=== PATIENT | female | born 1935 | race Caucasian/White ===

== ENCOUNTER 2017-08-09 13:11 | Inpatient (IN) | payer MEDICARE, BC ==
[2017-08-09] MEDS ORDERED: Furosemide 20 MG/2 ML VIAL IV ONE ×3 (13:45→21:00)
[2017-08-09] MEDS ORDERED: Acetaminophen 325 MG Tab PO PRN (13:47)
[2017-08-09] MEDS: Sodium Chloride 0.9% 10 ML Syringe FLUSH PRN (14:31)
[2017-08-09] MEDS ORDERED: Take Home: Albuterol 6.7 GM Inhaler, 1 Inhaler Pack INH PRN (14:50)
[2017-08-09] MEDS ORDERED: MYCOLOG TOP PRN (16:07)
[2017-08-09] MEDS: Omeprazole 20 MG Cap.CR PO SCH (16:29)
[2017-08-09] MEDS: Ferrous Sulfate 325 MG Tab PO SCH (16:29)
[2017-08-09] MEDS ORDERED: Albuterol 8 GM Inhaler INH PRN (16:51)
[2017-08-09] MEDS ORDERED: Dextran 70/Hypromellose/PF Ophth Soln 0.9 ML UD EYEBOTH PRN (17:00)
[2017-08-09] MEDS: Albuterol 0.083% 2.5 MG/3 ML Neb Soln NEB PRN (18:50)
[2017-08-09] MEDS: Acetaminophen 500 MG Tab PO SCH (21:14)
[2017-08-09] MEDS: Beta-Carotene (Vitamin A) w/Vitamin C & E plus Minerals Tab PO SCH (21:15)
[2017-08-09] MEDS: atorvaSTATin 10 MG Tab PO SCH (21:15)
[2017-08-09] MEDS: Pramipexole 0.125 MG Tab PO SCH (21:15)
[2017-08-09] MEDS: busPIRone 15 MG Tab PO SCH (21:15)
[2017-08-09] MEDS: Multivitamins with Iron/Calcium/Folic Acid/Minerals Tab PO SCH (21:16)
[2017-08-09] MEDS: Cholecalciferol (Vitamin D3) 1,000 Unit Tab PO SCH (21:16)
[2017-08-09] MEDS: Calcium Carbonate/Vitamin D3 1250 MG-200 Unit Tab PO SCH (21:16)
[2017-08-09] MEDS: Carvedilol 3.125 MG Tab PO SCH (21:16)
--- NOTE | 2017-08-10 00:07 | HP ---
CHIEF COMPLAINT: Shortness of breath with exertion, fatigue, and weakness. HISTORY OF PRESENT ILLNESS: The patient is an 81-year-old female, who presented to the clinic today with her daughter. The patient was having problems with swelling of her legs and shortness of breath for two weeks. She has not taken her fluid pills since 07/28/2017, but has recently started them. The patient's daughter had a fairly sudden decline of health and on , and the was just yesterday. The family had called in with concerns about shortness of breath, which was possibly anxiety related, so she was given an alprazolam to help her sleep. She did admit to not taking her fluid pills since 07/28/2017, but in actuality, she has only been taking her morning dose of pills, and had not been taking her evening dose of pills for quite some time. She does have a pressure or heaviness in her chest with exertion, but with rest, it is okay. The patient is known to have diastolic CHF. She last had her echocardiogram on 06/26/2017, at which time, ejection fraction was 55% and mild hypertrophy of left ventricle. She had moderate aortic stenosis with mean gradient of 35, mild mitral stenosis, and moderate mitral regurgitation. She had [id number] pulmonary hypertension. When compared to 2016, it could not as there were not as many calibrations taken. At the time an echo was done, she was not having any sort of chest pain, not having any shortness of breath with exertion, or chest pain. To note, patient has not had any problems with coronary artery disease. She has had hypertension, hyperlipidemia, and hyperglycemia. The patient had had lab work last done at the clinic in 05/2017, which showed proBNP of 218 with normal being 100 or less, glucose of 115, creatinine of 0.76, BUN of 14, sodium of 134, potassium of 4.7, and calcium of 9.3. LFTs were normal. Albumin was 3.9. Lipids showed total cholesterol of 177 and LDL of 100. Hemoglobin A1c had been 5.4 and TSH of 0.83. White blood cell count was 6.8, hemoglobin was 13.8, MCV was 94.4, and platelets were 194. The patient has been feeling quite sad over her daughter's decline of health. To note, that patient does have nocturnal oxygen that she uses. It was noted today when she presented to the clinic, that her O2 saturations had dropped down to 85% to 86%, so oxygen was placed in the clinic on her. MEDICATIONS: The patient is currently on 1. Tylenol 500 mg two pills twice a day. 2. Alprazolam 0.25 mg one pill twice a day as needed (just started). 3. Amlodipine 5 mg one pill at bedtime. 4. Aspirin 81 mg one pill daily. 5. Lipitor 20 mg half a pill a day. 6. Bilberry 80 mg one pill daily. 7. Biotin 5 mg one pill daily. 8. BuSpar 15 mg 1-/2 pills twice a day. 9. Calcium 600 mg one pill twice a day. 10.Carvedilol 3.125 mg two pills in the morning and one pill in the evening. 11.Celexa 40 mg one pill a day. 12.Cranberry pills 300 mg one pill a day, cranberry Vaccinium oxycoccos one pill daily, and cranberry with vitamin C 250/30 one pill a day. 13.Furosemide 40 mg one pill in the morning and half pill in the evening (has only been taking one pill in the morning). 14.Levothyroxine 50 mcg one pill a day. 15.Losartan 100 mg one pill a day. 16.Lutein 20 mg one pill a day. 17.Magnesium citrate one pill daily. 18.Multivitamin one pill daily. 19.Ocuvite two pills once a day. 20.Mycolog-II cream b.i.d. p.r.n. 21.[place]clouth-3 1000 mg one pill daily. 22.Omeprazole 20 mg one pill in the morning. 23.Oxygen 1 L at bedtime. 24.Systane eye drops, one drop every four hours as needed. 25.Mirapex 0.125 mg two pills take 2 hours before bedtime and one pill in the morning. 26.ProAir two puffs every 4 hours as needed. 27.Vitamin D 1000 units one pill at bedtime. ALLERGIES: Codeine causes hives. Lisinopril causes a cough. Amoxicillin, nausea and vomiting. Augmentin, nausea and vomiting. Hydrocodone, nausea and vomiting and diarrhea. Tramadol, nausea and diarrhea. PAST MEDICAL HISTORY: The patient has had 1. Hypertension. 2. Hypercholesterolemia. 3. Chronic diastolic CHF noted on 11/13/2012. 4. She has had cardiomegaly noted in 2011. Most recent echocardiogram on 06/26/2017 showed ejection fraction of 55%. 5. She has had mitral valve stenosis with aortic valve stenosis noted since 2007. Echo done in 06/2017, same ejection fraction of 55%. 6. The patient had a normal Cardiolite stress test in 02/2005. 7. Abnormal EKG in 2011, she started Coreg. 8. The patient has had colonoscopy on 12/25/2002, and she was not going to have a further one that she is over 78 now. 9. She has had candidiasis of her vulva and vagina. 10.She has had a benign essential tremor, seen by Neurology. 11.She has had anxiety and started buspirone in 2012, increased dose in 2012. 12.She has had fasting hyperglycemia noted in 2016 at 112. 13.She had normal bone density tests in 2003 and 2015. 14.Pulmonary hypertension was noted on 06/26/2017 with an ejection fraction of 55% and pulmonary artery pressure of 56. 15.She has had arthralgias. 16.She has had hypertension. 17.Chronic low back pain. 18.She has had back surgery in 04/2006 with revision at L5-S1. She has had epidural injections. 19.She has had chronic obstructive lung disease with PFTs done on 10/25/2006, which showed FEV1 of 91%, FEF 25-75 improved with bronchodilator. 20.She has had gastroesophageal reflux disease noted by upper GI in 2005. 21.She has had hypothyroidism. 22.Macular degeneration. 23.Obesity. 24.Obstructive sleep apnea with nocturnal hypoxemia. 25.She has had restless legs syndrome, on Mirapex. 26.Chronic bronchitis. 27.She had TIA in 2003 with tingling of her face and recurrent episode in 2003. PAST SURGICAL HISTORY: 1. She has had joint replacement in 2004. 2. Left CAMRYN in 2009. 3. She had a right TKA on 06/03/2013. 4. She has had bilateral cataract surgery. 5. She has had Avastin injections into her eyes. She has had retinal procedures done with Avastin. 6. She has had an appendectomy. 7. Bladder surgery. 8. Popliteal cyst space surgery. 9. She has had a hysterectomy, vaginal. 10.She has had spine surgery at L5-S1. 11.She has had tonsillectomy and adenoidectomy. FAMILY MEDICAL HISTORY: Mother has had heart attack, strokes, and cataracts. Father had diabetes, stroke, heart attacks, and macular degeneration. Sister had liver disease and cataracts. Her brother has had colorectal cancer. Her brother has had peritonitis. Daughter had stomach cancer at the age of 59, and has had severe childhood gray to her trunk. One son in a fire. There have been some alcohol issues and depression with some family members. SOCIAL HISTORY: The patient was in 2013. She will socially consume alcohol. She does not smoke. Her has had laryngeal cancer and severe COPD. The patient had been exposed to secondhand smoke. She does not exercise on a regular basis. She did have a grandson living with her who had alcohol issues. She is active in her congregational as well as family functions. REVIEW OF SYSTEMS: Constitutional: Her weight, which she thought had gone down, but has stayed the same. No dizziness. She feels fatigued. Cardiopulmonary: She does have chest pain with exertion as well as shortness of breath with exertion. Gastrointestinal: She denies any nausea. No diarrhea. No blood in her stools. Genitourinary: No problems with urination. Joints: She does have some back pain as well as neck pain. Dermatologic: No skin rashes were noted. PHYSICAL EXAMINATION: Vital Signs: Objectively, her weight is 228, which is up four pounds from 2 months ago. Blood pressure is 118/70, temperature is 97.3, pulse is 61, and sats are 93% on 2 L, but was 85 on room air. Skin: Pale, warm, and dry. HEENT: Pupils are equal and reactive to light. Pharynx is normal. Neck: No JVD was appreciated. No anterior cervical lymphadenopathy or thyromegaly. Heart: Regular rate and rhythm with 2/6 systolic ejection murmur. Lungs: Have diminished breath sounds on bases, but she has a weak inspiratory effort. Abdomen: Obese and soft. No hepatosplenomegaly. Genitals: Declined. Breasts: Declined. Extremities: Lower extremities do have 2+ edema. Neurologic: She is slightly hard of hearing. She is pleasant to visit with. LABORATORY DATA: Came back that her hemoglobin was 6.7 with MCV of 88, MCH of 25, platelets of 285, 75 segs, 1 band, 14 lymphocytes, moderate anisocytosis, moderate poikilocytosis, few schistocytes, and hypochromasia. Her sodium was 141, potassium was 3.8, creatinine was 0.9, BUN was 23, glucose was 107, calcium corrected was 8.79, albumin was 2.9, alkaline phosphatase 86, ALT 20, and AST 13. Troponin I is normal at 0.025. ProBNP was elevated at 2431. TSH is normal at 2.4. DIAGNOSTIC STUDIES: EKG shows a normal sinus rhythm with a widened QRS in lateral leads, which is new from 2014's EKG; consider inferior lateral ischemia. Chest x-ray shows cardiomegaly with CHF present. IMPRESSION: 1. Acute on chronic diastolic congestive heart failure. 2. Profound anemia. 3. Abnormal EKG with QRS widening, suspect ischemic cardiomyopathy. 4. Aortic stenosis. 5. Mitral regurgitation. 6. Anxiety disorder. 7. Depression. 8. Chronic nocturnal hypoxemia. PLAN: The patient will be admitted to Acute Care. We will transfuse with two units of packed RBCs. She was explained risks, benefits, and alternatives of transfusions including risk of reaction to blood products or acquisition of infection. Also, we will diurese her with IV diuretics very carefully. Her blood pressure is somewhat borderline hypotensive. We will hold her amlodipine. We will get her back on oral Lasix once she is diuresed. She will need to have further workup of source of gastrointestinal blood loss as she has had previous colonoscopy remotely. She has had known upper GI problems. We will increase her Prilosec to 20 mg b.i.d. The patient is code level 1 status. If her condition would deteriorate, she may need transfer to [place]. GM08/09/2017 17:38:56 MODL: 08/09/2017 23:38:27 /[id number]
[2017-08-10] MEDS: Omeprazole 20 MG Cap.CR PO SCH ×2 (06:07→16:24)
[2017-08-10] MEDS: Levothyroxine 50 MCG Tab PO SCH (06:07)
[2017-08-10] MEDS: Albuterol 0.083% 2.5 MG/3 ML Neb Soln NEB PRN ×2 (06:10→10:55)
[2017-08-10] MEDS ORDERED: Omeprazole 20 MG Cap.CR PO SCH (08:00)
[2017-08-10] MEDS: Citalopram 20 MG Tab PO SCH (08:10)
[2017-08-10] MEDS: busPIRone 15 MG Tab PO SCH ×2 (08:10→22:21)
[2017-08-10] MEDS: Losartan 50 MG Tab PO SCH (08:11)
[2017-08-10] MEDS: Aspirin 81 MG Tab.EC PO SCH (08:11)
[2017-08-10] MEDS: Beta-Carotene (Vitamin A) w/Vitamin C & E plus Minerals Tab PO SCH ×2 (08:11→22:17)
[2017-08-10] MEDS: Multivitamins with Iron/Calcium/Folic Acid/Minerals Tab PO SCH ×2 (08:11→22:17)
[2017-08-10] MEDS: Calcium Carbonate/Vitamin D3 1250 MG-200 Unit Tab PO SCH ×2 (08:11→22:17)
[2017-08-10] MEDS: Ferrous Sulfate 325 MG Tab PO SCH (08:11)
[2017-08-10] MEDS: Cranberry 500 MG Cap PO SCH (08:11)
[2017-08-10] MEDS: Carvedilol 6.25 MG Tab PO SCH (08:11)
[2017-08-10] MEDS: Pramipexole 0.125 MG Tab PO SCH ×2 (08:12→22:17)
[2017-08-10] MEDS: Fish Oil/Omega-3 Fatty Acids 1 Gm Cap PO SCH (08:12)
[2017-08-10] MEDS: LUTEIN PO SCH (08:13)
[2017-08-10] MEDS: Sodium Chloride 0.9% 10 ML Syringe FLUSH PRN (08:14)
[2017-08-10] MEDS: Acetaminophen 500 MG Tab PO SCH ×2 (08:15→22:19)
[2017-08-10] MEDS ORDERED: Furosemide 40 MG/4 ML VIAL IV SCH (08:15)
[2017-08-10] MEDS: BILBERRY FRUIT EXTRACT PO SCH (08:16)
--- NOTE | 2017-08-10 08:54 | PN ---
Progress Note for KELLY STERN Date: 08/10/2017 Room #: VM.215 SUBJECTIVE: The patient is still feeling fatigued and weak. She did receive her 2 units of blood during the evening. She denies feeling more short of breath. She denies chest pain. She does get winded easily with activity. OBJECTIVE: Vital Signs: Her weight is 98 kg today, which is down 3 kg from admission. Blood pressure is 127/53, pulse 68, temperature 36.4, sats are 92% on 3 L, and respiratory rate is 24. General: The patient still appears to be slightly winded. She is still pale. Heart: Regular rate and rhythm with a 3/6 systolic ejection murmur. Lungs: Diminished breath sounds on bases. Abdomen: Soft. Extremities: 1+ edema. Neurologic: She does move all extremities symmetric. She does appear slightly anxious still. LABORATORY DATA: Her lab today shows that her hemoglobin has improved to 7.8 from 5.6 on admission. Her white blood cell count 6.5 and platelets 223. Sodium is 143, potassium dropped to 3.3, creatinine 0.9, GFR 60, calcium 7.6, albumin had been low on admission, and magnesium normal at 2.2. Urinalysis was normal on admission. IMAGING: EKG today shows sinus rhythm, left bundle branch block. QRS duration is 147, which has increased from 136 from yesterday. Chest x-ray is pending. IMPRESSION: 1. Exacerbation of congestive heart failure, improved. 2. Profound anemia, improved after transfusion. 3. Chronic congestive heart failure. 4. Aortic stenosis. 5. Anxiety disorder. 6. Hypokalemia. 7. Malnutrition. PLAN: The patient was started yesterday on oral iron pills. We will start her on oral potassium today. We will continue IV Lasix today. We will check her lab tomorrow. If stable tomorrow and if strong enough, the patient could be considered to be discharged home and to be resumed on her maintenance Lasix of 20 in the morning and 10 in the evening. To note, her troponin is 0.037, which is still normal, but did trend upward just slightly, which is still normal. The patient will eventually need to have a cardiac workup because of her new left bundle branch block that was present. Dr. Maribel Lu will follow the patient for the weekend. Chest xray viewed, and does appear worse with right lung congestion. Will check for influenza, as well as place on antibiotic to cover for possible pneumonitis. GM08/10/2017 08:25:54 MODL: 08/10/2017 08:46:25 /[id number] MTDD
[2017-08-10] MEDS: BIOTIN 5 MG PO SCH (09:10)
[2017-08-10] MEDS: AZO CRANBERRY PO SCH (09:10)
[2017-08-10] MEDS: MAGNESIUM CITRATE 100 MG PO SCH (09:10)
[2017-08-10] MEDS: Potassium Chloride 10 MEQ Tab.ER PO SCH (09:16)
[2017-08-10] MEDS: ALPRAZolam 0.25 MG Tab PO PRN (09:21)
[2017-08-10] MEDS ORDERED: Azithromycin 250 MG Tab PO ONE (10:00)
[2017-08-10] MEDS: Furosemide 40 MG/4 ML VIAL IV SCH (16:24)
[2017-08-10] MEDS: Cholecalciferol (Vitamin D3) 1,000 Unit Tab PO SCH (22:17)
[2017-08-10] MEDS: atorvaSTATin 10 MG Tab PO SCH (22:18)
[2017-08-10] MEDS: Carvedilol 3.125 MG Tab PO SCH (22:18)
[2017-08-11] MEDS: Albuterol 0.083% 2.5 MG/3 ML Neb Soln NEB PRN ×3 (02:42→20:45)
[2017-08-11] MEDS: ALPRAZolam 0.25 MG Tab PO PRN ×2 (02:45→20:42)
[2017-08-11] MEDS ORDERED: Azithromycin 250 MG Tab PO SCH (08:00)
[2017-08-11] MEDS: Levothyroxine 50 MCG Tab PO SCH (08:17)
[2017-08-11] MEDS: Omeprazole 20 MG Cap.CR PO SCH ×2 (08:17→16:55)
[2017-08-11] MEDS: Acetaminophen 500 MG Tab PO SCH ×2 (08:28→20:41)
[2017-08-11] MEDS: BILBERRY FRUIT EXTRACT PO SCH (08:29)
[2017-08-11] MEDS: busPIRone 15 MG Tab PO SCH ×2 (08:29→20:43)
[2017-08-11] MEDS: BIOTIN 5 MG PO SCH (08:29)
[2017-08-11] MEDS: Calcium Carbonate/Vitamin D3 1250 MG-200 Unit Tab PO SCH ×2 (08:30→20:42)
[2017-08-11] MEDS: Citalopram 20 MG Tab PO SCH (08:31)
[2017-08-11] MEDS: Carvedilol 6.25 MG Tab PO SCH (08:31)
[2017-08-11 08:32] LABS: CHLORIDE,CL 105 mmol/L (98-107); SODIUM,NA 144 mmol/L (136-145)
[2017-08-11] MEDS: Losartan 50 MG Tab PO SCH (08:32)
[2017-08-11] MEDS: Ferrous Sulfate 325 MG Tab PO SCH (08:32)
[2017-08-11] MEDS: AZO CRANBERRY PO SCH (08:33)
[2017-08-11] MEDS: Cranberry 500 MG Cap PO SCH (08:33)
[2017-08-11] MEDS: Beta-Carotene (Vitamin A) w/Vitamin C & E plus Minerals Tab PO SCH ×2 (08:33→20:42)
[2017-08-11] MEDS: Fish Oil/Omega-3 Fatty Acids 1 Gm Cap PO SCH (08:34)
[2017-08-11] MEDS: Multivitamins with Iron/Calcium/Folic Acid/Minerals Tab PO SCH ×2 (08:34→20:42)
[2017-08-11] MEDS: Aspirin 81 MG Tab.EC PO SCH (08:34)
[2017-08-11] MEDS: LUTEIN PO SCH (08:36)
[2017-08-11] MEDS: MAGNESIUM CITRATE 100 MG PO SCH (08:36)
[2017-08-11] MEDS: Sodium Chloride 0.9% 10 ML Syringe FLUSH PRN (08:40)
[2017-08-11] MEDS: Potassium Chloride 10 MEQ Tab.ER PO SCH (08:40)
[2017-08-11] MEDS: Furosemide 40 MG Tab PO SCH ×2 (08:41→16:55)
[2017-08-11] MEDS: Pramipexole 0.125 MG Tab PO SCH ×2 (08:41→20:41)
[2017-08-11] MEDS: Furosemide 40 MG/4 ML VIAL IV SCH (09:00)
--- NOTE | 2017-08-11 09:51 | PCM.PN ---
- General Info Date of Service: 08/11/17 Subjective Update: Patient is feeling quite well this morning. She states her shortness of breath is much improved and is near her baseline. She is still coughing but this is improved some as well. No chest pain. No leg swelling. No fever or chills. She is wondering if she can go home today. - Review of Systems General: Reports: No Symptoms HEENT: Reports: No Symptoms Pulmonary: Reports: Shortness of Breath, Cough Cardiovascular: Reports: No Symptoms Gastrointestinal: Reports: No Symptoms Genitourinary: Reports: No Symptoms Musculoskeletal: Reports: No Symptoms Skin: Reports: No Symptoms - Patient Data Vitals - Most Recent: Last Vital Signs Temp 36.7 C 08/11/17 06:00 Pulse 76 08/11/17 08:19 Resp 18 08/11/17 06:00 BP 136/44 L 08/11/17 08:32 Pulse Ox 91 L 08/11/17 07:38 Weight - Most Recent: 96.67 kg I&O - Last 24 Hours: Intake & Output 08/10/17 08/11/17 08/11/17 22:59 06:59 14:59 Intake Total 200 720 200 Output Total 600 950 Balance -400 -230 200 Lab Results Last 24 Hours: Laboratory Results - last 24 hr 08/11/17 08/11/17 Range/Units 07:29 07:29 WBC 7.1 (4.0-10.0) x10^3/uL RBC 2.62 L (4.00-5.50) x10^6/uL Hgb 7.1 L* (12.0-16.0) g/dL Hct 24.0 L (33.0-47.0) % MCV 91.6 (78.0-93.0) fL MCH 27.1 (26.0-32.0) pg MCHC 29.6 L (32.0-36.0) g/dL RDW Coeff of Don 15.5 H (10.0-15.0) % Plt Count 248 (130-400) x10^3/uL Neut % (Auto) 74.7 (50.0-80.0) % Lymph % (Auto) 13.1 L (25.0-50.0) % [place] % (Auto) 9.4 (2.0-11.0) % Eos % (Auto) 2.5 (0.0-4.0) % Baso % (Auto) 0.3 (0.2-1.2) % Sodium 144 (136-145) mmol/L Potassium 3.4 L (3.5-5.1) mmol/L Chloride 105 (98-107) mmol/L Carbon Dioxide 32 (21-32) mmol/L BUN 15 (7-18) mg/dL Creatinine 0.8 (0.55-1.02) mg/dL Est Cr Clr Drug Dosing 38.27 mL/min Estimated GFR (MDRD) > 60 Glucose 95 (74-106) mg/dL Calcium 7.5 L (8.5-10.1) mg/dL C-Reactive Protein 1.1 H (<=0.9) mg/dL NT-Pro-B Natriuret Pep 3034 H (<=450) pg/mL Wili Results Last 24 Hours: Microbiology 08/10/17 10:00 Influenza Type A Antigen Screen - Final Nasopharyngeal Swab - Nare, Left NEGATIVE INFLUENZA A VIRUS AG Influenza Type B Antigen Screen - Final NEGATIVE INFLUENZA B VIRUS AG Med Orders - Current: Current Medications Acetaminophen (Tylenol) 650 mg PO Q4H PRN PRN Reason: Pain (Mild 1-3)/fever Acetaminophen (Tylenol Extra Strength) 1,000 mg PO BID [facility] Last Admin: 08/11/17 08:28 Dose: 1,000 mg Albuterol (Proventil Neb Soln) 2.5 mg NEB Q4HRRT PRN PRN Reason: Cough Last Admin: 08/11/17 07:37 Dose: 2.5 mg Albuterol (Ventolin Hfa) 0 gm INH Q4H PRN PRN Reason: Shortness of Breath Alprazolam (Xanax) 0.25 mg PO Q12H PRN PRN Reason: Anxiety Last Admin: 08/11/17 02:45 Dose: 0.25 mg Artificial Tears (Tears Naturale Free) 0 each EYEBOTH Q4H PRN PRN Reason: DRY EYE Last Admin: 08/09/17 21:16 Dose: 1 each Aspirin (Halfprin) 81 mg PO DAILY [facility] Last Admin: 08/11/17 08:34 Dose: 81 mg Atorvastatin Calcium (Lipitor) 10 mg PO BEDTIME [facility] Last Admin: 08/10/17 22:18 Dose: 10 mg Azithromycin (Zithromax) 250 mg PO DAILY [facility] Stop: 08/16/17 08:01 Last Admin: 08/11/17 08:35 Dose: 250 mg Buspirone HCl (Buspar) 22.5 mg PO BID [facility] Last Admin: 08/11/17 08:29 Dose: 22.5 mg Calcium Carbonate (Calcium Carbonate/Vitamin D 1250 Mg-200 Unit) 1 tab PO BID [facility] Last Admin: 08/11/17 08:30 Dose: 1 tab Carvedilol (Coreg) 3.125 mg PO BEDTIME [facility] Last Admin: 08/10/17 22:18 Dose: 3.125 mg Carvedilol (Coreg) 6.25 mg PO DAILY [facility] Last Admin: 08/11/17 08:31 Dose: 6.25 mg Cholecalciferol (Vitamin D3) 1,000 units PO BEDTIME [facility] Last Admin: 08/10/17 22:17 Dose: 1,000 units Citalopram Hydrobromide (Celexa) 40 mg PO DAILY [facility] Last Admin: 08/11/17 08:31 Dose: 40 mg Cranberry (Cranberry) 500 mg PO DAILY [facility] Last Admin: 08/11/17 08:33 Dose: 500 mg Ferrous Sulfate (Ferrous Sulfate) 325 mg PO DAILY [facility] Last Admin: 08/11/17 08:32 Dose: 325 mg Fish Oil (Fish Oil) 1 gm PO DAILY [facility] Last Admin: 08/11/17 08:34 Dose: 1 gm Furosemide (Lasix) 40 mg PO BIDDIURETIC [facility] Last Admin: 08/11/17 08:41 Dose: 40 mg Levothyroxine Sodium (Synthroid) 50 mcg PO DAILY@0700 [facility] Last Admin: 08/11/17 08:17 Dose: 50 mcg Losartan Potassium (Cozaar) 100 mg PO DAILY [facility] Last Admin: 08/11/17 08:32 Dose: 100 mg Multivitamins/Minerals (Thera M Plus) 1 tab PO BID [facility] Last Admin: 08/11/17 08:34 Dose: 1 tab Multivitamins/Minerals (Prosight) 1 tab PO BID [facility] Last Admin: 08/11/17 08:33 Dose: 1 tab Bilberry Fruit (Extract [Bilberry]) 1 tab PO DAILY [facility] Last Admin: 08/11/17 08:29 Dose: Not Given Lutein [Lutein] (Own (Supply)) 1 tab PO DAILY [facility] Last Admin: 08/11/17 08:36 Dose: Not Given Mycolog. ( Triamcinolone/Nystatin) Cream (Own Supply) 1 applic TOP BID PRN PRN Reason: Itching Biotin 5 Mg (Own (Supply)) 0 mg PO DAILY [facility] Last Admin: 08/11/17 08:29 Dose: Not Given Azo Cranberry Softgel 1 Cap (Own Supply) 1 cap PO DAILY [facility] Last Admin: 08/11/17 08:33 Dose: Not Given Magnesium Citrate (100mg (Own Supply)) 0 mg PO DAILY [facility] Last Admin: 08/11/17 08:36 Dose: Not Given Omeprazole (Omeprazole) 20 mg PO BIDAC [facility] Last Admin: 08/11/17 08:17 Dose: 20 mg Potassium Chloride (Klor-Con 10) 10 meq PO DAILY [facility] Last Admin: 08/11/17 08:40 Dose: 10 meq Pramipexole Dihydrochloride (Mirapex) 0.125 mg PO DAILY [facility] Last Admin: 08/11/17 08:41 Dose: 0.125 mg Pramipexole Dihydrochloride (Mirapex) 0.25 mg PO BEDTIME [facility] Last Admin: 08/10/17 22:17 Dose: 0.25 mg Sodium Chloride (Saline Flush) 10 ml FLUSH ASDIRECTED PRN PRN Reason: Keep Vein Open Last Admin: 08/11/17 08:40 Dose: 10 ml Discontinued Medications Azithromycin (Zithromax) 500 mg PO ONETIME ONE Stop: 08/10/17 10:01 Last Admin: 08/10/17 10:50 Dose: 500 mg Furosemide (Lasix) 20 mg IV ONETIME ONE Stop: 08/09/17 13:46 Last Admin: 08/09/17 14:30 Dose: 20 mg Furosemide (Lasix) 20 mg IV ONETIME ONE Stop: 08/09/17 16:01 Furosemide (Lasix) 20 mg IV ONETIME ONE Stop: 08/09/17 21:01 Last Admin: 08/09/17 21:04 Dose: 20 mg Furosemide (Lasix) 40 mg IV DAILY [facility] Last Admin: 08/10/17 09:16 Dose: 40 mg Furosemide (Lasix) 40 mg IV BIDDIURETIC [facility] Last Admin: 08/11/17 09:00 Dose: Not Given Omeprazole (Omeprazole) mg PO DAILY [facility] - Exam General: Alert, Cooperative, No Acute Distress HEENT: Mucous Membr. Moist/[place] Neck: Supple, Trachea Midline, No Thyromegaly. No: Lymphadenopathy Lungs: Crackles (at the bases bilaterally) Cardiovascular: Regular Rate, Regular Rhythm, Murmurs GI/Abdominal Exam: Normal Bowel Sounds, Soft, Non-Tender, No Organomegaly, No Distention, No Mass Extremities: Non-Tender, Pedal Edema (trace bilaterally) Peripheral Pulses: 2+: Radial (L), Radial (R), Posterior Tibial (L), Posterior Tibial (R) Skin: Warm, Dry, Intact - Problem List & Annotations (1) Diastolic CHF, acute on chronic SNOMED Code(s): 500828265 Code(s): I50.33 - ACUTE ON CHRONIC DIASTOLIC (CONGESTIVE) HEART FAILURE Status: Acute Current Visit: No Annotation/Comment:: - Symptoms have improved significantly. - Weight is down nicely. - BNP is higher today than when last checked; however, her CHF symptoms worsened after she was given the blood transfusion and her BNP was not checked at that time. Therefore, this is of questionable clinical significance. If she stays overnight tonight, will recheck tomorrow. - Oxygen requirements are decreasing but she is still needing some; she does have this available at home. (2) Anemia SNOMED Code(s): 181935383 Code(s): D64.9 - ANEMIA, UNSPECIFIED Status: Acute Current Visit: No Qualifiers: Anemia type: iron deficiency Iron deficiency anemia type: unspecified iron deficiency Qualified Code(s): D50.9 - Iron deficiency anemia, unspecified Annotation/Comment:: - Hgb back down to 7.1 today. - Patient did have a BM today so hemoccult will be completed. - She was started on iron supplementation yesterday. - Would hold off on further transfusions at this point given Hgb is above 7 and she had increased CHF symptoms after the last transfusion. - Recheck CBC at noon. - Depending on hemoccult and CBC results, will make decisions on whether she needs further inpatient evaluation of her anemia. If she does, will need to consider transfer to [place] for further assessment. (3) Aortic stenosis, moderate SNOMED Code(s): 67785156 Code(s): I35.0 - NONRHEUMATIC AORTIC (VALVE) STENOSIS Status: Chronic Current Visit: No Annotation/Comment:: - ECHO Jun 2017, stable, EF 60% - See otherwise under CHF above. (4) Hypokalemia SNOMED Code(s): 10993376 Code(s): E87.6 - HYPOKALEMIA Status: Acute Current Visit: Yes Annotation/Comment:: - K is gradually trending up. - Continue PO supplementation. (5) Anxiety SNOMED Code(s): 28058678 Code(s): F41.9 - ANXIETY DISORDER, UNSPECIFIED Status: Chronic Current Visit: No Annotation/Comment:: - Seems calm this am. - Home medications continued. - Problem List Review Problem List Initiated/Reviewed/Updated: Yes - My Orders Last 24 Hours: My Active Orders 08/11/17 08:17 Furosemide [Lasix] 40 mg PO BIDDIURETIC 08/11/17 12:00 CBC WITH AUTO DIFF [HEME] Routine - Assessment Assessment:: 81 yo female admitted with anemia and CHF exacerbation. Near her baseline this am. - Plan Plan:: See details under problems above. Patient will be switched to PO lasix. Other medications will be continued except for the antibiotics. The significant improvement from yesterday to today and the negative WBC would argue against her having any pneumonia; also CXR read by radiology as primarily CHF pattern. Influenza swab negative. Hemoccult pending; CBC to be rechecked at noon. Next steps depend on these results. May discharge today or else may need transfer to [place] for further evaluation of her anemia. Her son is concerned about weakness ; she did not have a PT/OT evaluation and this would not happen until Sunday. Family will plan to be here at 3:30 today and we will discuss the plan. She is not on anything for VTE prophylaxis given the anemia. Patient is full code.
--- NOTE | 2017-08-11 16:25 | PCM.SN ---
- Free Text/Narrative Note: Patient's hemoglobin back up to 7.7. Did locate PT assessment and PT is recommended. Will remain on acute status until tomorrow given medication adjustments today. As long as she continues to improve by tomorrow am, will plan to transition her to swing bed tomorrow. Patient and family in agreement with plan.
[2017-08-11] MEDS ORDERED: OXYMETAZOLINE 0.05% NAS SCH (20:00)
[2017-08-11] MEDS ORDERED: Oxymetazoline 0.05% Nasal Spray 15 ML Bottle NAS SCH (20:00)
[2017-08-11] MEDS: atorvaSTATin 10 MG Tab PO SCH (20:42)
[2017-08-11] MEDS: Cholecalciferol (Vitamin D3) 1,000 Unit Tab PO SCH (20:42)
[2017-08-11] MEDS: Carvedilol 3.125 MG Tab PO SCH (20:42)
[2017-08-12] MEDS: Omeprazole 20 MG Cap.CR PO SCH (06:34)
[2017-08-12] MEDS: Levothyroxine 50 MCG Tab PO SCH (06:34)
[2017-08-12] MEDS: Albuterol 0.083% 2.5 MG/3 ML Neb Soln NEB PRN (07:00)
[2017-08-12] MEDS: Pramipexole 0.125 MG Tab PO SCH (07:40)
[2017-08-12] MEDS: Beta-Carotene (Vitamin A) w/Vitamin C & E plus Minerals Tab PO SCH (07:40)
[2017-08-12] MEDS: Cranberry 500 MG Cap PO SCH (07:40)
[2017-08-12] MEDS: Aspirin 81 MG Tab.EC PO SCH (07:40)
[2017-08-12] MEDS: Losartan 50 MG Tab PO SCH (07:41)
[2017-08-12] MEDS: Multivitamins with Iron/Calcium/Folic Acid/Minerals Tab PO SCH (07:41)
[2017-08-12] MEDS: Citalopram 20 MG Tab PO SCH (07:42)
[2017-08-12] MEDS: Furosemide 40 MG Tab PO SCH (07:42)
[2017-08-12] MEDS: busPIRone 15 MG Tab PO SCH (07:43)
[2017-08-12] MEDS: Ferrous Sulfate 325 MG Tab PO SCH (07:43)
[2017-08-12] MEDS: Potassium Chloride 10 MEQ Tab.ER PO SCH (07:43)
[2017-08-12] MEDS: Calcium Carbonate/Vitamin D3 1250 MG-200 Unit Tab PO SCH (07:43)
[2017-08-12] MEDS: Carvedilol 6.25 MG Tab PO SCH (07:44)
[2017-08-12] MEDS: Acetaminophen 500 MG Tab PO SCH (07:45)
[2017-08-12] MEDS: Fish Oil/Omega-3 Fatty Acids 1 Gm Cap PO SCH (07:45)
[2017-08-12] MEDS: AZO CRANBERRY PO SCH (07:46)
[2017-08-12] MEDS: LUTEIN PO SCH (07:46)
[2017-08-12] MEDS: BILBERRY FRUIT EXTRACT PO SCH (07:46)
[2017-08-12] MEDS: BIOTIN 5 MG PO SCH (07:46)
[2017-08-12] MEDS: MAGNESIUM CITRATE 100 MG PO SCH (07:46)
[2017-08-12 08:08] LABS: CHLORIDE,CL 105 mmol/L (98-107); SODIUM,NA 144 mmol/L (136-145)
--- NOTE | 2017-08-12 09:07 | PCM.PN ---
- General Info Date of Service: 08/12/17 Subjective Update: Patient feels her breathing continues to improve. She has some shortness of breath but this is lasting less time when it occurs. Denies any chest pain, fever, or chills. Still with some cough but this is also improving. She is still weak but she will start working with PT again tomorrow. - Review of Systems General: Reports: No Symptoms HEENT: Reports: No Symptoms Pulmonary: Reports: Shortness of Breath, Cough Cardiovascular: Reports: No Symptoms Gastrointestinal: Reports: No Symptoms Genitourinary: Reports: No Symptoms Musculoskeletal: Reports: No Symptoms Skin: Reports: No Symptoms - Patient Data Vitals - Most Recent: Last Vital Signs Temp 36.3 C 08/12/17 06:00 Pulse 78 08/12/17 07:44 Resp 18 08/12/17 06:00 BP 139/72 08/12/17 07:44 Pulse Ox 91 L 08/12/17 07:01 Weight - Most Recent: 96.978 kg I&O - Last 24 Hours: Intake & Output 08/11/17 08/12/17 08/12/17 22:59 06:59 14:59 Intake Total 620 Output Total 400 800 Balance -400 -180 Lab Results Last 24 Hours: Laboratory Results - last 24 hr 08/11/17 08/12/17 08/12/17 Range/Units 11:53 07:27 07:27 WBC 7.8 6.9 (4.0-10.0) x10^3/uL RBC 2.86 L 2.75 L (4.00-5.50) x10^6/uL Hgb 7.7 L* 7.5 L* (12.0-16.0) g/dL Hct 25.9 L 25.2 L (33.0-47.0) % MCV 90.6 91.6 (78.0-93.0) fL MCH 26.9 27.3 (26.0-32.0) pg MCHC 29.7 L 29.8 L (32.0-36.0) g/dL RDW Coeff of Don 15.6 H 15.9 H (10.0-15.0) % Plt Count 260 254 (130-400) x10^3/uL Neut % (Auto) 77.6 74.9 (50.0-80.0) % Lymph % (Auto) 10.8 L 13.3 L (25.0-50.0) % [place] % (Auto) 9.6 8.4 (2.0-11.0) % Eos % (Auto) 1.7 3.3 (0.0-4.0) % Baso % (Auto) 0.3 0.1 L (0.2-1.2) % Sodium 144 (136-145) mmol/L Potassium 3.6 (3.5-5.1) mmol/L Chloride 105 (98-107) mmol/L Carbon Dioxide 31 (21-32) mmol/L BUN 17 (7-18) mg/dL Creatinine 0.8 (0.55-1.02) mg/dL Est Cr Clr Drug Dosing 38.27 mL/min Estimated GFR (MDRD) > 60 Glucose 99 (74-106) mg/dL Calcium 7.9 L (8.5-10.1) mg/dL NT-Pro-B Natriuret Pep 2791 H (<=450) pg/mL [facility] Results Last 24 Hours: Microbiology 08/10/17 10:00 Influenza Type A Antigen Screen - Final Nasopharyngeal Swab - Nare, Left NEGATIVE INFLUENZA A VIRUS AG Influenza Type B Antigen Screen - Final NEGATIVE INFLUENZA B VIRUS AG Med Orders - Current: Current Medications Acetaminophen (Tylenol) 650 mg PO Q4H PRN PRN Reason: Pain (Mild 1-3)/fever Acetaminophen (Tylenol Extra Strength) 1,000 mg PO BID [facility] Last Admin: 08/12/17 07:45 Dose: 1,000 mg Albuterol (Proventil Neb Soln) 2.5 mg NEB Q4HRRT PRN PRN Reason: Cough Last Admin: 08/12/17 07:00 Dose: 2.5 mg Albuterol (Ventolin Hfa) 0 gm INH Q4H PRN PRN Reason: Shortness of Breath Alprazolam (Xanax) 0.25 mg PO Q12H PRN PRN Reason: Anxiety Last Admin: 08/11/17 20:42 Dose: 0.25 mg Artificial Tears (Tears Naturale Free) 0 each EYEBOTH Q4H PRN PRN Reason: DRY EYE Last Admin: 08/09/17 21:16 Dose: 1 each Aspirin (Halfprin) 81 mg PO DAILY [facility] Last Admin: 08/12/17 07:40 Dose: 81 mg Atorvastatin Calcium (Lipitor) 10 mg PO BEDTIME [facility] Last Admin: 08/11/17 20:42 Dose: 10 mg Buspirone HCl (Buspar) 22.5 mg PO BID [facility] Last Admin: 08/12/17 07:43 Dose: 22.5 mg Calcium Carbonate (Calcium Carbonate/Vitamin D 1250 Mg-200 Unit) 1 tab PO BID [facility] Last Admin: 08/12/17 07:43 Dose: 1 tab Carvedilol (Coreg) 3.125 mg PO BEDTIME [facility] Last Admin: 08/11/17 20:42 Dose: 3.125 mg Carvedilol (Coreg) 6.25 mg PO DAILY [facility] Last Admin: 08/12/17 07:44 Dose: 6.25 mg Cholecalciferol (Vitamin D3) 1,000 units PO BEDTIME [facility] Last Admin: 08/11/17 20:42 Dose: 1,000 units Citalopram Hydrobromide (Celexa) 40 mg PO DAILY [facility] Last Admin: 08/12/17 07:42 Dose: 40 mg Cranberry (Cranberry) 500 mg PO DAILY [facility] Last Admin: 08/12/17 07:40 Dose: 500 mg Ferrous Sulfate (Ferrous Sulfate) 325 mg PO DAILY [facility] Last Admin: 08/12/17 07:43 Dose: 325 mg Fish Oil (Fish Oil) 1 gm PO DAILY [facility] Last Admin: 08/12/17 07:45 Dose: 1 gm Furosemide (Lasix) 40 mg PO BIDDIURETIC [facility] Last Admin: 08/12/17 07:42 Dose: 40 mg Levothyroxine Sodium (Synthroid) 50 mcg PO DAILY@0700 [facility] Last Admin: 08/12/17 06:34 Dose: 50 mcg Losartan Potassium (Cozaar) 100 mg PO DAILY [facility] Last Admin: 08/12/17 07:41 Dose: 100 mg Multivitamins/Minerals (Thera M Plus) 1 tab PO BID [facility] Last Admin: 08/12/17 07:41 Dose: 1 tab Multivitamins/Minerals (Prosight) 1 tab PO BID [facility] Last Admin: 08/12/17 07:40 Dose: 1 tab Bilberry Fruit (Extract [Bilberry]) 1 tab PO DAILY [facility] Last Admin: 08/12/17 07:46 Dose: Not Given Lutein [Lutein] (Own (Supply)) 1 tab PO DAILY [facility] Last Admin: 08/12/17 07:46 Dose: Not Given Mycolog. ( Triamcinolone/Nystatin) Cream (Own Supply) 1 applic TOP BID PRN PRN Reason: Itching Biotin 5 Mg (Own (Supply)) 0 mg PO DAILY [facility] Last Admin: 08/12/17 07:46 Dose: Not Given Azo Cranberry Softgel 1 Cap (Own Supply) 1 cap PO DAILY [facility] Last Admin: 08/12/17 07:46 Dose: Not Given Magnesium Citrate (100mg (Own Supply)) 0 mg PO DAILY [facility] Last Admin: 08/12/17 07:46 Dose: Not Given Omeprazole (Omeprazole) 20 mg PO BIDAC [facility] Last Admin: 08/12/17 06:34 Dose: 20 mg Oxymetazoline HCl (Afrin Original 0.05% Nasal [place]) 0 ml ERWIN BEDTIME [facility] Last Admin: 08/11/17 20:46 Dose: 1 dose Potassium Chloride (Klor-Con 10) 10 meq PO DAILY [facility] Last Admin: 08/12/17 07:43 Dose: 10 meq Pramipexole Dihydrochloride (Mirapex) 0.125 mg PO DAILY [facility] Last Admin: 08/12/17 07:40 Dose: 0.125 mg Pramipexole Dihydrochloride (Mirapex) 0.25 mg PO BEDTIME [facility] Last Admin: 08/11/17 20:41 Dose: 0.25 mg Sodium Chloride (Saline Flush) 10 ml FLUSH ASDIRECTED PRN PRN Reason: Keep Vein Open Last Admin: 08/11/17 08:40 Dose: 10 ml Discontinued Medications Azithromycin (Zithromax) 500 mg PO ONETIME ONE Stop: 08/10/17 10:01 Last Admin: 08/10/17 10:50 Dose: 500 mg Azithromycin (Zithromax) 250 mg PO DAILY [facility] Stop: 08/16/17 08:01 Last Admin: 08/11/17 08:35 Dose: 250 mg Furosemide (Lasix) 20 mg IV ONETIME ONE Stop: 08/09/17 13:46 Last Admin: 08/09/17 14:30 Dose: 20 mg Furosemide (Lasix) 20 mg IV ONETIME ONE Stop: 08/09/17 16:01 Furosemide (Lasix) 20 mg IV ONETIME ONE Stop: 08/09/17 21:01 Last Admin: 08/09/17 21:04 Dose: 20 mg Furosemide (Lasix) 40 mg IV DAILY [facility] Last Admin: 08/10/17 09:16 Dose: 40 mg Furosemide (Lasix) 40 mg IV BIDDIURETIC [facility] Last Admin: 08/11/17 09:00 Dose: Not Given Omeprazole (Omeprazole) mg PO DAILY [facility] - Exam General: Alert, Cooperative, No Acute Distress HEENT: Mucous Membr. Moist/[place] Neck: Supple, Trachea Midline, No Thyromegaly. No: Lymphadenopathy Lungs: Normal Respiratory Effort, Crackles (at the bases bilaterally) Cardiovascular: Regular Rate, Regular Rhythm, Murmurs GI/Abdominal Exam: Normal Bowel Sounds, Soft, Non-Tender, No Organomegaly, No Distention, No Mass Extremities: Normal Inspection, Non-Tender, Pedal Edema (trace bilaterally) Peripheral Pulses: 2+: Radial (L), Radial (R), Posterior Tibial (L), Posterior Tibial (R) Skin: Warm, Dry, Intact - Problem List & Annotations (1) Diastolic CHF, acute on chronic SNOMED Code(s): 057248646 Code(s): I50.33 - ACUTE ON CHRONIC DIASTOLIC (CONGESTIVE) HEART FAILURE Status: Acute Current Visit: No Annotation/Comment:: - Symptoms continue to improve. Weight is stable today. BNP is also down today. - Cause possibly a cardiac event given elevated troponins but further work-up is planned outpatient. The anemia could also have caused the exacerbation but also wonder whether the drop in hemoglobin was dilution from her fluid overload. - Oxygen requirements continue to decrease. Will wean as able. (2) Anemia SNOMED Code(s): 317607316 Code(s): D64.9 - ANEMIA, UNSPECIFIED Status: Acute Current Visit: No Qualifiers: Anemia type: iron deficiency Iron deficiency anemia type: unspecified iron deficiency Qualified Code(s): D50.9 - Iron deficiency anemia, unspecified Annotation/Comment:: - Hgb stable at 7.5 today. - Hemoccult negative. - Continue iron supplementation. - Would hold off on further transfusions at this point given Hgb is above 7 and she had increased CHF symptoms after the last transfusion. - Can likely delay recheck for a couple of days. (3) Aortic stenosis, moderate SNOMED Code(s): 71349967 Code(s): I35.0 - NONRHEUMATIC AORTIC (VALVE) STENOSIS Status: Chronic Current Visit: No Annotation/Comment:: - ECHO Jun 2017, stable, EF 60% - See otherwise under CHF above. (4) Hypokalemia SNOMED Code(s): 44597319 Code(s): E87.6 - HYPOKALEMIA Status: Acute Current Visit: Yes Annotation/Comment:: - K is gradually trending up. - Continue PO supplementation. (5) Anxiety SNOMED Code(s): 68044036 Code(s): F41.9 - ANXIETY DISORDER, UNSPECIFIED Status: Chronic Current Visit: No Annotation/Comment:: - Seems calm this am. - Home medications continued. - Problem List Review Problem List Initiated/Reviewed/Updated: Yes - My Orders Last 24 Hours: My Active Orders 08/11/17 08:17 Furosemide [Lasix] 40 mg PO BIDDIURETIC 08/11/17 20:00 Oxymetazoline [Afrin Original 0.05% Nasal [place]] 0 ml ERWIN BEDTIME - Assessment Assessment:: 81 yo female admitted with anemia and CHF exacerbation. Continues to improve. - Plan Plan:: See details under problems above. Continue PO lasix. Other medications will be continued. Hemoccult negative; Hgb stable. Next steps depend on these results. She actually did have a PT/OT evaluation and they did recommend physical therapy. Patient is stable for dismissal from a medical standpoint today; therefore, she will be transitioned to swing bed status. She has not been on anything for VTE prophylaxis given stability of her Hgb was only proven yesterday and she is now back to her usual functional status from what it sounds. Patient is full code.
--- NOTE | 2017-08-12 09:17 | PCM.DCSUM1 ---
Discharge Summary - Hospital Course Brief History: Mrs. Gr is an 81 yo female who was admitted for a CHF exacerbation and severe anemia after presenting to clinic with shortness of breath. - Discharge Data Discharge Date: 08/12/17 Discharge Disposition: DC/Tfer W/I Hosp To Swing 61 Condition: Good - Discharge Diagnosis/Problem(s) (1) Diastolic CHF, acute on chronic SNOMED Code(s): 536714809 ICD Code: I50.33 - ACUTE ON CHRONIC DIASTOLIC (CONGESTIVE) HEART FAILURE Status: Acute Current Visit: No Problem Details: - Symptoms continue to improve. Weight is stable today. BNP is also down today. - Cause possibly a cardiac event given elevated troponins but further work-up is planned outpatient. The anemia could also have caused the exacerbation but also wonder whether the drop in hemoglobin was dilution from her fluid overload. - Oxygen requirements continue to decrease. Will wean as able. (2) Anemia SNOMED Code(s): 808891045 ICD Code: D64.9 - ANEMIA, UNSPECIFIED Status: Acute Current Visit: No Problem Details: - Hgb stable at 7.5 today. - Hemoccult negative. - Continue iron supplementation. - Would hold off on further transfusions at this point given Hgb is above 7 and she had increased CHF symptoms after the last transfusion. - Can likely delay recheck for a couple of days. Qualifiers: Anemia type: iron deficiency Iron deficiency anemia type: unspecified iron deficiency Qualified Code(s): D50.9 - Iron deficiency anemia, unspecified (3) Aortic stenosis, moderate SNOMED Code(s): 03094933 ICD Code: I35.0 - NONRHEUMATIC AORTIC (VALVE) STENOSIS Status: Chronic Current Visit: No Problem Details: - ECHO Jun 2017, stable, EF 60% - See otherwise under CHF above. (4) Hypokalemia SNOMED Code(s): 82282248 ICD Code: E87.6 - HYPOKALEMIA Status: Acute Current Visit: Yes Problem Details: - K is gradually trending up. - Continue PO supplementation. (5) Anxiety SNOMED Code(s): 64613871 ICD Code: F41.9 - ANXIETY DISORDER, UNSPECIFIED Status: Chronic Current Visit: No Problem Details: - Seems calm this am. - Home medications continued. - Patient Summary/Data Operative Procedure(s) Performed: none Complications: none Consults: Consultations 08/09/17 13:47 Consult to Inorganic Chemical Technician [CONS] Routine Consult to Spiritual Care [CONS] Routine PT Evaluation and Treatment [CONS] Routine Labs Pending at D/C: none Recommended Follow-up Testing/Procedures: CBC and BMP follow-up this week while on swing bed Planned Operative Procedure(s) after DC: none Hospital Course: See details under problems above. Her shortness of breath improved with transfusion of 2 units PRBC's and diuresis. She did have elevated troponins and a new LBBB but the troponins remained stable. In the absence of symptoms of coronary ischemia, work-up for this was deferred to the outpatient setting. She did develop hypokalemia, which resolved with oral supplementation. Hemoccult negative; hemoglobins remained stable following transfusion. She was found to be iron deficient and was started on iron supplementation. In light of her cough , there was concern for pneumonia vs. influenza. Her influenza swab was negative. She was started on antibiotics but significantly improved the following day, at which point pneumonia was felt to be highly unlikely. Therefore, the antibiotics were discontinued and she has done fine over the weekend. Her hospitalization was otherwise uncomplicated. She will be transitioning to swing bed today. - Patient Instructions Diet: Usual Diet as Tolerated - Discharge Plan Home Medications: Home Meds Acetaminophen [Acetaminophen Es] 1,000 mg PO BID 03/25/14 [History] Aspirin [Halfprin] 81 mg PO BEDTIME 03/25/14 [History] Bilberry Fruit Extract [Bilberry] 80 mg PO DAILY 03/25/14 [History] Calcium Carbonate [Calcium] 600 mg PO BID 03/25/14 [History] Carvedilol [Coreg] 3.125 mg PO BEDTIME 03/25/14 [History] Carvedilol [Coreg] 6.25 mg PO DAILY 03/25/14 [History] Cholecalciferol (Vitamin D3) [Vitamin D3] 1,000 units PO BEDTIME 03/25/14 [ History] Cranberry Extract [Cranberry] 300 mg PO DAILY 03/25/14 [History] Losartan [Cozaar] 100 mg PO DAILY 03/25/14 [History] Lutein 20 mg PO DAILY 03/25/14 [History] Mobile-3 Fatty Acids [Mobile-3] 1,000 mg PO DAILY 03/25/14 [History] Omeprazole [Prilosec] 20 mg PO DAILY 03/25/14 [History] Pramipexole [Mirapex] 0.125 mg PO DAILY@1000 03/25/14 [History] Pramipexole [Mirapex] 0.25 mg PO BEDTIME 03/25/14 [History] Vit C/Vit E Ac/Lut/Mineral 1 [Prosight with Lutein] 1 tab PO BID 03/25/14 [ History] atorvaSTATin [Lipitor] 10 mg PO BEDTIME 03/25/14 [History] busPIRone HCl [Buspirone HCl] 22.5 mg PO BID 03/25/14 [History] ALPRAZolam [Alprazolam] 0.25 mg PO Q12H PRN 08/09/17 [History] Biotin 5 mg PO DAILY 08/09/17 [History] Citalopram [Celexa] 40 mg PO DAILY 08/09/17 [History] Cranberry Extract/Vit C [Azo Cranberry Softgel] 1 cap PO DAILY 08/09/17 [History ] Levothyroxine [Synthroid] 50 mcg PO DAILY 08/09/17 [History] Magnesium Citrate 100 mg PO DAILY 08/09/17 [History] Propylene Glycol/Peg 400 [Systane 0.3-0.4% Eye Drops] 1 drop EYEBOTH Q4H PRN 11/21 [History] Albuterol [IJD: Albuterol] 2.5 mg NEB Q4HRRT PRN nebule 08/12/17 [Rx] Ferrous Sulfate 325 mg PO DAILY tablet 08/12/17 [Rx] Furosemide [Lasix] 40 mg PO BIDDIURETIC tablet 08/12/17 [Rx] Oxymetazoline [Afrin Original 0.05% Nasal [place]] 0 ml ERWIN BEDTIME bottle [Rx] Potassium Chloride [Klor-Con 10] 10 meq PO DAILY tab.er 08/12/17 [Rx] - Discharge Summary/Plan Comment DC Time >30 min.: No - General Info Date of Service: 08/12/17 Subjective Update: See separate progress note from today. - Patient Data Vitals - Most Recent: Last Vital Signs Temp 36.3 C 08/12/17 06:00 Pulse 78 08/12/17 07:44 Resp 18 08/12/17 06:00 BP 139/72 08/12/17 07:44 Pulse Ox 91 L 08/12/17 07:01 Weight - Most Recent: 96.978 kg I&O - Last 24 hours: Intake & Output 08/11/17 08/12/17 08/12/17 22:59 06:59 14:59 Intake Total 620 Output Total 400 800 Balance -400 -180 Lab Results - Last 24 hrs: Laboratory Results - last 24 hr 08/11/17 08/12/17 08/12/17 Range/Units 11:53 07:27 07:27 WBC 7.8 6.9 (4.0-10.0) x10^3/uL RBC 2.86 L 2.75 L (4.00-5.50) x10^6/uL Hgb 7.7 L* 7.5 L* (12.0-16.0) g/dL Hct 25.9 L 25.2 L (33.0-47.0) % MCV 90.6 91.6 (78.0-93.0) fL MCH 26.9 27.3 (26.0-32.0) pg MCHC 29.7 L 29.8 L (32.0-36.0) g/dL RDW Coeff of Don 15.6 H 15.9 H (10.0-15.0) % Plt Count 260 254 (130-400) x10^3/uL Neut % (Auto) 77.6 74.9 (50.0-80.0) % Lymph % (Auto) 10.8 L 13.3 L (25.0-50.0) % [place] % (Auto) 9.6 8.4 (2.0-11.0) % Eos % (Auto) 1.7 3.3 (0.0-4.0) % Baso % (Auto) 0.3 0.1 L (0.2-1.2) % Sodium 144 (136-145) mmol/L Potassium 3.6 (3.5-5.1) mmol/L Chloride 105 (98-107) mmol/L Carbon Dioxide 31 (21-32) mmol/L BUN 17 (7-18) mg/dL Creatinine 0.8 (0.55-1.02) mg/dL Est Cr Clr Drug Dosing 38.27 mL/min Estimated GFR (MDRD) > 60 Glucose 99 (74-106) mg/dL Calcium 7.9 L (8.5-10.1) mg/dL NT-Pro-B Natriuret Pep 2791 H (<=450) pg/mL JAMIE Results - Last 24 hrs: Microbiology 08/10/17 10:00 Influenza Type A Antigen Screen - Final Nasopharyngeal Swab - Nare, Left NEGATIVE INFLUENZA A VIRUS AG Influenza Type B Antigen Screen - Final NEGATIVE INFLUENZA B VIRUS AG Med Orders - Current: Current Medications Acetaminophen (Tylenol) 650 mg PO Q4H PRN PRN Reason: Pain (Mild 1-3)/fever Acetaminophen (Tylenol Extra Strength) 1,000 mg PO BID [facility] Last Admin: 08/12/17 07:45 Dose: 1,000 mg Albuterol (Proventil Neb Soln) 2.5 mg NEB Q4HRRT PRN PRN Reason: Cough Last Admin: 08/12/17 07:00 Dose: 2.5 mg Albuterol (Ventolin Hfa) 0 gm INH Q4H PRN PRN Reason: Shortness of Breath Alprazolam (Xanax) 0.25 mg PO Q12H PRN PRN Reason: Anxiety Last Admin: 08/11/17 20:42 Dose: 0.25 mg Artificial Tears (Tears Naturale Free) 0 each EYEBOTH Q4H PRN PRN Reason: DRY EYE Last Admin: 08/09/17 21:16 Dose: 1 each Aspirin (Halfprin) 81 mg PO DAILY [facility] Last Admin: 08/12/17 07:40 Dose: 81 mg Atorvastatin Calcium (Lipitor) 10 mg PO BEDTIME [facility] Last Admin: 08/11/17 20:42 Dose: 10 mg Buspirone HCl (Buspar) 22.5 mg PO BID [facility] Last Admin: 08/12/17 07:43 Dose: 22.5 mg Calcium Carbonate (Calcium Carbonate/Vitamin D 1250 Mg-200 Unit) 1 tab PO BID [facility] Last Admin: 08/12/17 07:43 Dose: 1 tab Carvedilol (Coreg) 3.125 mg PO BEDTIME [facility] Last Admin: 08/11/17 20:42 Dose: 3.125 mg Carvedilol (Coreg) 6.25 mg PO DAILY [facility] Last Admin: 08/12/17 07:44 Dose: 6.25 mg Cholecalciferol (Vitamin D3) 1,000 units PO BEDTIME [facility] Last Admin: 08/11/17 20:42 Dose: 1,000 units Citalopram Hydrobromide (Celexa) 40 mg PO DAILY [facility] Last Admin: 08/12/17 07:42 Dose: 40 mg Cranberry (Cranberry) 500 mg PO DAILY [facility] Last Admin: 08/12/17 07:40 Dose: 500 mg Ferrous Sulfate (Ferrous Sulfate) 325 mg PO DAILY [facility] Last Admin: 08/12/17 07:43 Dose: 325 mg Fish Oil (Fish Oil) 1 gm PO DAILY [facility] Last Admin: 08/12/17 07:45 Dose: 1 gm Furosemide (Lasix) 40 mg PO BIDDIURETIC [facility] Last Admin: 08/12/17 07:42 Dose: 40 mg Levothyroxine Sodium (Synthroid) 50 mcg PO DAILY@0700 [facility] Last Admin: 08/12/17 06:34 Dose: 50 mcg Losartan Potassium (Cozaar) 100 mg PO DAILY [facility] Last Admin: 08/12/17 07:41 Dose: 100 mg Multivitamins/Minerals (Thera M Plus) 1 tab PO BID [facility] Last Admin: 08/12/17 07:41 Dose: 1 tab Multivitamins/Minerals (Prosight) 1 tab PO BID [facility] Last Admin: 08/12/17 07:40 Dose: 1 tab Bilberry Fruit (Extract [Bilberry]) 1 tab PO DAILY [facility] Last Admin: 08/12/17 07:46 Dose: Not Given Lutein [Lutein] (Own (Supply)) 1 tab PO DAILY [facility] Last Admin: 08/12/17 07:46 Dose: Not Given Mycolog. ( Triamcinolone/Nystatin) Cream (Own Supply) 1 applic TOP BID PRN PRN Reason: Itching Biotin 5 Mg (Own (Supply)) 0 mg PO DAILY [facility] Last Admin: 08/12/17 07:46 Dose: Not Given Azo Cranberry Softgel 1 Cap (Own Supply) 1 cap PO DAILY [facility] Last Admin: 08/12/17 07:46 Dose: Not Given Magnesium Citrate (100mg (Own Supply)) 0 mg PO DAILY [facility] Last Admin: 08/12/17 07:46 Dose: Not Given Omeprazole (Omeprazole) 20 mg PO BIDAC [facility] Last Admin: 08/12/17 06:34 Dose: 20 mg Oxymetazoline HCl (Afrin Original 0.05% Nasal [place]) 0 ml ERWIN BEDTIME [facility] Last Admin: 08/11/17 20:46 Dose: 1 dose Potassium Chloride (Klor-Con 10) 10 meq PO DAILY [facility] Last Admin: 08/12/17 07:43 Dose: 10 meq Pramipexole Dihydrochloride (Mirapex) 0.125 mg PO DAILY [facility] Last Admin: 08/12/17 07:40 Dose: 0.125 mg Pramipexole Dihydrochloride (Mirapex) 0.25 mg PO BEDTIME [facility] Last Admin: 08/11/17 20:41 Dose: 0.25 mg Sodium Chloride (Saline Flush) 10 ml FLUSH ASDIRECTED PRN PRN Reason: Keep Vein Open Last Admin: 08/11/17 08:40 Dose: 10 ml Discontinued Medications Azithromycin (Zithromax) 500 mg PO ONETIME ONE Stop: 08/10/17 10:01 Last Admin: 08/10/17 10:50 Dose: 500 mg Azithromycin (Zithromax) 250 mg PO DAILY [facility] Stop: 08/16/17 08:01 Last Admin: 08/11/17 08:35 Dose: 250 mg Furosemide (Lasix) 20 mg IV ONETIME ONE Stop: 08/09/17 13:46 Last Admin: 08/09/17 14:30 Dose: 20 mg Furosemide (Lasix) 20 mg IV ONETIME ONE Stop: 08/09/17 16:01 Furosemide (Lasix) 20 mg IV ONETIME ONE Stop: 08/09/17 21:01 Last Admin: 08/09/17 21:04 Dose: 20 mg Furosemide (Lasix) 40 mg IV DAILY [facility] Last Admin: 08/10/17 09:16 Dose: 40 mg Furosemide (Lasix) 40 mg IV BIDDIURETIC [facility] Last Admin: 08/11/17 09:00 Dose: Not Given Omeprazole (Omeprazole) mg PO DAILY [facility] *Q Meaningful Use (DIS) - VTE *Q VTE Criteria *Q: VTE Pharmacological Contraindications *Q: Patient has Severe Anemia - Stroke *Q Stroke Criteria *Q: - AMI *Q AMI Criteria *Q:
== END 2017-08-12 09:41 | disposition swing bed (61) | DRG 292 ==
LOC: VM.MS 13:15
PROVIDERS: ADMIT Family Medicine; ATTEND Family Medicine
PROC: 30233N1 Transfusion of Nonautologous Red Blood Cells into Peripheral Vein, Percutaneous Approach (ICD-10-PCS; principal; 2017-08-09)
DX: I11.0 Hypertensive heart disease with heart failure (principal); E46 Unspecified protein-calorie malnutrition; I50.33 Acute on chronic diastolic (congestive) heart failure; I25.5 Ischemic cardiomyopathy; F41.9 Anxiety disorder, unspecified; F32.9 Major depressive disorder, single episode, unspecified; R94.31 Abnormal electrocardiogram [ECG] [EKG]; G47.36 Sleep related hypoventilation in conditions classified elsewhere; D50.9 Iron deficiency anemia, unspecified; E87.6 Hypokalemia; I27.20 Pulmonary hypertension, unspecified; E78.00 Pure hypercholesterolemia, unspecified; I08.0 Rheumatic disorders of both mitral and aortic valves; E03.9 Hypothyroidism, unspecified; J44.9 Chronic obstructive pulmonary disease, unspecified; K21.9 Gastro-esophageal reflux disease without esophagitis; G47.33 Obstructive sleep apnea (adult) (pediatric); G25.81 Restless legs syndrome; Z79.899 Other long term (current) drug therapy; Z79.82 Long term (current) use of aspirin; Z99.81 Dependence on supplemental oxygen; Z86.73 Personal history of transient ischemic attack (TIA), and cerebral infarction without residual deficits; Z96.651 Presence of right artificial knee joint; Z96.642 Presence of left artificial hip joint
CPT/HCPCS: 36415; 36430; 71046; 80048; 81001; 82728; 83540; 83550; 83735; 83880; 84484; 85025; 86140; 86850; 86900; 86901; 86920; 86922; 87804; 93005; 94640; 94760; 97161-GP; A9270-GY; G0328; J1940; J7050; J7620-GY; P9016

== ENCOUNTER 2017-08-12 09:18 | Inpatient (IN) | payer MEDICARE, BC ==
[2017-08-12] MEDS ORDERED: EYE EYEBOTH PRN (09:37)
[2017-08-12] MEDS ORDERED: PEG EYEBOTH PRN (09:37)
[2017-08-12] MEDS ORDERED: ALPRAZolam 0.25 MG Tab PO PRN (09:37)
[2017-08-12] MEDS ORDERED: PROPYLENE GLYCOL EYEBOTH PRN (09:37)
--- NOTE | 2017-08-12 09:43 | PCM.HP ---
H&P History of Present Illness - General Date of Service: 08/12/17 Admit Problem/Dx: Admission Diagnosis/Problem Admission Diagnosis/Problem Anemia Source of Information: Patient History Limitations: Reports: No Limitations - History of Present Illness Initial Comments - Free Text/Narative: Mrs. Gr is an 81 yo female who is admitted to swing bed following an acute admission for CHF exacerbation and severe anemia. Her shortness of breath improved with diuresis and transfusion of 2 units PRBC's. Her hemoglobin stabilized. Physical therapy did evaluate her at the end of last week and did recommend ongoing therapies. Therefore, today she was felt stable for dismissal from acute status and will be admitted under swing bed status instead. She is still having some shortness of breath but this is very near her baseline. She also has some cough that is also improving. No chest pain, fever, or chills. - Related Data Allergies/Adverse Reactions: Allergies Allergy/AdvReac Type Severity Reaction Status Date / Time codeine Allergy Hives Verified 08/12/17 09:27 lisinopril Allergy Bronchospas Verified 08/12/17 09:27 ms amoxicillin trihydrate AdvReac Nausea and Verified 08/12/17 09:27 [From Augmentin] Vomiting hydrocodone AdvReac Nausea and Verified 08/12/17 09:27 Vomiting potassium clavulanate AdvReac Nausea and Verified 08/12/17 09:27 [From Augmentin] Vomiting tramadol AdvReac Nausea and Verified 08/12/17 09:27 Vomiting Home Medications: Home Meds Acetaminophen [Acetaminophen Es] 1,000 mg PO BID 03/25/14 [History] Aspirin [Halfprin] 81 mg PO BEDTIME 03/25/14 [History] Bilberry Fruit Extract [Bilberry] 80 mg PO DAILY 03/25/14 [History] Calcium Carbonate [Calcium] 600 mg PO BID 03/25/14 [History] Carvedilol [Coreg] 3.125 mg PO BEDTIME 03/25/14 [History] Carvedilol [Coreg] 6.25 mg PO DAILY 03/25/14 [History] Cholecalciferol (Vitamin D3) [Vitamin D3] 1,000 units PO BEDTIME 03/25/14 [ History] Cranberry Extract [Cranberry] 300 mg PO DAILY 03/25/14 [History] Losartan [Cozaar] 100 mg PO DAILY 03/25/14 [History] Lutein 20 mg PO DAILY 03/25/14 [History] [place]-3 Fatty Acids [[place]-3] 1,000 mg PO DAILY 03/25/14 [History] Omeprazole [Prilosec] 20 mg PO DAILY 03/25/14 [History] Pramipexole [Mirapex] 0.125 mg PO DAILY@1000 03/25/14 [History] Pramipexole [Mirapex] 0.25 mg PO BEDTIME 03/25/14 [History] Vit C/Vit E Ac/Lut/Mineral 1 [Prosight with Lutein] 1 tab PO BID 03/25/14 [ History] atorvaSTATin [Lipitor] 10 mg PO BEDTIME 03/25/14 [History] busPIRone HCl [Buspirone HCl] 22.5 mg PO BID 03/25/14 [History] ALPRAZolam [Alprazolam] 0.25 mg PO Q12H PRN 08/09/17 [History] Biotin 5 mg PO DAILY 08/09/17 [History] Citalopram [Celexa] 40 mg PO DAILY 08/09/17 [History] Cranberry Extract/Vit C [Azo Cranberry Softgel] 1 cap PO DAILY 08/09/17 [History ] Levothyroxine [Synthroid] 50 mcg PO DAILY 08/09/17 [History] Magnesium Citrate 100 mg PO DAILY 08/09/17 [History] Propylene Glycol/Peg 400 [Systane 0.3-0.4% Eye Drops] 1 drop EYEBOTH Q4H PRN 11/21 [History] Albuterol [IJD: Albuterol] 2.5 mg NEB Q4HRRT PRN nebule 08/12/17 [Rx] Ferrous Sulfate 325 mg PO DAILY tablet 08/12/17 [Rx] Furosemide [Lasix] 40 mg PO BIDDIURETIC tablet 08/12/17 [Rx] Oxymetazoline [Afrin Original 0.05% Nasal [place]] 0 ml ERWIN BEDTIME bottle [Rx] Potassium Chloride [Klor-Con 10] 10 meq PO DAILY tab.er 08/12/17 [Rx] Past Medical History HEENT History: Reports: Macular Degeneration Cardiovascular History: Reports: Heart Failure, Heart Murmur, High Cholesterol, Hypertension, Pulmonary Hypertension Respiratory History: Reports: COPD, Sleep Apnea, SOB Gastrointestinal History: Reports: GERD Genitourinary History: Reports: None Musculoskeletal History: Reports: Arthritis, Back Pain, Chronic Other Neuro History: essential tremor. RLS Psychiatric History: Reports: Anxiety Endocrine/Metabolic History: Reports: Obesity/BMI 30+ Hematologic History: Reports: Anemia Immunologic History: Reports: None Oncologic (Cancer) History: Reports: None Dermatologic History: Reports: None - Past Surgical History HEENT Surgical History: Reports: Adenoidectomy, Cataract Surgery, Tonsillectomy GI Surgical History: Reports: Appendectomy Female Surgical History: Reports: Hysterectomy, Other (See Below) Other Female Surgeries/Procedures: bladder surgery Musculoskeletal Surgical History: Reports: Hip Replacement, Joint Replacement, Knee Replacement Social & Family History - Family History Cardiac: Reports: Heart Failure, [place] Respiratory: Reports: Other (See Below) Other Respiratory Family Hisory: breathing problem has had pneumonia Oncologic: Reports: Other (See Below) Other Oncologic Family History: stomach - Tobacco Use Smoking Status *Q: Never Smoker Second Hand Smoke Exposure: No - Caffeine Use Caffeine Use: Reports: None - Alcohol Use Alcohol Use History: No Days Per Week of Alcohol Use: 7 Number of Drinks Per Day: 1 Total Drinks Per Week: 7 Alcohol Use in Last Twelve Months: Yes Alcohol Use Frequency: Socially - Recreational Drug Use Recreational Drug Use: No - Living Situation & Occupation Living situation: Reports: , Alone H&P Review of Systems - Review of Systems: Review Of Systems: See Below General: Reports: No Symptoms HEENT: Reports: No Symptoms Pulmonary: Reports: Shortness of Breath, Cough Cardiovascular: Reports: No Symptoms Gastrointestinal: Reports: No Symptoms Genitourinary: Reports: No Symptoms Musculoskeletal: Reports: No Symptoms Skin: Reports: No Symptoms Neurological: Reports: No Symptoms Exam - Exam Exam: See Below - Exam General: Alert, Oriented, Cooperative HEENT: Conjunctiva Clear, Mucosa Moist & Braden Neck: Supple, Trachea Midline. No: Lymphadenopathy, Thyromegaly Lungs: Normal Respiratory Effort, Crackles (at the bases bilaterally) Cardiovascular: Regular Rate, Regular Rhythm, Normal S1, Normal S2, Systolic Murmur GI/Abdominal Exam: Soft, Non-Tender, No Organomegaly, No Distention, No Mass Extremities: Non-Tender, No Pedal Edema, Normal Capillary Refill Peripheral Pulses: 2+: Radial (L), Radial (R), Posterior Tibial (L), Posterior Tibial (R) Skin: Warm, Dry, Intact Neurological: No: Focal Deficit *Q Meaningful Use (ADM) - VTE *Q VTE Criteria *Q: VTE Anticoagulation Contraindications: Med/TX Not Indicated/Need - Stroke *Q Stroke Criteria *Q: - AMI *Q AMI Criteria *Q: - Problem List (1) Generalized weakness SNOMED Code(s): 11095017 ICD Code: R53.1 - WEAKNESS Status: Acute Problem Details: - Patient admitted for rehabilitation following acute admission. - PT/OT consults. (2) Anemia SNOMED Code(s): 491213405 ICD Code: D64.9 - ANEMIA, UNSPECIFIED Status: Acute Problem Details: - Hgb stable over the past 48 hours. - Hemoccult negative. - Iron studies show iron deficiency vs. chronic disease anemia. Continue iron supplementation. - Can likely delay recheck for a couple of days. - She will need further work-up of this as an outpatient. Qualifiers: Anemia type: iron deficiency Iron deficiency anemia type: unspecified iron deficiency Qualified Code(s): D50.9 - Iron deficiency anemia, unspecified (3) Diastolic CHF, acute on chronic SNOMED Code(s): 348076096 ICD Code: I50.33 - ACUTE ON CHRONIC DIASTOLIC (CONGESTIVE) HEART FAILURE Status: Acute Problem Details: - Symptoms continue to improve and she is near her baseline. Weight is stable today. BNP is also down today. - She did have a few runs of ventricular tachycardia last night but was asymptomatic. - As further cardiology evaluation and follow-up are already planned as an outpatient, can defer further evaluation to that time as well. This is not likely to be an acute problem and can be deferred to outpatient work up unless she becomes symptomatic. - Oxygen requirements continue to decrease. Will wean as able. (4) Hypokalemia SNOMED Code(s): 68591241 ICD Code: E87.6 - HYPOKALEMIA Status: Acute Problem Details: - Diuresis during acute admission complicated by hypokalemia. - K is gradually trending up with PO supplementation. - Continue PO supplementation. (5) Anxiety SNOMED Code(s): 22350117 ICD Code: F41.9 - ANXIETY DISORDER, UNSPECIFIED Status: Chronic Problem Details: - Doing well from this regard. - Home medications continued. (6) Aortic stenosis, moderate SNOMED Code(s): 56325712 ICD Code: I35.0 - NONRHEUMATIC AORTIC (VALVE) STENOSIS Status: Chronic Problem Details: - ECHO Jun 2017, stable, EF 60% - See otherwise under CHF above. (7) GERD (gastroesophageal reflux disease) SNOMED Code(s): 015140508 ICD Code: K21.9 - GASTRO-ESOPHAGEAL REFLUX DISEASE WITHOUT ESOPHAGITIS Status: Chronic Problem Details: - Home medications continued. Qualifiers: Esophagitis presence: esophagitis presence not specified Qualified Code(s) : K21.9 - Gastro-esophageal reflux disease without esophagitis (8) Hypertension, benign SNOMED Code(s): 76609531 ICD Code: I10 - ESSENTIAL (PRIMARY) HYPERTENSION Status: Chronic Problem Details: - BP's have been acceptable this admission. - Home medications continued with the exception of her amlodipine, which is held. Will continue to hold this in light of acceptable BP readings. (9) Hypothyroidism SNOMED Code(s): 29915434 ICD Code: E03.9 - HYPOTHYROIDISM, UNSPECIFIED Status: Chronic Problem Details: - Home medications continued. Qualifiers: Hypothyroidism type: acquired Qualified Code(s): E03.9 - Hypothyroidism, unspecified (10) Mitral valve stenosis SNOMED Code(s): 66057143 ICD Code: I05.0 - RHEUMATIC MITRAL STENOSIS Status: Chronic Problem Details: - Had Echo follow-up 2 months ago. - Home medications continued. Qualifiers: Cardiac valve disease etiology: nonrheumatic Qualified Code(s): I34.2 - Nonrheumatic mitral (valve) stenosis (11) NELLIE (obstructive sleep apnea) SNOMED Code(s): 45632044 ICD Code: G47.33 - OBSTRUCTIVE SLEEP APNEA (ADULT) (PEDIATRIC) Status: Chronic Problem Details: - Does not wear a CPAP at home. - Continue nocturnal oxygen. (12) Pulmonary hypertension SNOMED Code(s): 73317670 ICD Code: I27.20 - PULMONARY HYPERTENSION, UNSPECIFIED Status: Chronic Problem Details: - ECHO Jun 2017, EF 60%, PAP 55. - Home medications continued. (13) RLS (restless legs syndrome) SNOMED Code(s): 95058752 ICD Code: G25.81 - RESTLESS LEGS SYNDROME Status: Chronic Problem Details : - Home medications continued. Problem List Initiated/Reviewed/Updated: Yes Orders Last 24hrs: Active Orders 24 hr Category Date Time Status Admission Status [Patient Status] [ADT] Routine ADT 08/12/17 09:31 Active Antiembolic Devices [RC] PER UNIT ROUTINE Care 08/12/17 09:35 Ordered Height and Weight [RC] DAILY Care 08/12/17 09:34 Ordered Notify Provider Vital Signs [RC] ASDIRECTED Care 08/12/17 09:35 Ordered Oxygen Therapy [RC] PRN Care 08/12/17 09:34 Ordered Up With Assistance [RC] ASDIRECTED Care 08/12/17 09:33 Ordered VTE/DVT Education [RC] PER UNIT ROUTINE Care 08/12/17 09:34 Ordered Vital Signs [RC] PER UNIT ROUTINE Care 08/12/17 09:34 Ordered OT Evaluation and Treatment [CONS] Routine Cons 08/12/17 09:33 Ordered PT Evaluation and Treatment [CONS] Routine Cons 08/12/17 09:33 Ordered Regular Diet [DIET] Diet 08/12/17 Lunch Ordered ALPRAZolam [Xanax] Med 08/12/17 09:37 Ordered 0.25 mg PO Q12H PRN Acetaminophen [Tylenol Extra Strength] Med 08/12/17 20:00 Ordered 1,000 mg PO BID Albuterol [Proventil Neb Soln] Med 08/12/17 09:37 Ordered 2.5 mg NEB Q4HRRT PRN Aspirin [Halfprin] Med 08/12/17 20:00 Ordered 81 mg PO BEDTIME Carvedilol [Coreg] Med 08/12/17 20:00 Ordered 3.125 mg PO BEDTIME Carvedilol [Coreg] Med 08/13/17 08:00 Ordered 6.25 mg PO DAILY Citalopram [Celexa] Med 08/13/17 08:00 Ordered 40 mg PO DAILY Ferrous Sulfate Med 08/13/17 08:00 Ordered 325 mg PO DAILY Furosemide [Lasix] Med 08/12/17 16:00 Ordered 40 mg PO BIDDIURETIC Levothyroxine [Synthroid] Med 08/13/17 08:00 Ordered 50 mcg PO DAILY Losartan [Cozaar] Med 08/13/17 08:00 Ordered 100 mg PO DAILY Magnesium Citrate [Magnesium Citrate] Med 08/13/17 08:00 Ordered 100 mg PO DAILY Omeprazole Med 08/13/17 08:00 Ordered 20 mg PO DAILY Oxymetazoline [Afrin Original 0.05% Nasal [place]] Med 08/12/17 20:00 Ordered 1 ml ERWIN BEDTIME Potassium Chloride [Klor-Con 10] Med 08/13/17 08:00 Ordered 10 meq PO DAILY Pramipexole [Mirapex] Med 08/13/17 08:00 Ordered 0.125 mg PO DAILY Pramipexole [Mirapex] Med 08/12/17 20:00 Ordered 0.25 mg PO BEDTIME Propylene Glycol/Peg 400 [Systane 0.3-0.4% Eye Drops] Med 08/12/17 09:37 Ordered 1 drop EYEBOTH Q4H PRN atorvaSTATin [Lipitor] Med 08/12/17 20:00 Ordered 10 mg PO BEDTIME busPIRone [Buspar] Med 08/12/17 20:00 Ordered 22.5 mg PO BID Anticoagulation Contraindications VTE [AST] Per Unit Oth 08/12/17 09:33 Ordered Routine Sequential Compression Device [OM.PC] Routine Oth 08/12/17 09:33 Ordered Resuscitation Status Routine Resus Stat 08/12/17 09:33 Ordered Medication Orders Acetaminophen (Tylenol Extra Strength) 1,000 mg PO BID FIDEL Albuterol (Proventil Neb Soln) 2.5 mg NEB Q4HRRT PRN PRN Reason: Cough Alprazolam (Xanax) 0.25 mg PO Q12H PRN PRN Reason: Anxiety Aspirin (Halfprin) 81 mg PO BEDTIME FIDEL Buspirone HCl (Buspar) 22.5 mg PO BID FIDEL Non-Formulary Medication (Atorvastatin [Lipitor]) 10 mg PO BEDTIME FIDEL Assessment/Plan Comment:: See details under problems above. Patient will be transitioned from acute to swing bed status today. All medications will be continued as during her acute stay. PT and OT consults for strengthening. She will have SCD's for VTE prophylaxis; no indication for pharmacologic prophylaxis given she is at her baseline functional status. Duration of swing bed stay to be determined by therapy. She desires to be full code. Dr. Carrillo to resume care in the morning.
[2017-08-12] MEDS ORDERED: Dextran 70/Hypromellose/PF Ophth Soln 0.9 ML UD EYEBOTH PRN (13:23)
[2017-08-12] MEDS ORDERED: Furosemide 40 MG Tab PO SCH (16:00)
[2017-08-12] MEDS ORDERED: Oxymetazoline 0.05% Nasal Spray 15 ML Bottle NAS SCH (20:00)
[2017-08-12] MEDS ORDERED: Pramipexole 0.125 MG Tab PO SCH (20:00)
[2017-08-12] MEDS ORDERED: Aspirin 81 MG Tab.EC PO SCH (20:00)
[2017-08-12] MEDS ORDERED: atorvaSTATin 10 MG Tab PO SCH (20:00)
[2017-08-12] MEDS ORDERED: Carvedilol 3.125 MG Tab PO SCH (20:00)
[2017-08-12] MEDS: Albuterol 0.083% 2.5 MG/3 ML Neb Soln NEB PRN (20:54)
[2017-08-12] MEDS: Acetaminophen 500 MG Tab PO SCH (20:55)
[2017-08-12] MEDS: busPIRone 15 MG Tab PO SCH (20:57)
[2017-08-13] MEDS: Albuterol 0.083% 2.5 MG/3 ML Neb Soln NEB PRN ×2 (04:30→09:12)
[2017-08-13] MEDS ORDERED: Levothyroxine 50 MCG Tab PO SCH ×2 (07:00→08:00)
[2017-08-13] MEDS ORDERED: Omeprazole 20 MG Cap.CR PO SCH ×2 (07:00→08:00)
[2017-08-13] MEDS ORDERED: Sodium Chloride 0.9% 10 ML Syringe FLUSH PRN (07:35)
[2017-08-13] MEDS ORDERED: Furosemide 20 MG/2 ML VIAL IV ONE (07:38)
[2017-08-13] MEDS: Acetaminophen 500 MG Tab PO SCH (07:55)
[2017-08-13] MEDS: busPIRone 15 MG Tab PO SCH (07:55)
[2017-08-13] MEDS ORDERED: Losartan 50 MG Tab PO SCH (08:00)
[2017-08-13] MEDS ORDERED: Carvedilol 3.125 MG Tab PO SCH (08:00)
[2017-08-13] MEDS ORDERED: Pramipexole 0.125 MG Tab PO SCH (08:00)
[2017-08-13] MEDS ORDERED: MAGNESIUM CITRATE 100 MG PO SCH (08:00)
[2017-08-13] MEDS ORDERED: Citalopram 20 MG Tab PO SCH (08:00)
[2017-08-13] MEDS ORDERED: Ferrous Sulfate 325 MG Tab PO SCH (08:00)
[2017-08-13] MEDS ORDERED: Potassium Chloride 10 MEQ Tab.ER PO SCH (08:00)
--- NOTE | 2017-08-13 10:10 | PN ---
Progress Note for KELLY STERN Date: 08/13/2017 Room #: VM.215 SUBJECTIVE: The patient had a maroon stool about 4:00 a.m. this morning, which was Hemoccult positive. She has had a previous stool the day before, which was Hemoccult negative. The patient was noted at the time to get very short of breath with respiratory rates up to 38. The patient denies any chest pain or abdominal pain. Right now, she says that she just sits. She is not short of breath, but if she moves, she becomes quite short of breath. OBJECTIVE: Vital Signs: Her weight is 97.2, pulse is 79, blood pressure is 153/100, respiratory rate had been up to 38, now it is down to 24. Her oxygen is 98% on 3 L. Skin: Pale, warm, and dry. She has some bruising on her left wrist. Heart: Regular rate and rhythm with 3/6 systolic ejection murmur. Lungs: Have diminished breath sounds on bases. Abdomen: Obese, soft. No guarding. No rebound. Lower Extremities: Obese. I do not appreciate edema. Her weight today is 97.2, which is up 0.6. LABORATORY DATA: Her hemoglobin today is 7.0, white blood cell count 7.1. IMPRESSION: 1. Continued GI bleed, suspect upper GI bleed. 2. Congestive heart failure exacerbation. 3. Left bundle-branch block. 4. Aortic stenosis. 5. Chronic anxiety disorder. PLAN: We did do an EKG, which shows sinus rhythm with left bundle-branch block. Chest x-ray was done, which showed still some right CHF, but improved. Hope to anticipate to send her to [place]. She needs further workup for her GI bleeding as well as probable transfusions, which we do not have that blood type here on hand. She does agree to go. She is code 1 status. GM08/13/2017 08:34:14 MODL: 08/13/2017 08:58:39 /[id number] MTDD
[2017-08-13 14:55] LABS: CHLORIDE,CL 106 mmol/L (98-107); SODIUM,NA 144 mmol/L (136-145)
[2017-08-14] MEDS ORDERED: Carvedilol 6.25 MG Tab PO SCH (08:00)
--- NOTE | 2017-08-14 08:02 | DISCH ---
Transferred to [place] and discharged to Swing Bed. So, she was admitted to swing bed on 08/12/2017, and she was sent on 08/13/2017. PRIMARY DIAGNOSIS: Gastrointestinal bleed. SECONDARY DIAGNOSES: 1. Profound anemia. 2. Exacerbation of congestive heart failure. 3. New left bundle-branch block. 4. Hypokalemia. 5. Hypomagnesemia. 6. Hypertension. 7. Chronic anxiety with acute exacerbation. 8. Aortic stenosis, moderate. 9. Hypoxemia 10. Chronic nocturnal hypoxemia. 11. Hypothyroidism. 12. Hypercholesterolemia. 13. Restless legs syndrome. 14. Iron deficiency anemia. SUMMARY OF ADMIT HISTORY AND PHYSICAL: The patient is an 81-year-old female, who presented to Acute Care on 08/09/2017 with profound anemia down to 5.6 with CHF. She was not taking her diuretics for two weeks and new left bundle-branch block. While on acute care, she received two units of packed RBCs, was diuresed with IV Lasix, improved, and stabilized. She had had one stool that was Hemoccult negative. She had serial troponins checked that were negative. Her proBNP was around 2000. She was felt stable to go on swing bed on 08/12/2017. SUMMARY OF HOSPITAL COURSE: While on swing bed, she had had a maroon stool earlier in the morning of 08/13/2017. At that time, her pulse went up to 40 or 38. She was short of breath with exertion, but with sitting, she was not short of breath. Chest x-ray was repeated, which showed stable right CHF, but much improved. EKG showed normal sinus rhythm with left bundle-branch block. Because of concern with continued GI bleeding, with hemoglobin now that had dropped down to 7.0 from 7.5 the day previously, it was felt that she needed a higher level of care with need for [facility], blood products on hand, as well as further evaluation of her heart. To note, the patient does have moderate aortic stenosis, and her last echocardiogram had just been in the fall of 2017. The patient is code level 1 status and would desire a higher level of care. The patient did have iron storage studies done, which did show a low percent iron, low iron level, normal TIBC level, and low normal ferritin level. MEDICATIONS: At the time of transfer, 1. Acetaminophen 500 mg two pills twice a day. 2. Alprazolam 0.25 mg one p.o. b.i.d. 3. Aspirin 81 mg one pill daily, but had been held. 4. Atorvastatin 10 mg one at bedtime. 5. BuSpar 15 mg 1-1/2 pill twice a day. 6. Carvedilol 3.125 mg two in the morning and one in the evening. 7. Citalopram 20 mg, take two pills daily. 8. Artificial tears one drop 4 times a day. 9. Ferrous sulfate 325 one pill daily, which is a new medication. 10.Furosemide 40 mg one p.o. b.i.d. 11.Levothyroxine 50 mcg one pill daily. 12.Losartan 100 mg one pill daily. 13.Omeprazole 20 mg one pill daily. 14.Afrin nasal spray at bedtime. 15.Potassium 10 mEq one pill daily. 16.Mirapex 0.125 mg two pills at bedtime and one pill in the morning. 17.Albuterol HFA two puffs q.4 hours p.r.n. 18.She was on amlodipine 5 mg one pill daily. 19.Bilberry 80 mg one pill daily. 20.Biotin 5 mg one pill daily. 21.Calcium carbonate 600 mg one p.o. b.i.d. 22.Vitamin D 1000 units one pill at bedtime. 23.Cranberry extract 300 mg one pill daily and cranberry with vitamin C one pill daily. 24.Lutein 20 mg one pill daily. 25.Mag citrate 100 mg one pill daily. 26.Multivitamin one pill daily. 27.Nystatin topical cream b.i.d. p.r.n. 28.[place] fatty acids 1000 mg one pill daily. 29.Systane eye drops one drop 4 times a day. 30.Multiple vitamins with minerals one pill twice a day. DISCHARGE PLAN: The patient will go by [facility] ground transport. She did have a saline lock started as well as she has oxygen on board. GM08/13/2017 08:48:49 MODL: 08/14/2017 06:01:41 /[id number] MTDKrystle
--- NOTE | 2017-08-15 08:03 | DISCH ---
To note, the patient's transfer to [place] was delayed due to bed availability, and so I did have lab work repeated in the afternoon at about 2 p.m. Her hemoglobin had stayed stable at 7.4. Sodium was 144, potassium 4.1, creatinine 0.8, BUN 18, and GFR greater than 60. Calcium was low at 8.0; however, she had low albumin as noted previously. ProBNP had gone up to 3747. The patient was opted to just have a saline lock left in as we did not want to risk worsening her heart failure. To note, her blood pressure stayed good at 144/103. Her respiratory rate was up to 26 and sats were 94 on 3 L. GM08/13/2017 15:21:15 MODL: 08/14/2017 11:55:04 /[id number]
== END 2017-08-13 14:35 | disposition short-term general hospital (02) | DRG 947 ==
LOC: VM.MS 09:31
PROVIDERS: ADMIT Family Medicine; ATTEND Family Medicine
DX: R53.1 Weakness (principal); I50.33 Acute on chronic diastolic (congestive) heart failure; K92.2 Gastrointestinal hemorrhage, unspecified; D50.9 Iron deficiency anemia, unspecified; F41.9 Anxiety disorder, unspecified; I35.0 Nonrheumatic aortic (valve) stenosis; K21.9 Gastro-esophageal reflux disease without esophagitis; I11.0 Hypertensive heart disease with heart failure; I05.0 Rheumatic mitral stenosis; E03.9 Hypothyroidism, unspecified; G47.33 Obstructive sleep apnea (adult) (pediatric); I27.20 Pulmonary hypertension, unspecified; G25.81 Restless legs syndrome; I44.7 Left bundle-branch block, unspecified; E87.6 Hypokalemia; E83.42 Hypomagnesemia; D64.9 Anemia, unspecified; Z88.8 Allergy status to other drugs, medicaments and biological substances; Z79.82 Long term (current) use of aspirin; Z79.899 Other long term (current) drug therapy; H35.30 Unspecified macular degeneration; E78.00 Pure hypercholesterolemia, unspecified
CPT/HCPCS: 36415; 71045; 80048; 82274; 83880; 85018; 85025; 93005; 94640; 94760; A9270-GY; J1940; J7050; J7620-GY

== ENCOUNTER 2017-09-05 18:22 | Observation (INO) | payer MEDICARE, BC ==
[2017-09-05] MEDS ORDERED: Pantoprazole 40 MG Vial IVPUSH ONE (19:58)
[2017-09-05] MEDS ORDERED: Ondansetron 4 MG/2 ML SDV IVPUSH ONE (19:58)
--- NOTE | 2017-09-05 21:05 | PCM.SN ---
- Free Text/Narrative Note: IV started note. Skull started on IV in a patient with numerous IV attempts. I arrived the patient was a hot pack to both arms. I placed a blood pressure cuff on the left upper arm and inflated to approximately 80 mmHg. I then look for veins was able to locate one in the left hand near the thumb. The area was prepped with ChloraPrep. He is a 22-gauge inpsych catheter and advanced until I got good blood return. At that point I advanced the catheter completely. I applied a saline lock And flushed with saline 10 mL. The flushed easily with no infiltration noted. Patient did have an initial bruising around the IV site with some hematoma but that did not further extend. Flushed again with an additional 10 mL of normal saline. The IV flushes easily. No signs of infiltration were noted. IV was secured with a semipermeable dressing and tape.
[2017-09-06] MEDS ORDERED: Enoxaparin 40 MG/0.4 ML Syringe SUBCUT SCH (00:30)
[2017-09-06] MEDS ORDERED: Dextran 70/Hypromellose/PF Ophth Soln 0.9 ML UD EYEBOTH PRN (01:09)
[2017-09-06] MEDS ORDERED: Albuterol 8 GM Inhaler INH PRN (01:09)
[2017-09-06] MEDS ORDERED: ALPRAZolam 0.25 MG Tab PO PRN (01:09)
--- NOTE | 2017-09-06 01:27 | EDM.PDOC ---
ED HPI GENERAL MEDICAL PROBLEM - General Chief Complaint: Abdominal Pain Stated Complaint: Abdominal pain, nausea Time Seen by Provider: 09/05/17 18:30 Source of Information: Reports: Patient History Limitations: Reports: No Limitations - History of Present Illness INITIAL COMMENTS - FREE TEXT/NARRATIVE: PtAdamaris presents to the ER with complaints of epigastric pain and fatigue. She was recently transferred to [facility] in [place] and diagnosed with erosive gastropathy and heart failure. She was also found to have a low hemoglobin (7.2 range) due to the gastropathy. She was started on Omeprazole as venofer. She received her venofer today. She states that she is continuing to experience some shortness of breath and fatigue. She states that she has been feeling poorly for approx. 24 hours, but admits that she doesn't feel well since being discharged. Onset: Today Onset Date: 09/05/17 Location: Reports: Abdomen Quality: Reports: Ache Severity: Moderate Epigastric Pain Score (Numeric/FACES): 4 - Related Data Allergies Allergy/AdvReac Type Severity Reaction Status Date / Time codeine Allergy Hives Verified 08/22/17 11:07 lisinopril Allergy Bronchospas Verified 08/22/17 11:07 ms amoxicillin trihydrate AdvReac Nausea and Verified 08/22/17 11:07 [From Augmentin] Vomiting hydrocodone AdvReac Nausea and Verified 08/22/17 11:07 Vomiting potassium clavulanate AdvReac Nausea and Verified 08/22/17 11:07 [From Augmentin] Vomiting tramadol AdvReac Nausea and Verified 08/22/17 11:07 Vomiting Home Meds: Home Meds Acetaminophen [Acetaminophen Es] 1,000 mg PO BID 03/25/14 [History] Bilberry Fruit Extract [Bilberry] 80 mg PO DAILY 03/25/14 [History] Calcium Carbonate [Calcium] 600 mg PO BID 03/25/14 [History] Carvedilol [Coreg] 3.125 mg PO BEDTIME 03/25/14 [History] Carvedilol [Coreg] 6.25 mg PO DAILY 03/25/14 [History] Cholecalciferol (Vitamin D3) [Vitamin D3] 1,000 units PO BEDTIME 03/25/14 [ History] Cranberry Extract [Cranberry] 300 mg PO DAILY 03/25/14 [History] Losartan [Cozaar] 100 mg PO DAILY 03/25/14 [History] Lutein 20 mg PO DAILY 03/25/14 [History] [place]-3 Fatty Acids [[place]-3] 1,000 mg PO DAILY 03/25/14 [History] Pramipexole [Mirapex] 0.125 mg PO DAILY@1000 03/25/14 [History] Pramipexole [Mirapex] 0.25 mg PO BEDTIME 03/25/14 [History] Vit C/Vit E Ac/Lut/Mineral 1 [Prosight with Lutein] 1 tab PO BID 03/25/14 [ History] busPIRone HCl [Buspirone HCl] 22.5 mg PO BID 03/25/14 [History] ALPRAZolam [Alprazolam] 0.25 mg PO Q12H PRN 08/09/17 [History] Biotin 5 mg PO DAILY 08/09/17 [History] Citalopram [Celexa] 40 mg PO DAILY 08/09/17 [History] Cranberry Extract/Vit C [Azo Cranberry Softgel] 1 cap PO DAILY 08/09/17 [History ] Levothyroxine [Synthroid] 50 mcg PO DAILY 08/09/17 [History] Magnesium Citrate 100 mg PO DAILY 08/09/17 [History] Propylene Glycol/Peg 400 [Systane 0.3-0.4% Eye Drops] 1 drop EYEBOTH Q4H PRN 11/21 [History] Albuterol [IJD: Albuterol HFA] 2 puff INH Q4H PRN 08/12/17 [History] Multivitamin [Multivitamins] 1 tab PO BID 08/12/17 [History] Nystatin/Triamcinolone Crm [Mycolog Crm] 1 applic TOP BID PRN 08/12/17 [History] amLODIPine [Norvasc] 5 mg PO DAILY 08/12/17 [History] atorvaSTATin [Lipitor] 10 mg PO BEDTIME 08/12/17 [History] Ferrous Sulfate 325 mg PO DAILY tablet 08/13/17 [Rx] Furosemide [Lasix] 40 mg PO BIDDIURETIC tablet 08/13/17 [Rx] Potassium Chloride [Klor-Con 10] 10 meq PO DAILY tab.er 08/13/17 [Rx] Omeprazole Magnesium 40 mg PO BID 09/06/17 [History] Past Medical History HEENT History: Reports: Macular Degeneration Cardiovascular History: Reports: Heart Failure, Heart Murmur, High Cholesterol, Hypertension, Pulmonary Hypertension Other Cardiovascular History: Heart failure Respiratory History: Reports: COPD, Sleep Apnea, SOB Gastrointestinal History: Reports: GERD Genitourinary History: Reports: None, Urinary Incontinence Musculoskeletal History: Reports: Arthritis, Back Pain, Chronic Other Neuro History: essential tremor. RLS Psychiatric History: Reports: Anxiety Endocrine/Metabolic History: Reports: Obesity/BMI 30+ Hematologic History: Reports: Anemia Immunologic History: Reports: None Oncologic (Cancer) History: Reports: None Dermatologic History: Reports: None - Infectious Disease History Infectious Disease History: Reports: Chicken Pox, Measles - Past Surgical History HEENT Surgical History: Reports: Adenoidectomy, Cataract Surgery, Tonsillectomy GI Surgical History: Reports: Appendectomy Female Surgical History: Reports: Hysterectomy, Other (See Below) Other Female Surgeries/Procedures: bladder surgery Musculoskeletal Surgical History: Reports: Hip Replacement, Joint Replacement, Knee Replacement Social & Family History - Family History Family Medical History: Noncontributory Cardiac: Reports: Heart Failure, [place] Respiratory: Reports: Other (See Below) Other Respiratory Family Hisory: breathing problem has had pneumonia Oncologic: Reports: Other (See Below) Other Oncologic Family History: stomach - Tobacco Use Smoking Status *Q: Never Smoker Second Hand Smoke Exposure: No - Caffeine Use Caffeine Use: Reports: Soda - Alcohol Use Days Per Week of Alcohol Use: 7 Number of Drinks Per Day: 1 Total Drinks Per Week: 7 - Recreational Drug Use Recreational Drug Use: No - Living Situation & Occupation Living situation: Reports: , Alone ED ROS GENERAL - Review of Systems Review Of Systems: See Below Constitutional: Reports: No Symptoms HEENT: Reports: No Symptoms Respiratory: Reports: No Symptoms Cardiovascular: Reports: No Symptoms Endocrine: Reports: No Symptoms GI/Abdominal: Reports: Abdominal Pain (epigastric pain), Nausea Musculoskeletal: Reports: No Symptoms Skin: Reports: No Symptoms Neurological: Reports: No Symptoms Psychiatric: Reports: No Symptoms Hematologic/Lymphatic: Reports: No Symptoms Immunologic: Reports: No Symptoms ED EXAM, GENERAL - Physical Exam Exam: See Below Exam Limited By: No Limitations General Appearance: Alert, WD/WN, No Apparent Distress Throat/Mouth: Normal Inspection, Normal Lips, Normal Teeth, Normal Gums, Normal Oropharynx, Normal Voice, No Airway Compromise Head: Atraumatic, Normocephalic Neck: Normal Inspection, Supple, Non-Tender, Full Range of Motion Respiratory/Chest: No Respiratory Distress, Lungs Clear, Normal Breath Sounds, No Accessory Muscle Use, Chest Non-Tender Cardiovascular: Normal Peripheral Pulses, Regular Rate, Rhythm, No Edema, No Gallop, No JVD, No Murmur, No Rub GI/Abdominal: Normal Bowel Sounds, Soft, Non-Tender, No Organomegaly, No Distention, No Abnormal Bruit, No Mass (Female) Exam: Deferred Rectal (Female) Exam: Deferred Back Exam: Normal Inspection, Full Range of Motion, NT Extremities: Normal Inspection, Normal Range of Motion, Non-Tender, Normal Capillary Refill, No Pedal Edema Neurological: Alert, Oriented, CN II-XII Intact, Normal Cognition, Normal Gait, Normal Reflexes, No Motor/Sensory Deficits Psychiatric: Normal Affect, Normal Mood Skin Exam: Warm, Dry, Intact, Normal Color, No Rash Lymphatic: No Adenopathy Course - Vital Signs Last Recorded V/S: Last Vital Signs Temp 36.8 C 09/05/17 22:52 Pulse 91 09/05/17 22:52 Resp 19 09/05/17 22:52 BP 141/60 H 09/05/17 22:52 Pulse Ox 93 L 09/05/17 22:52 - Orders/Labs/Meds Orders: Active Orders 24 hr Category Date Time Status EKG Documentation Completion [RC] STAT Care 09/05/17 18:31 Active Abdomen Series w Chest 1V [CR] Stat Exams 09/05/17 18:48 Taken Sodium Chloride 0.9% [Saline Flush] Med 09/05/17 19:57 Active 10 ml FLUSH ASDIRECTED PRN Peripheral IV Insertion Adult [OM.PC] Routine Oth 09/05/17 19:57 Ordered Medication Orders Acetaminophen (Tylenol Extra Strength) 1,000 mg PO BID [facility]IDEL Albuterol (Ventolin Hfa) gm INH Q4H PRN PRN Reason: Cough Alprazolam (Xanax) 0.25 mg PO Q12H PRN PRN Reason: Anxiety Amlodipine Besylate (Norvasc) 5 mg PO DAILY [facility]EL Atorvastatin Calcium (Lipitor) 10 mg PO BEDTIME [facility]EL Buspirone HCl (Buspar) 22.5 mg PO BID [facility]EL Carvedilol (Coreg) 3.125 mg PO BEDTIME [facility]IDEL Carvedilol (Coreg) 6.25 mg PO DAILY [facility] Citalopram Hydrobromide (Celexa) 40 mg PO DAILY [facility] Enoxaparin Sodium (Lovenox) 40 mg SUBCUT DAILY@2100 [facility] Last Admin: 09/06/17 01:08 Dose: Not Given Ferrous Sulfate (Ferrous Sulfate) 325 mg PO DAILY [facility]EL Furosemide (Lasix) 40 mg PO BIDDIURETIC [facility] Levothyroxine Sodium (Synthroid) 50 mcg PO DAILY [facility]EL Non-Formulary Medication (Bilberry Fruit Extract [Bilberry]) 80 mg PO DAILY [facility]EL Non-Formulary Medication (Biotin [Biotin]) 5 mg PO DAILY [facility]IDEL Non-Formulary Medication (Calcium Carbonate) 600 mg PO BID FIDEL Non-Formulary Medication (Cholecalciferol (Vitamin D3) [Vitamin D3]) 1,000 units PO BEDTIME FIDEL Non-Formulary Medication (Cranberry Extract [Cranberry]) 300 mg PO DAILY [facility]EL Non-Formulary Medication (Cranberry Extract/Vit C [Azo Cranberry Softgel]) 1 cap PO DAILY FIDEL Non-Formulary Medication (Losartan [Cozaar]) 100 mg PO DAILY [facility]IDEL Non-Formulary Medication (Lutein [Lutein]) 20 mg PO DAILY FIDEL Non-Formulary Medication (Magnesium Citrate [Magnesium Citrate]) 100 mg PO DAILY FIDEL Non-Formulary Medication (Multivitamin [Multivitamins]) 1 tab PO BID FIDEL Non-Formulary Medication ([place]-3 Fatty Acids [[place]-3]) 1,000 mg PO DAILY FIDEL Non-Formulary Medication (Propylene Glycol/Peg 400 [Systane 0.3-0.4% Eye Drops] ) 1 drop EYEBOTH Q4H PRN PRN Reason: Dry Eyes Non-Formulary Medication (Vit C/Vit E Ac/Lut/Mineral 1 [Prosight With Lutein]) 1 tab PO BID FIDEL Pantoprazole Sodium (Protonix Iv) 40 mg IVPUSH Q12H [facility]IDEL Potassium Chloride (Klor-Con 10) 10 meq PO DAILY FIDEL Pramipexole Dihydrochloride (Mirapex) 0.25 mg PO BEDTIME FIDEL Pramipexole Dihydrochloride (Mirapex) 0.125 mg PO DAILY@1000 FIDEL Sodium Chloride (Saline Flush) 10 ml FLUSH ASDIRECTED PRN PRN Reason: Keep Vein Open Labs: Laboratory Tests 09/05/17 09/05/17 09/05/17 Range/Units 18:45 18:45 18:45 WBC 5.4 (4.0-10.0) x10^3/uL RBC 2.60 L (4.00-5.50) x10^6/uL Hgb 7.3 L* (12.0-16.0) g/dL Hct 25.3 L (33.0-47.0) % MCV 97.3 H D (78.0-93.0) fL MCH 28.1 (26.0-32.0) pg MCHC 28.9 L (32.0-36.0) g/dL RDW Coeff of Don 21.6 H (10.0-15.0) % Plt Count 121 L D (130-400) x10^3/uL Neut % (Auto) 88.9 H (50.0-80.0) % Lymph % (Auto) 7.3 L (25.0-50.0) % [place] % (Auto) 3.0 (2.0-11.0) % Eos % (Auto) 0.6 (0.0-4.0) % Baso % (Auto) 0.2 (0.2-1.2) % PT 9.9 (9.8-11.8) SEC INR 0.9 L (2.0-3.5) Sodium (136-145) mmol/L Potassium (3.5-5.1) mmol/L Chloride (98-107) mmol/L Carbon Dioxide (21-32) mmol/L BUN (7-18) mg/dL Creatinine (0.55-1.02) mg/dL Est Cr Clr Drug Dosing mL/min Estimated GFR (MDRD) Glucose (74-106) mg/dL Lactic Acid (0.4-2.0) mmol/L Calcium (8.5-10.1) mg/dL Corrected Calcium (8.5-10.1) mg/dL Total Bilirubin (0.2-1.0) mg/dL AST (15-37) U/L ALT (14-59) U/L Alkaline Phosphatase (46-116) U/L Troponin I 0.097 H* (<=0.056) ng/mL C-Reactive Protein 0.7 (<=0.9) mg/dL NT-Pro-B Natriuret Pep (<=450) pg/mL Total Protein (6.4-8.2) g/dL Albumin (3.4-5.0) g/dL Globulin Albumin/Globulin Ratio Stool Occult Blood (NEGATIVE) 09/05/17 09/05/17 09/05/17 Range/Units 18:45 18:45 18:45 WBC (4.0-10.0) x10^3/uL RBC (4.00-5.50) x10^6/uL Hgb (12.0-16.0) g/dL Hct (33.0-47.0) % MCV (78.0-93.0) fL MCH (26.0-32.0) pg MCHC (32.0-36.0) g/dL RDW Coeff of Don (10.0-15.0) % Plt Count (130-400) x10^3/uL Neut % (Auto) (50.0-80.0) % Lymph % (Auto) (25.0-50.0) % [place] % (Auto) (2.0-11.0) % Eos % (Auto) (0.0-4.0) % Baso % (Auto) (0.2-1.2) % PT (9.8-11.8) SEC INR (2.0-3.5) Sodium 140 (136-145) mmol/L Potassium 4.0 (3.5-5.1) mmol/L Chloride 103 (98-107) mmol/L Carbon Dioxide 25 (21-32) mmol/L BUN 20 H (7-18) mg/dL Creatinine 0.9 (0.55-1.02) mg/dL Est Cr Clr Drug Dosing 34.02 mL/min Estimated GFR (MDRD) 60 Glucose 157 H (74-106) mg/dL Lactic Acid 1.0 (0.4-2.0) mmol/L Calcium 8.4 L (8.5-10.1) mg/dL Corrected Calcium 8.96 (8.5-10.1) mg/dL Total Bilirubin 0.4 (0.2-1.0) mg/dL AST 27 (15-37) U/L ALT 23 (14-59) U/L Alkaline Phosphatase 97 (46-116) U/L Troponin I (<=0.056) ng/mL C-Reactive Protein (<=0.9) mg/dL NT-Pro-B Natriuret Pep 2710 H (<=450) pg/mL Total Protein 6.3 L (6.4-8.2) g/dL Albumin 3.3 L (3.4-5.0) g/dL Globulin 3.0 Albumin/Globulin Ratio 1.10 Stool Occult Blood (NEGATIVE) 09/05/17 Range/Units 20:00 WBC (4.0-10.0) x10^3/uL RBC (4.00-5.50) x10^6/uL Hgb (12.0-16.0) g/dL Hct (33.0-47.0) % MCV (78.0-93.0) fL MCH (26.0-32.0) pg MCHC (32.0-36.0) g/dL RDW Coeff of Don (10.0-15.0) % Plt Count (130-400) x10^3/uL Neut % (Auto) (50.0-80.0) % Lymph % (Auto) (25.0-50.0) % [place] % (Auto) (2.0-11.0) % Eos % (Auto) (0.0-4.0) % Baso % (Auto) (0.2-1.2) % PT (9.8-11.8) SEC INR (2.0-3.5) Sodium (136-145) mmol/L Potassium (3.5-5.1) mmol/L Chloride (98-107) mmol/L Carbon Dioxide (21-32) mmol/L BUN (7-18) mg/dL Creatinine (0.55-1.02) mg/dL Est Cr Clr Drug Dosing mL/min Estimated GFR (MDRD) Glucose (74-106) mg/dL Lactic Acid (0.4-2.0) mmol/L Calcium (8.5-10.1) mg/dL Corrected Calcium (8.5-10.1) mg/dL Total Bilirubin (0.2-1.0) mg/dL AST (15-37) U/L ALT (14-59) U/L Alkaline Phosphatase (46-116) U/L Troponin I (<=0.056) ng/mL C-Reactive Protein (<=0.9) mg/dL NT-Pro-B Natriuret Pep (<=450) pg/mL Total Protein (6.4-8.2) g/dL Albumin (3.4-5.0) g/dL Globulin Albumin/Globulin Ratio Stool Occult Blood Negative (NEGATIVE) Meds: Medications Generic Name Dose Route Start Last Admin Trade Name Freq PRN Reason Stop Dose Admin Acetaminophen 1,000 mg 09/06/17 08:00 Tylenol Extra Strength PO BID FIDEL Albuterol gm 09/06/17 01:09 Ventolin Hfa INH Q4H PRN Cough Alprazolam 0.25 mg 09/06/17 01:09 Xanax PO Q12H PRN Anxiety Amlodipine Besylate 5 mg 09/06/17 08:00 Norvasc PO DAILY [facility] Atorvastatin Calcium 10 mg 09/06/17 20:00 Lipitor PO BEDTIME [facility] Buspirone HCl 22.5 mg 09/06/17 08:00 Buspar PO BID [facility] Carvedilol 3.125 mg 09/06/17 20:00 Coreg PO BEDTIME [facility] Carvedilol 6.25 mg 09/06/17 08:00 Coreg PO DAILY [facility] Citalopram Hydrobromide 40 mg 09/06/17 08:00 Celexa PO DAILY [facility] Enoxaparin Sodium 40 mg 09/06/17 00:30 09/06/17 01:08 Lovenox SUBCUT Not Given DAILY@2100 [facility] Ferrous Sulfate 325 mg 09/06/17 08:00 Ferrous Sulfate PO DAILY FIDEL Furosemide 40 mg 09/06/17 08:00 Lasix PO BIDDIURETIC [facility] Levothyroxine Sodium 50 mcg 09/06/17 08:00 Synthroid PO DAILY FIDEL Non-Formulary Medication 80 mg 09/06/17 08:00 Bilberry Fruit Extract [Bilberry] PO DAILY FIDEL Non-Formulary Medication 5 mg 09/06/17 08:00 Biotin [Biotin] PO DAILY FIDEL Non-Formulary Medication 600 mg 09/06/17 08:00 Calcium Carbonate PO BID FIDEL Non-Formulary Medication 1,000 units 09/06/17 20:00 Cholecalciferol (Vitamin D3) [Vitamin D3] PO BEDTIME FIDEL Non-Formulary Medication 300 mg 09/06/17 08:00 Cranberry Extract [Cranberry] PO DAILY FIDEL Non-Formulary Medication 1 cap 09/06/17 08:00 Cranberry Extract/Vit C [Azo Cranberry Softgel] PO DAILY FIDEL Non-Formulary Medication 100 mg 09/06/17 08:00 Losartan [Cozaar] PO DAILY FIDEL Non-Formulary Medication 20 mg 09/06/17 08:00 Lutein [Lutein] PO DAILY FIDEL Non-Formulary Medication 100 mg 09/06/17 08:00 Magnesium Citrate [Magnesium Citrate] PO DAILY FDIEL Non-Formulary Medication 1 tab 09/06/17 08:00 Multivitamin [Multivitamins] PO BID FIDEL Non-Formulary Medication 1,000 mg 09/06/17 08:00 [place]-3 Fatty Acids [[place]-3] PO DAILY FIDEL Non-Formulary Medication 1 drop 09/06/17 01:09 Propylene Glycol/Peg 400 [Systane 0.3-0.4% Eye Drops] EYEBOTH Q4H PRN Dry Eyes Non-Formulary Medication 1 tab 09/06/17 08:00 Vit C/Vit E Ac/Lut/Mineral 1 [Prosight With Lutein] PO BID FIDEL Pantoprazole Sodium 40 mg 09/06/17 08:00 Protonix Iv IVPUSH Q12H [facility]IDEL Potassium Chloride 10 meq 09/06/17 08:00 Klor-Con 10 PO DAILY FIDEL Pramipexole Dihydrochloride 0.25 mg 09/06/17 20:00 Mirapex PO BEDTIME [facility]EL Pramipexole Dihydrochloride 0.125 mg 09/06/17 10:00 Mirapex PO DAILY@1000 [facility]IDEL Sodium Chloride 10 ml 09/05/17 19:57 Saline Flush FLUSH ASDIRECTED PRN Keep Vein Open Discontinued Medications Generic Name Dose Route Start Last Admin Trade Name Freq PRN Reason Stop Dose Admin Ondansetron HCl 4 mg 09/05/17 19:58 09/05/17 20:56 Zofran IVPUSH 09/05/17 19:59 4 mg ONETIME ONE Administration Pantoprazole Sodium 40 mg 09/05/17 19:58 09/05/17 21:01 Protonix Iv IVPUSH 09/05/17 19:59 40 mg ONETIME ONE Administration Departure - Departure Time of Disposition: 21:45 Disposition: Refer to Observation Clinical Impression: Erosive gastropathy - Discharge Information - My Orders Last 24 Hours: My Active Orders 09/05/17 18:31 EKG Documentation Completion [RC] STAT 09/05/17 18:48 Abdomen Series w Chest 1V [CR] Stat 09/05/17 19:57 Sodium Chloride 0.9% [Saline Flush] 10 ml FLUSH ASDIRECTED PRN Peripheral IV Insertion Adult [OM.PC] Routine - Assessment/Plan Last 24 Hours: My Active Orders 09/05/17 18:31 EKG Documentation Completion [RC] STAT 09/05/17 18:48 Abdomen Series w Chest 1V [CR] Stat 09/05/17 19:57 Sodium Chloride 0.9% [Saline Flush] 10 ml FLUSH ASDIRECTED PRN Peripheral IV Insertion Adult [OM.PC] Routine
[2017-09-06] MEDS ORDERED: Ondansetron 4 MG/2 ML SDV IVPUSH ONE (02:11)
[2017-09-06] MEDS: Sodium Chloride 0.9% 10 ML Syringe FLUSH PRN ×2 (02:22→07:44)
[2017-09-06 07:57] LABS: CHLORIDE,CL 106 mmol/L (98-107); SODIUM,NA 144 mmol/L (136-145)
[2017-09-06] MEDS ORDERED: Furosemide 40 MG Tab PO SCH (08:00)
[2017-09-06] MEDS ORDERED: Levothyroxine 50 MCG Tab PO SCH (08:00)
[2017-09-06] MEDS ORDERED: Carvedilol 3.125 MG Tab PO SCH ×2 (08:00→20:00)
[2017-09-06] MEDS ORDERED: BILBERRY FRUIT EXTRACT PO SCH (08:00)
[2017-09-06] MEDS ORDERED: Acetaminophen 500 MG Tab PO SCH (08:00)
[2017-09-06] MEDS ORDERED: Fish Oil/Omega-3 Fatty Acids 1 Gm Cap PO SCH (08:00)
[2017-09-06] MEDS ORDERED: Non-Formulary Medication 1 Each (Magnesium Citrate [Magnesium Citrate] 100 MG) PO SCH (08:00)
[2017-09-06] MEDS ORDERED: Multivitamin, Stress Formula with Zinc Tab PO SCH (08:00)
[2017-09-06] MEDS ORDERED: amLODIPine 5 MG Tab PO SCH (08:00)
[2017-09-06] MEDS ORDERED: CRANBERRY EXTRACT 300 MG PO SCH (08:00)
[2017-09-06] MEDS ORDERED: Non-Formulary Medication 1 Each (Biotin [Biotin] 5 MG) PO SCH (08:00)
[2017-09-06] MEDS ORDERED: Calcium Carbonate 750 MG Tab.Chew PO SCH (08:00)
[2017-09-06] MEDS ORDERED: [UNRECOGNIZED DRUG - OTHER] PO SCH (08:00)
[2017-09-06] MEDS ORDERED: MINERAL PO SCH (08:00)
[2017-09-06] MEDS ORDERED: Ferrous Sulfate 325 MG Tab PO SCH (08:00)
[2017-09-06] MEDS ORDERED: LUT PO SCH (08:00)
[2017-09-06] MEDS ORDERED: CRANBERRY EXTRACT PO SCH (08:00)
[2017-09-06] MEDS ORDERED: Losartan 50 MG Tab PO SCH (08:00)
[2017-09-06] MEDS ORDERED: VIT E AC PO SCH (08:00)
[2017-09-06] MEDS ORDERED: busPIRone 15 MG Tab PO SCH (08:00)
[2017-09-06] MEDS ORDERED: Pantoprazole 40 MG Vial IVPUSH SCH (08:00)
[2017-09-06] MEDS ORDERED: Potassium Chloride 10 MEQ Tab.ER PO SCH (08:00)
[2017-09-06] MEDS ORDERED: VIT C PO SCH ×2 (08:00)
[2017-09-06] MEDS ORDERED: Citalopram 20 MG Tab PO SCH (08:00)
[2017-09-06] MEDS ORDERED: LUTEIN PO SCH (08:00)
[2017-09-06] MEDS ORDERED: Non-Formulary Medication 1 Each (Lutein [Lutein] 20 MG) PO SCH (08:00)
[2017-09-06] MEDS ORDERED: Furosemide 40 MG/4 ML VIAL IV ONE (08:44)
[2017-09-06] MEDS ORDERED: Pramipexole 0.125 MG Tab PO SCH ×2 (10:00→20:00)
[2017-09-06] MEDS ORDERED: Ondansetron 4 MG/2 ML SDV IVPUSH PRN (11:15)
[2017-09-06] MEDS ORDERED: GI Cocktail Oral Solution 30 ML PO ONE (12:13)
[2017-09-06] MEDS ORDERED: Iopamidol 612 MG/ML 100 ML Bottle IVPUSH ONE (12:20)
--- NOTE | 2017-09-06 14:19 | PCM.DCSUM1 ---
Discharge Summary - Discharge Data Discharge Date: 09/06/17 Discharge Disposition: DC/Tfer to Acute Hospital 02 Condition: Stable - Discharge Diagnosis/Problem(s) (1) Erosive gastropathy SNOMED Code(s): 736473597 ICD Code: K31.89 - OTHER DISEASES OF STOMACH AND DUODENUM Status: Acute Priority: Low Current Visit: Yes (2) Diastolic CHF, acute on chronic SNOMED Code(s): 679889457 ICD Code: I50.33 - ACUTE ON CHRONIC DIASTOLIC (CONGESTIVE) HEART FAILURE Status: Acute Priority: Low Current Visit: No - Patient Summary/Data Hospital Course: Patient admitted last night after complaints of SOB. Labs showed a slight elevation to her troponin level and anemia with a HGB of 7.3. BNP also elevated. Was admitted for observation. This AM developed worsening anemia with HGb of 6.3 Troponin level did trend minimally upwards. One unit PRBC's transfused and report called [place] for transfer. - Discharge Plan Home Medications: Home Meds Acetaminophen [Acetaminophen Es] 1,000 mg PO BID 03/25/14 [History] Bilberry Fruit Extract [Bilberry] 80 mg PO DAILY 03/25/14 [History] Calcium Carbonate [Calcium] 600 mg PO BID 03/25/14 [History] Carvedilol [Coreg] 3.125 mg PO BEDTIME 03/25/14 [History] Carvedilol [Coreg] 6.25 mg PO DAILY 03/25/14 [History] Cholecalciferol (Vitamin D3) [Vitamin D3] 1,000 units PO BEDTIME 03/25/14 [ History] Cranberry Extract [Cranberry] 300 mg PO DAILY 03/25/14 [History] Losartan [Cozaar] 100 mg PO DAILY 03/25/14 [History] Lutein 20 mg PO DAILY 03/25/14 [History] [place]-3 Fatty Acids [[place]-3] 1,000 mg PO DAILY 03/25/14 [History] Pramipexole [Mirapex] 0.125 mg PO DAILY@1000 03/25/14 [History] Pramipexole [Mirapex] 0.25 mg PO BEDTIME 03/25/14 [History] Vit C/Vit E Ac/Lut/Mineral 1 [Prosight with Lutein] 1 tab PO BID 03/25/14 [ History] busPIRone HCl [Buspirone HCl] 22.5 mg PO BID 03/25/14 [History] ALPRAZolam [Alprazolam] 0.25 mg PO Q12H PRN 08/09/17 [History] Biotin 5 mg PO DAILY 08/09/17 [History] Citalopram [Celexa] 40 mg PO DAILY 08/09/17 [History] Cranberry Extract/Vit C [Azo Cranberry Softgel] 1 cap PO DAILY 08/09/17 [History ] Levothyroxine [Synthroid] 50 mcg PO DAILY 08/09/17 [History] Magnesium Citrate 100 mg PO DAILY 08/09/17 [History] Propylene Glycol/Peg 400 [Systane 0.3-0.4% Eye Drops] 1 drop EYEBOTH Q4H PRN 11/21 [History] Albuterol [IJD: Albuterol HFA] 2 puff INH Q4H PRN 08/12/17 [History] Multivitamin [Multivitamins] 1 tab PO BID 08/12/17 [History] Nystatin/Triamcinolone Crm [Mycolog Crm] 1 applic TOP BID PRN 08/12/17 [History] amLODIPine [Norvasc] 5 mg PO DAILY 08/12/17 [History] atorvaSTATin [Lipitor] 10 mg PO BEDTIME 08/12/17 [History] Ferrous Sulfate 325 mg PO DAILY tablet 08/13/17 [Rx] Furosemide [Lasix] 40 mg PO BIDDIURETIC tablet 08/13/17 [Rx] Potassium Chloride [Klor-Con 10] 10 meq PO DAILY tab.er 08/13/17 [Rx] Omeprazole Magnesium 40 mg PO BID 09/06/17 [History] Forms: ED Department Discharge, Interfacility Transfer EMTALA Referrals: Violeta Carrillo MD [Primary Care Provider] - - General Info Date of Service: 09/06/17 Admission Dx/Problem (Free Text: Anemia Acute on chronic diastolic heart failure Troponin elevation. Functional Status: Reports: Pain Controlled - Review of Systems General: Reports: No Symptoms HEENT: Reports: No Symptoms Pulmonary: Reports: Shortness of Breath Cardiovascular: Reports: No Symptoms Gastrointestinal: Reports: Abdominal Pain Genitourinary: Reports: No Symptoms Musculoskeletal: Reports: No Symptoms Skin: Reports: No Symptoms Neurological: Reports: No Symptoms Psychiatric: Reports: No Symptoms - Patient Data Vitals - Most Recent: Last Vital Signs Temp 36.8 C 09/06/17 13:35 Pulse 66 09/06/17 13:35 Resp 20 09/06/17 13:35 BP 129/58 L 09/06/17 13:35 Pulse Ox 94 L 09/06/17 13:35 Weight - Most Recent: 92.986 kg I&O - Last 24 hours: Intake & Output 09/05/17 09/06/17 09/06/17 22:59 06:59 14:59 Intake Total 200 160 Output Total 220 1000 Balance -20 -840 Lab Results - Last 24 hrs: Laboratory Results - last 24 hr 09/05/17 09/06/17 09/06/17 Range/Units 23:20 05:27 06:50 WBC 6.3 (4.0-10.0) x10^3/uL RBC 2.23 L (4.00-5.50) x10^6/uL Hgb 6.3 L* (12.0-16.0) g/dL Hct 22.6 L (33.0-47.0) % MCV 101.3 H D (78.0-93.0) fL MCH 28.3 (26.0-32.0) pg MCHC 27.9 L (32.0-36.0) g/dL RDW Coeff of Don 21.9 H (10.0-15.0) % Plt Count 274 D (130-400) x10^3/uL Neut % (Auto) 83.4 H (50.0-80.0) % Lymph % (Auto) 8.5 L (25.0-50.0) % [place] % (Auto) 7.7 (2.0-11.0) % Eos % (Auto) 0.2 (0.0-4.0) % Baso % (Auto) 0.2 (0.2-1.2) % Sodium (136-145) mmol/L Potassium (3.5-5.1) mmol/L Chloride (98-107) mmol/L Carbon Dioxide (21-32) mmol/L BUN (7-18) mg/dL Creatinine (0.55-1.02) mg/dL Est Cr Clr Drug Dosing mL/min Estimated GFR (MDRD) Glucose (74-106) mg/dL POC Glucose 147 H 130 H (74-106) mg/dL Calcium (8.5-10.1) mg/dL Corrected Calcium (8.5-10.1) mg/dL Total Bilirubin (0.2-1.0) mg/dL AST (15-37) U/L ALT (14-59) U/L Alkaline Phosphatase (46-116) U/L Troponin I (<=0.056) ng/mL Total Protein (6.4-8.2) g/dL Albumin (3.4-5.0) g/dL Globulin Albumin/Globulin Ratio Blood Type Gel Antibody Screen Crossmatch 09/06/17 09/06/17 09/06/17 Range/Units 06:50 06:50 11:02 WBC (4.0-10.0) x10^3/uL RBC (4.00-5.50) x10^6/uL Hgb (12.0-16.0) g/dL Hct (33.0-47.0) % MCV (78.0-93.0) fL MCH (26.0-32.0) pg MCHC (32.0-36.0) g/dL RDW Coeff of Don (10.0-15.0) % Plt Count (130-400) x10^3/uL Neut % (Auto) (50.0-80.0) % Lymph % (Auto) (25.0-50.0) % [place] % (Auto) (2.0-11.0) % Eos % (Auto) (0.0-4.0) % Baso % (Auto) (0.2-1.2) % Sodium 144 (136-145) mmol/L Potassium 4.1 (3.5-5.1) mmol/L Chloride 106 (98-107) mmol/L Carbon Dioxide 28 (21-32) mmol/L BUN 17 (7-18) mg/dL Creatinine 0.8 (0.55-1.02) mg/dL Est Cr Clr Drug Dosing 38.27 mL/min Estimated GFR (MDRD) > 60 Glucose 128 H (74-106) mg/dL POC Glucose 145 H (74-106) mg/dL Calcium 8.2 L (8.5-10.1) mg/dL Corrected Calcium 9.16 (8.5-10.1) mg/dL Total Bilirubin 0.3 (0.2-1.0) mg/dL AST 21 (15-37) U/L ALT 20 (14-59) U/L Alkaline Phosphatase 82 (46-116) U/L Troponin I 0.098 H* (<=0.056) ng/mL Total Protein 5.7 L (6.4-8.2) g/dL Albumin 2.8 L (3.4-5.0) g/dL Globulin 2.9 Albumin/Globulin Ratio 0.97 Blood Type B POSITIVE Gel Antibody Screen Negative Crossmatch See Detail Med Orders - Current: Current Medications Acetaminophen (Tylenol Extra Strength) 1,000 mg PO BID [facility] Last Admin: 09/06/17 07:41 Dose: 1,000 mg Albuterol (Ventolin Hfa) 0 gm INH Q4H PRN PRN Reason: Cough Alprazolam (Xanax) 0.25 mg PO Q12H PRN PRN Reason: Anxiety Last Admin: 09/06/17 02:22 Dose: 0.25 mg Amlodipine Besylate (Norvasc) 5 mg PO DAILY [facility] Last Admin: 09/06/17 07:40 Dose: 5 mg Artificial Tears (Tears Naturale Free) 1 each EYEBOTH Q4H PRN PRN Reason: Dry Eyes Atorvastatin Calcium (Lipitor) 10 mg PO BEDTIME [facility] Buspirone HCl (Buspar) 22.5 mg PO BID [facility] Last Admin: 09/06/17 07:42 Dose: 22.5 mg Calcium Carbonate/Glycine (Tums Extra Strength) 750 mg PO BID [facility] Last Admin: 09/06/17 07:43 Dose: 750 mg Carvedilol (Coreg) 3.125 mg PO BEDTIME [facility] Carvedilol (Coreg) 6.25 mg PO DAILY [facility] Last Admin: 09/06/17 07:42 Dose: 6.25 mg Cholecalciferol (Vitamin D3) 1,000 units PO BEDTIME [facility] Citalopram Hydrobromide (Celexa) 40 mg PO DAILY [facility] Last Admin: 09/06/17 07:43 Dose: 40 mg Enoxaparin Sodium (Lovenox) 40 mg SUBCUT DAILY@2100 [facility] Last Admin: 09/06/17 01:08 Dose: Not Given Ferrous Sulfate (Ferrous Sulfate) 325 mg PO DAILY [facility] Last Admin: 09/06/17 07:41 Dose: 325 mg Fish Oil (Fish Oil) 1 gm PO DAILY [facility] Last Admin: 09/06/17 07:42 Dose: 1 gm Furosemide (Lasix) 40 mg PO BIDDIURETIC [facility] Last Admin: 09/06/17 07:40 Dose: 40 mg Levothyroxine Sodium (Synthroid) 50 mcg PO DAILY [facility] Last Admin: 09/06/17 07:40 Dose: 50 mcg Losartan Potassium (Cozaar) 100 mg PO DAILY [facility] Last Admin: 09/06/17 07:43 Dose: 100 mg Non-Formulary Medication (Bilberry Fruit Extract [Bilberry]) 80 mg PO DAILY [facility] Non-Formulary Medication (Biotin [Biotin]) 5 mg PO DAILY [facility] Non-Formulary Medication (Cranberry Extract [Cranberry]) 300 mg PO DAILY [facility] Non-Formulary Medication (Cranberry Extract/Vit C [Azo Cranberry Softgel]) 1 cap PO DAILY [facility] Non-Formulary Medication (Lutein [Lutein]) 20 mg PO DAILY [facility] Non-Formulary Medication (Magnesium Citrate [Magnesium Citrate]) 100 mg PO DAILY [facility] Non-Formulary Medication (Vit C/Vit E Ac/Lut/Mineral 1 [Prosight With Lutein]) 1 tab PO BID [facility] Ondansetron HCl (Zofran) 4 mg IVPUSH Q8H PRN PRN Reason: Nausea Pantoprazole Sodium (Protonix Iv) 40 mg IVPUSH Q12H [facility] Last Admin: 09/06/17 07:43 Dose: 40 mg Potassium Chloride (Klor-Con 10) 10 meq PO DAILY [facility] Last Admin: 09/06/17 07:42 Dose: 10 meq Pramipexole Dihydrochloride (Mirapex) 0.25 mg PO BEDTIME [facility] Pramipexole Dihydrochloride (Mirapex) 0.125 mg PO DAILY@1000 [facility] Last Admin: 09/06/17 09:18 Dose: 0.125 mg Sodium Chloride (Saline Flush) 10 ml FLUSH ASDIRECTED PRN PRN Reason: Keep Vein Open Last Admin: 09/06/17 07:44 Dose: 10 ml Vitamin B Complex/Vit C/Vit E/Zinc (Stress Formula With Zinc) 1 tab PO BID [facility] Last Admin: 09/06/17 07:40 Dose: 1 tab Discontinued Medications Al Hydroxide/Mg Hydroxide (Gi Cocktail) 30 ml PO ONETIME ONE Stop: 09/06/17 12:14 Last Admin: 09/06/17 13:43 Dose: 30 ml Furosemide (Lasix) 40 mg IV ONETIME ONE Stop: 09/06/17 08:45 Last Admin: 09/06/17 09:18 Dose: 40 mg Iopamidol (Isovue-300 (61%)) 100 ml IVPUSH ONETIME ONE Stop: 09/06/17 12:21 Last Admin: 09/06/17 14:02 Dose: 100 ml Ondansetron HCl (Zofran) 4 mg IVPUSH ONETIME ONE Stop: 09/05/17 19:59 Last Admin: 09/05/17 20:56 Dose: 4 mg Ondansetron HCl (Zofran) 4 mg IVPUSH ONETIME ONE Stop: 09/06/17 02:12 Last Admin: 09/06/17 02:22 Dose: 4 mg Pantoprazole Sodium (Protonix Iv) 40 mg IVPUSH ONETIME ONE Stop: 09/05/17 19:59 Last Admin: 09/05/17 21:01 Dose: 40 mg - Exam Quality Assessment: Reports: Supplemental Oxygen (3 liters, NC) General: Reports: Alert, Oriented, Cooperative HEENT: Reports: Pupils Equal, Pupils Reactive, EOMI, Mucous Membr. Moist/[place] Neck: Reports: Supple Lungs: Reports: Clear to Auscultation, Normal Respiratory Effort Cardiovascular: Reports: Regular Rate, Murmurs GI/Abdominal Exam: Normal Bowel Sounds, Soft, Non-Tender, No Organomegaly, No Distention, No Abnormal Bruit, No Mass, Pelvis Stable Back Exam: Reports: Normal Inspection, Full Range of Motion Extremities: Normal Inspection, Normal Range of Motion, Non-Tender, No Pedal Edema, Normal Capillary Refill Skin: Reports: Warm, Dry, Intact Neurological: Reports: No New Focal Deficit Psy/Mental Status: Reports: Alert, Normal Affect, Normal Mood *Q Meaningful Use (DIS) - VTE *Q VTE Criteria *Q: - Stroke *Q Stroke Criteria *Q: - AMI *Q AMI Criteria *Q:
[2017-09-06] MEDS ORDERED: Cholecalciferol (Vitamin D3) 1,000 Unit Tab PO SCH (20:00)
[2017-09-06] MEDS ORDERED: atorvaSTATin 10 MG Tab PO SCH (20:00)
== END 2017-09-06 15:40 | disposition short-term general hospital (02) ==
LOC: VM.ED 18:22 → VM.MS 20:53
PROVIDERS: ADMIT Physician Assistant; ATTEND Physician Assistant
DX: K31.89 Other diseases of stomach and duodenum (principal); I11.0 Hypertensive heart disease with heart failure; I50.33 Acute on chronic diastolic (congestive) heart failure; D64.9 Anemia, unspecified; J44.9 Chronic obstructive pulmonary disease, unspecified; G47.30 Sleep apnea, unspecified; E66.9 Obesity, unspecified; H35.30 Unspecified macular degeneration; E78.00 Pure hypercholesterolemia, unspecified; F41.9 Anxiety disorder, unspecified; Z88.1 Allergy status to other antibiotic agents; Z88.5 Allergy status to narcotic agent; Z88.8 Allergy status to other drugs, medicaments and biological substances; Z79.899 Other long term (current) drug therapy; Z96.649 Presence of unspecified artificial hip joint; Z96.659 Presence of unspecified artificial knee joint
CPT/HCPCS: 36000; 36415; 36430; 74022; 74177; 80053; 82274; 82962; 83605; 83880; 84484; 85025; 85610; 86140; 86850; 86900; 86901; 86920; 86922; 93005; 94760; 96374; 96375; 96376; 99217; 99219; 99220; 99284-GF; 99285; A9270-GY; C9113; G0378; J1940; J2405; J7050; P9016; Q9967

== ENCOUNTER 2017-11-17 10:14 | Emergency (ER) | payer MEDICARE, BC ==
[2017-11-17] MEDS ORDERED: Albuterol 0.042% 1.25 MG/3 ML Neb Soln ONE (10:20)
[2017-11-17] MEDS ORDERED: Furosemide 40 MG/4 ML VIAL ONE (10:20)
[2017-11-17] MEDS ORDERED: Furosemide 40 MG/4 ML VIAL IV ONE (10:20)
[2017-11-17] MEDS ORDERED: Albuterol 0.083% 2.5 MG/3 ML Neb Soln ONE (10:20)
[2017-11-17] MEDS ORDERED: methylPREDNISolone Sodium Succinate 125 MG/2 ML SDV ONE (10:21)
[2017-11-17] MEDS ORDERED: Albuterol/Ipratropium 3.0-0.5 MG/3 ML Neb Soln ONE (10:44)
[2017-11-17] MEDS ORDERED: Sodium Chloride 0.9% 10 ML Syringe FLUSH PRN (11:06)
--- NOTE | 2017-11-17 11:14 | EDM.PDOC ---
ED HPI GENERAL MEDICAL PROBLEM - General Chief Complaint: Respiratory Problem Stated Complaint: respiratory distress Time Seen by Provider: 11/17/17 10:14 Source of Information: Reports: Family History Limitations: Reports: Respiratory Distress - History of Present Illness INITIAL COMMENTS - FREE TEXT/NARRATIVE: Pt comes in with approximately 1 hour shortness of breath. The son states that the mother has been having similar episodes/symptoms on a daily basis for the last 10 days when she gets up in the morning. It last less than 30 mins when she getting dressed she was comes very short of breath. However after she gets moving for the resp distress is relieved in the patient's able to continue. However this morning the patient was unable to catch her breath after getting dressed. Patient was brought in by private car with the son. Patient unable to answer any questions due to shortness of breath. Onset: Sudden - Related Data Allergies Allergy/AdvReac Type Severity Reaction Status Date / Time amoxicillin Allergy Other Verified 11/17/17 11:32 codeine Allergy Hives Verified 11/17/17 11:32 lisinopril Allergy Bronchospas Verified 11/17/17 11:32 ms amoxicillin trihydrate AdvReac Nausea and Verified 11/17/17 11:32 [From Augmentin] Vomiting hydrocodone AdvReac Nausea and Verified 11/17/17 11:32 Vomiting potassium clavulanate AdvReac Nausea and Verified 11/17/17 11:32 [From Augmentin] Vomiting tramadol AdvReac Nausea and Verified 11/17/17 11:32 Vomiting Home Meds: Home Meds Acetaminophen [Acetaminophen Es] 1,000 mg PO BID 03/25/14 [History] Bilberry Fruit Extract [Bilberry] 80 mg PO DAILY 03/25/14 [History] Calcium Carbonate [Calcium] 600 mg PO BID 03/25/14 [History] Carvedilol [Coreg] 3.125 mg PO BEDTIME 03/25/14 [History] Carvedilol [Coreg] 6.25 mg PO DAILY 03/25/14 [History] Cholecalciferol (Vitamin D3) [Vitamin D3] 1,000 units PO BEDTIME 03/25/14 [ History] Cranberry Extract [Cranberry] 300 mg PO DAILY 03/25/14 [History] Losartan [Cozaar] 100 mg PO DAILY 03/25/14 [History] Lutein 20 mg PO DAILY 03/25/14 [History] [place]-3 Fatty Acids [[place]-3] 1,000 mg PO DAILY 03/25/14 [History] Pramipexole [Mirapex] 0.125 mg PO DAILY@1000 03/25/14 [History] Pramipexole [Mirapex] 0.25 mg PO BEDTIME 03/25/14 [History] Vit C/Vit E Ac/Lut/Mineral 1 [Prosight with Lutein] 1 tab PO BID 03/25/14 [ History] busPIRone HCl [Buspirone HCl] 22.5 mg PO BID 03/25/14 [History] ALPRAZolam [Alprazolam] 0.25 mg PO Q12H PRN 08/09/17 [History] Biotin 5 mg PO DAILY 08/09/17 [History] Citalopram [Celexa] 40 mg PO DAILY 08/09/17 [History] Cranberry Extract/Vit C [Azo Cranberry Softgel] 1 cap PO DAILY 08/09/17 [History ] Levothyroxine [Synthroid] 50 mcg PO DAILY 08/09/17 [History] Magnesium Citrate 100 mg PO DAILY 08/09/17 [History] Propylene Glycol/Peg 400 [Systane 0.3-0.4% Eye Drops] 1 drop EYEBOTH Q4H PRN 11/21 [History] Albuterol [IJD: Albuterol HFA] 2 puff INH Q4H PRN 08/12/17 [History] Multivitamin [Multivitamins] 1 tab PO BID 08/12/17 [History] Nystatin/Triamcinolone Crm [Mycolog Crm] 1 applic TOP BID PRN 08/12/17 [History] amLODIPine [Norvasc] 5 mg PO DAILY 08/12/17 [History] atorvaSTATin [Lipitor] 10 mg PO BEDTIME 08/12/17 [History] Ferrous Sulfate 325 mg PO DAILY tablet 08/13/17 [Rx] Furosemide [Lasix] 40 mg PO BIDDIURETIC tablet 08/13/17 [Rx] Potassium Chloride [Klor-Con 10] 10 meq PO DAILY tab.er 08/13/17 [Rx] Omeprazole Magnesium 40 mg PO BID 09/06/17 [History] Past Medical History HEENT History: Reports: Macular Degeneration Cardiovascular History: Reports: Heart Failure, Heart Murmur, High Cholesterol, Hypertension, Pulmonary Hypertension Other Cardiovascular History: Heart failure Respiratory History: Reports: COPD, Sleep Apnea, SOB Gastrointestinal History: Reports: GERD Genitourinary History: Reports: None, Urinary Incontinence Musculoskeletal History: Reports: Arthritis, Back Pain, Chronic Other Neuro History: essential tremor. RLS Psychiatric History: Reports: Anxiety Endocrine/Metabolic History: Reports: Obesity/BMI 30+ Hematologic History: Reports: Anemia Immunologic History: Reports: None Oncologic (Cancer) History: Reports: None Dermatologic History: Reports: None - Infectious Disease History Infectious Disease History: Reports: Chicken Pox, Measles - Past Surgical History HEENT Surgical History: Reports: Adenoidectomy, Cataract Surgery, Tonsillectomy GI Surgical History: Reports: Appendectomy Female Surgical History: Reports: Hysterectomy, Other (See Below) Other Female Surgeries/Procedures: bladder surgery Musculoskeletal Surgical History: Reports: Hip Replacement, Joint Replacement, Knee Replacement Social & Family History - Family History Family Medical History: Noncontributory Cardiac: Reports: Heart Failure, [place] Respiratory: Reports: Other (See Below) Other Respiratory Family Hisory: breathing problem has had pneumonia Oncologic: Reports: Other (See Below) Other Oncologic Family History: stomach - Tobacco Use Smoking Status *Q: Never Smoker Second Hand Smoke Exposure: No - Caffeine Use Caffeine Use: Reports: Soda - Alcohol Use Days Per Week of Alcohol Use: 7 Number of Drinks Per Day: 1 Total Drinks Per Week: 7 - Recreational Drug Use Recreational Drug Use: No - Living Situation & Occupation Living situation: Reports: , Alone ED ROS GENERAL - Review of Systems Review Of Systems: Unable To Obtain ED EXAM, GENERAL - Physical Exam Exam: See Below Exam Limited By: Respiratory Distress General Appearance: Anxious, Severe Distress, Obese Respiratory/Chest: Respiratory Distress, Decreased Breath Sounds, Crackles, Wheezing, Stridor, Accessory Muscle Use Cardiovascular: Tachycardia, Diastolic Murmur, Gallop/S4 GI/Abdominal: Normal Bowel Sounds, Soft, Non-Tender, No Distention, No Abnormal Bruit, No Mass Psychiatric: Anxious Skin Exam: Cool, Cyanosis EKG INTERPRETATION Rhythm: NSR Course - Vital Signs Last Recorded V/S: Last Vital Signs Temp 36.0 C 11/17/17 10:14 Pulse 149 H 11/17/17 10:14 Resp 40 H 11/17/17 10:14 BP 183/110 H 11/17/17 10:14 Pulse Ox 68 L 11/17/17 10:14 - Orders/Labs/Meds Orders: Active Orders 24 hr Category Date Time Status BIPAP Adult [RT BiPAP/CPAP] [RC] ASDIRECTED Care 11/17/17 11:05 Active EKG 12 Lead [EKG Documentation Completion] [RC] STAT Care 11/17/17 10:05 Active Chest 1V Frontal [CR] Stat Exams 11/17/17 10:44 Taken Sodium Chloride 0.9% [Saline Flush] Med 11/17/17 11:06 Active 10 ml FLUSH ASDIRECTED PRN Peripheral IV Insertion Adult [OM.PC] Routine Oth 11/17/17 11:06 Ordered Medication Orders Sodium Chloride (Saline Flush) 10 ml FLUSH ASDIRECTED PRN PRN Reason: Keep Vein Open Last Admin: 11/17/17 10:38 Dose: 10 ml Labs: Laboratory Tests 11/17/17 11/17/17 11/17/17 Range/Units 11:03 11:03 11:03 WBC 8.4 (4.0-10.0) x10^3/uL RBC 3.89 L (4.00-5.50) x10^6/uL Hgb 11.8 L D (12.0-16.0) g/dL Hct 37.6 (33.0-47.0) % MCV 96.7 H D (78.0-93.0) fL MCH 30.3 (26.0-32.0) pg MCHC 31.4 L (32.0-36.0) g/dL RDW Coeff of Don 15.0 (10.0-15.0) % Plt Count 254 (130-400) x10^3/uL POC ABG pH (7.35-7.45) POC ABG pCO2 (35-45) mmHG POC ABG pO2 (80-105) mmHG POC ABG HCO3 (22-26) mmol/L POC ABG Total CO2 (23-27) mmol/L POC ABG O2 Sat (95-98) % POC ABG Base Excess (-2-3) mmol/L O2 Delivery Device Sodium 137 (136-145) mmol/L Potassium 5.0 (3.5-5.1) mmol/L Chloride 100 (98-107) mmol/L Carbon Dioxide 30 (21-32) mmol/L Anion Gap 12.0 BUN 15 (7-18) mg/dL Creatinine 1.2 H (0.55-1.02) mg/dL Est Cr Clr Drug Dosing TNP Estimated GFR (MDRD) 43 Glucose 251 H (74-106) mg/dL Lactic Acid 3.5 H* (0.4-2.0) mmol/L Calcium 8.5 (8.5-10.1) mg/dL Corrected Calcium 9.14 (8.5-10.1) mg/dL Total Bilirubin 0.5 (0.2-1.0) mg/dL AST 27 (15-37) U/L ALT 33 (14-59) U/L Alkaline Phosphatase 111 (46-116) U/L Troponin I (<=0.056) ng/mL NT-Pro-B Natriuret Pep 34463 H (<=450) pg/mL Total Protein 6.8 (6.4-8.2) g/dL Albumin 3.2 L (3.4-5.0) g/dL Globulin 3.6 Albumin/Globulin Ratio 0.89 POC Result Comm 11/17/17 11/17/17 Range/Units 11:03 11:25 WBC (4.0-10.0) x10^3/uL RBC (4.00-5.50) x10^6/uL Hgb (12.0-16.0) g/dL Hct (33.0-47.0) % MCV (78.0-93.0) fL MCH (26.0-32.0) pg MCHC (32.0-36.0) g/dL RDW Coeff of Don (10.0-15.0) % Plt Count (130-400) x10^3/uL POC ABG pH 7.343 L (7.35-7.45) POC ABG pCO2 62 H* (35-45) mmHG POC ABG pO2 484 H (80-105) mmHG POC ABG HCO3 34 H (22-26) mmol/L POC ABG Total CO2 36 H (23-27) mmol/L POC ABG O2 Sat 100 H (95-98) % POC ABG Base Excess 8 H (-2-3) mmol/L O2 Delivery Device Bipap Sodium (136-145) mmol/L Potassium (3.5-5.1) mmol/L Chloride (98-107) mmol/L Carbon Dioxide (21-32) mmol/L Anion Gap BUN (7-18) mg/dL Creatinine (0.55-1.02) mg/dL Est Cr Clr Drug Dosing Estimated GFR (MDRD) Glucose (74-106) mg/dL Lactic Acid (0.4-2.0) mmol/L Calcium (8.5-10.1) mg/dL Corrected Calcium (8.5-10.1) mg/dL Total Bilirubin (0.2-1.0) mg/dL AST (15-37) U/L ALT (14-59) U/L Alkaline Phosphatase (46-116) U/L Troponin I 0.111 H* (<=0.056) ng/mL NT-Pro-B Natriuret Pep (<=450) pg/mL Total Protein (6.4-8.2) g/dL Albumin (3.4-5.0) g/dL Globulin Albumin/Globulin Ratio POC Result Comm Called critical res Meds: Medications Generic Name Dose Route Start Last Admin Trade Name Frehernan PRN Reason Stop Dose Admin Sodium Chloride 10 ml 11/17/17 11:06 11/17/17 10:38 Saline Flush FLUSH 10 ml ASDIRECTED PRN Administration Keep Vein Open Discontinued Medications Generic Name Dose Route Start Last Admin Trade Name Freq PRN Reason Stop Dose Admin Albuterol Confirm 11/17/17 10:20 11/17/17 11:26 Proventil Neb Soln Administered 11/17/17 10:21 Not Given Dose 1.25 mg .ROUTE .STK-MED ONE Albuterol Confirm 11/17/17 10:20 11/17/17 10:23 Proventil Neb Soln Administered 11/17/17 10:21 2.5 mg Dose Administration 2.5 mg .ROUTE .STK-MED ONE Albuterol/Ipratropium Confirm 11/17/17 10:44 11/17/17 10:44 Duoneb 3.0-0.5 Mg/3 Ml Administered 11/17/17 10:45 3 ml Dose Administration 3 ml .ROUTE .STK-MED ONE Furosemide Confirm 11/17/17 10:20 11/17/17 10:39 Lasix Administered 11/17/17 10:21 40 mg Dose Administration 40 mg .ROUTE .STK-MED ONE Methylprednisolone Sodium Succinate Confirm 11/17/17 10:21 11/17/17 10:41 Solu-Medrol Administered 11/17/17 10:22 125 mg Dose Administration 125 mg .ROUTE .STK-MED ONE Departure - Departure Time of Disposition: 12:10 Disposition: DC/[facility]fer to [facility] 02 Condition: Fair Clinical Impression: Congestive heart failure Qualifiers: Heart failure type: combined systolic and diastolic Heart failure chronicity: acute on chronic Qualified Code(s): I50.43 - Acute on chronic combined systolic (congestive) and diastolic (congestive) heart failure Respiratory failure Qualifiers: Chronicity: acute Respiratory failure complication: hypoxia Qualified Code(s): J96.01 - Acute respiratory failure with hypoxia - Discharge Information Referrals: Violeta Carrillo MD [Primary Care Provider] - Forms: ED Department Discharge, Interfacility Transfer EMTALA - Problem List Review Problem List Initiated/Reviewed/Updated: Yes - My Orders Last 24 Hours: My Active Orders 11/17/17 10:05 EKG 12 Lead [EKG Documentation Completion] [RC] STAT 11/17/17 10:44 Chest 1V Frontal [CR] Stat 11/17/17 11:05 BIPAP Adult [RT BiPAP/CPAP] [RC] ASDIRECTED 11/17/17 11:06 Sodium Chloride 0.9% [Saline Flush] 10 ml FLUSH ASDIRECTED PRN Peripheral IV Insertion Adult [OM.PC] Routine - Assessment/Plan Last 24 Hours: My Active Orders 11/17/17 10:05 EKG 12 Lead [EKG Documentation Completion] [RC] STAT 11/17/17 10:44 Chest 1V Frontal [CR] Stat 11/17/17 11:05 BIPAP Adult [RT BiPAP/CPAP] [RC] ASDIRECTED 11/17/17 11:06 Sodium Chloride 0.9% [Saline Flush] 10 ml FLUSH ASDIRECTED PRN Peripheral IV Insertion Adult [OM.PC] Routine Assessment:: 1. Respiratory failure 2. Shortness of breath Plan: 1. Albuterol given immediately after arrival due to severe respiratory distress use of accessory muscles and around the lips. 2. High flow O2 was given 3. IV was started patient was given 40 mg of Lasix and Solu-Medrol 4. Lasix 40 mg are given due to her respiratory status, extreme swollen extremities, and patient's history of heart failure 5. Patient not responding with the above efforts moved to BiPAP machine at 100% . Patient tolerating BiPAP 6. Labs and Xray completed in ER. Results Reviewed with the Patient and Family 7. Consultation made with [facility] hospitalists/ICU provider. They agree pt will be better managed at a higher level of care. 8. Pt is tolerating Bipap 10/5 50% currently pt will be transported with these setting to [facility].
[2017-11-17 11:53] LABS: CHLORIDE,CL 100 mmol/L (98-107); SODIUM,NA 137 mmol/L (136-145)
[2017-11-17] MEDS ORDERED: Albuterol/Ipratropium 3.0-0.5 MG/3 ML Neb Soln NEB ONE ×2 (12:22→12:24)
[2017-11-17] MEDS ORDERED: Furosemide 20 MG/2 ML VIAL IV ONE (12:23)
[2017-11-17] MEDS ORDERED: Albuterol 0.083% 2.5 MG/3 ML Neb Soln NEB ONE (12:24)
== END 2017-11-17 12:38 | disposition short-term general hospital (02) ==
LOC: VM.ED 10:14
DX: I11.0 Hypertensive heart disease with heart failure (principal); I50.43 Acute on chronic combined systolic (congestive) and diastolic (congestive) heart failure; J96.01 Acute respiratory failure with hypoxia; Z88.1 Allergy status to other antibiotic agents; Z88.5 Allergy status to narcotic agent; Z88.8 Allergy status to other drugs, medicaments and biological substances; Z79.899 Other long term (current) drug therapy
CPT/HCPCS: 36415; 36600; 71045; 80053; 82803; 83605; 83880; 84484; 85027; 93005; 93010; 94640; 94660; 96374; 96375; 96376; 99284-GF; 99285; J1940; J2930; J7050; J7620-GY

== ENCOUNTER 2018-02-24 17:27 | Emergency (ER) | payer MEDICARE, BC ==
[2018-02-24] MEDS ORDERED: Nitrofurantoin Monohydrate/Macrocrystalline 100 MG Cap PO ONE (17:53)
[2018-02-24] MEDS ORDERED: Phenazopyridine 95 MG Tab PO ONE (17:54)
--- NOTE | 2018-02-24 17:54 | EDM.PDOC ---
ED HPI GENERAL MEDICAL PROBLEM - General Chief Complaint: Genitourinary Problem Stated Complaint: UTI Time Seen by Provider: 02/24/18 17:39 Source of Information: Reports: Patient History Limitations: Reports: No Limitations - History of Present Illness INITIAL COMMENTS - FREE TEXT/NARRATIVE: Patient reports burning, pain, frequency and urinary retention since yesterday. She denies fever, back pain or visible blood in urine. She denies chills, or night sweats. No chest pain, SOB, abdominal pain, headache, change in LOC. Onset Date: 02/23/18 Duration: Getting Worse Severity: Mild Associated Symptoms: Reports: No Other Symptoms Vaginal Pain Score (Numeric/FACES): 9 - Related Data Allergies Allergy/AdvReac Type Severity Reaction Status Date / Time amoxicillin Allergy Other Verified 02/24/18 17:39 codeine Allergy Hives Verified 02/24/18 17:39 lisinopril Allergy Bronchospas Verified 02/24/18 17:39 ms amoxicillin trihydrate AdvReac Nausea and Verified 02/24/18 17:39 [From Augmentin] Vomiting hydrocodone AdvReac Nausea and Verified 02/24/18 17:39 Vomiting potassium clavulanate AdvReac Nausea and Verified 02/24/18 17:39 [From Augmentin] Vomiting tramadol AdvReac Nausea and Verified 02/24/18 17:39 Vomiting Home Meds: Home Meds Acetaminophen [Acetaminophen Es] 1,000 mg PO BID 03/25/14 [History] Bilberry Fruit Extract [Bilberry] 40 mg PO DAILY 03/25/14 [History] Cranberry Extract [Cranberry] 300 mg PO DAILY 03/25/14 [History] Losartan [Cozaar] 25 mg PO DAILY 03/25/14 [History] Lutein 15 mg PO DAILY 03/25/14 [History] Dora-3 Fatty Acids [Dora-3] 1,200 mg PO DAILY 03/25/14 [History] Pramipexole [Mirapex] 0.125 mg PO DAILY@0800 03/25/14 [History] Pramipexole [Mirapex] 0.25 mg PO DAILY@1700 03/25/14 [History] Vit C/Vit E Ac/Lut/Mineral 1 [Prosight with Lutein] 1 tab PO DAILY 03/25/14 [ History] busPIRone HCl [Buspirone HCl] 30 mg PO BID 03/25/14 [History] ALPRAZolam [Alprazolam] 0.25 mg PO Q12H PRN 08/09/17 [History] Biotin 5,000 mg PO DAILY 08/09/17 [History] Levothyroxine [Synthroid] 50 mcg PO DAILY 08/09/17 [History] Propylene Glycol/Peg 400 [Systane 0.3-0.4% Eye Drops] 1 drop EYEBOTH Q4H PRN 11/21 [History] Multivitamin [Multivitamins] 1 tab PO BID 08/12/17 [History] Nystatin/Triamcinolone Crm [Mycolog Crm] 1 applic TOP BID PRN 08/12/17 [History] atorvaSTATin [Lipitor] 40 mg PO BEDTIME 08/12/17 [History] Ferrous Sulfate 325 mg PO DAILY tablet 08/13/17 [Rx] Potassium Chloride [Klor-Con 10] 10 meq PO DAILY tab.er 08/13/17 [Rx] Omeprazole Magnesium 40 mg PO BID 09/06/17 [History] Citalopram Hydrobromide [Celexa] 40 mg PO DAILY 11/17/17 [History] Docusate Sodium [Colace] 100 mg PO DAILY 11/17/17 [History] Azo Yeast Plus 1 tab PO DAILY 02/24/18 [History] Calcium Citrate/Vitamin D2 [Calcium with Vit D Tablet] 1 each PO BID 02/24/18 [ History] Furosemide 80 mg PO DAILY PRN 02/24/18 [History] Furosemide [Lasix] 80 mg PO BIDDIURETIC 02/24/18 [History] Magnesium Oxide [Magnesium] 400 mg PO DAILY 02/24/18 [History] Sucralfate [Carafate] 1 gm PO QID 02/24/18 [History] guaiFENesin [Mucinex] 600 mg PO ASDIRECTED PRN 02/24/18 [History] metOLazone [Zaroxolyn] 2.5 mg PO ASDIRECTED 02/24/18 [History] Past Medical History HEENT History: Reports: Macular Degeneration Cardiovascular History: Reports: Heart Failure, Heart Murmur, High Cholesterol, Hypertension, Pulmonary Hypertension Other Cardiovascular History: Heart failure Respiratory History: Reports: COPD, Sleep Apnea, SOB Gastrointestinal History: Reports: GERD Genitourinary History: Reports: None, Urinary Incontinence Musculoskeletal History: Reports: Arthritis, Back Pain, Chronic Other Neuro History: essential tremor. RLS Psychiatric History: Reports: Anxiety Endocrine/Metabolic History: Reports: Obesity/BMI 30+ Hematologic History: Reports: Anemia Immunologic History: Reports: None Oncologic (Cancer) History: Reports: None Dermatologic History: Reports: None - Infectious Disease History Infectious Disease History: Reports: Chicken Pox, Measles - Past Surgical History HEENT Surgical History: Reports: Adenoidectomy, Cataract Surgery, Tonsillectomy GI Surgical History: Reports: Appendectomy Female Surgical History: Reports: Hysterectomy, Other (See Below) Other Female Surgeries/Procedures: bladder surgery Musculoskeletal Surgical History: Reports: Hip Replacement, Joint Replacement, Knee Replacement Social & Family History - Family History Family Medical History: Noncontributory Cardiac: Reports: Heart Failure, [place] Respiratory: Reports: Other (See Below) Other Respiratory Family Hisory: breathing problem has had pneumonia Oncologic: Reports: Other (See Below) Other Oncologic Family History: stomach - Caffeine Use Caffeine Use: Reports: Soda - Living Situation & Occupation Living situation: Reports: , Alone ED ROS GENERAL - Review of Systems Review Of Systems: See Below Constitutional: Reports: No Symptoms HEENT: Reports: No Symptoms Respiratory: Reports: No Symptoms Cardiovascular: Reports: No Symptoms Endocrine: Reports: No Symptoms GI/Abdominal: Reports: No Symptoms : Reports: Dysuria, Frequency, Urinary Retention Musculoskeletal: Reports: No Symptoms Skin: Reports: No Symptoms Neurological: Reports: No Symptoms Psychiatric: Reports: No Symptoms Hematologic/Lymphatic: Reports: No Symptoms Immunologic: Reports: No Symptoms ED EXAM, RENAL/ - Physical Exam Exam: See Below Exam Limited By: No Limitations General Appearance: Alert, WD/WN, No Apparent Distress Eye Exam: Bilateral Eye: EOMI, PERRL Ears: Normal TMs Nose: Normal Inspection, Normal Mucosa, No Blood Throat/Mouth: Normal Inspection, Normal Lips, Normal Teeth, Normal Gums, Normal Oropharynx, Normal Voice, No Airway Compromise Head: Atraumatic, Normocephalic Neck: Normal Inspection, Supple, Non-Tender, Full Range of Motion Respiratory/Chest: No Respiratory Distress, Lungs Clear, Normal Breath Sounds, No Accessory Muscle Use, Chest Non-Tender Cardiovascular: Systolic Murmur GI/Abdominal: Normal Bowel Sounds, Soft, Non-Tender, No Organomegaly, No Distention, No Abnormal Bruit, No Mass Back Exam: Normal Inspection, Full Range of Motion, NT Extremities: Normal Inspection, Normal Range of Motion, Non-Tender, Normal Capillary Refill, No Pedal Edema Neurological: Alert, Oriented, CN II-XII Intact, Normal Cognition, Normal Gait, Normal Reflexes, No Motor/Sensory Deficits Psychiatric: Normal Affect, Normal Mood Skin Exam: Warm, Dry, Intact, Normal Color, No Rash Lymphatic: No Adenopathy Course - Vital Signs Last Recorded V/S: Last Vital Signs Temp 37.2 C 02/24/18 17:30 Pulse 81 02/24/18 17:30 Resp 22 H 02/24/18 17:30 BP 156/62 H 02/24/18 17:30 Pulse Ox 90 L 02/24/18 17:30 - Orders/Labs/Meds Orders: Active Orders 24 hr Category Date Time Status URINALYSIS W/MICROSCOPIC [UA W/MICROSCOPIC] [URIN] Stat Lab 02/24/18 17:35 Ordered Labs: Laboratory Tests 02/24/18 Range/Units 17:35 Urine Color Yellow (YELLOW) Urine Appearance Turbid H (CLEAR) Urine pH 6.0 (5.0-8.0) Ur Specific [place] 1.015 Urine Protein 100 H (NEGATIVE) mg/dL Urine Glucose (UA) Negative (NEGATIVE) mg/dL Urine Ketones Negative (NEGATIVE) mg/dL Urine Occult Blood Moderate H (NEGATIVE) Urine Nitrite Negative (NEGATIVE) Urine Bilirubin Negative (NEGATIVE) Urine Urobilinogen 0.2 (0.2) EU/dL Ur Leukocyte Esterase Moderate H (NEGATIVE) Urine RBC 5-10 H (NOT SEEN) /HPF Urine WBC >100 H (NOT SEEN) /HPF Urine WBC Clumps Many Ur Squamous Epith Cells Moderate H (NEGATIVE) /HPF Urine Bacteria Moderate H (NEGATIVE) /HPF Urine Mucus Rare H (NEGATIVE) /LPF Meds: Medications Discontinued Medications Generic Name Dose Route Start Last Admin Trade Name Freq PRN Reason Stop Dose Admin Nitrofurantoin Macrocrystals 100 mg 02/24/18 17:53 02/24/18 17:59 Macrobid PO 02/24/18 17:54 100 mg ONETIME ONE Administration Phenazopyridine HCl 95 mg 02/24/18 17:54 02/24/18 17:59 Urinary Pain Relief PO 02/24/18 17:55 95 mg ONETIME ONE Administration Departure - Departure Time of Disposition: 18:23 Disposition: Home, Self-Care 01 Condition: Good Clinical Impression: UTI, Urinary tract infectious disease - Discharge Information *PRESCRIPTION DRUG MONITORING PROGRAM REVIEWED*: Not Applicable *COPY OF PRESCRIPTION DRUG MONITORING REPORT IN PATIENT [place]: Not Applicable Instructions: Urinary Tract Infection, Adult, [id number] Referrals: Violeta Carrillo MD [Primary Care Provider] - Forms: ED Department Discharge Additional Instructions: Drink plenty of fluid to help flush your kidneys and bladder. I prescribed Macrobid. Please take 1 tablet by mouth twice a day for 5 days. When you fill your prescription, also get pyridium. This can reduce the burning sensation when you urinate. Take 1 tablet twice a day for up to 3 days. Follow up with your primary doctor in 7-10 days for a recheck of your urine to be sure the infection has cleared. Also see her for any additional symptom management. Please call the hospital with any questions or concerns. - Problem List & Annotations (1) UTI, Urinary tract infectious disease SNOMED Code(s): 88722705 Code(s): N39.0 - URINARY TRACT INFECTION, SITE NOT SPECIFIED Status: Acute Priority: Low - Problem List Review Problem List Initiated/Reviewed/Updated: Yes - My Orders Last 24 Hours: My Active Orders 02/24/18 17:35 URINALYSIS W/MICROSCOPIC [UA W/MICROSCOPIC] [URIN] Stat - Assessment/Plan Last 24 Hours: My Active Orders 02/24/18 17:35 URINALYSIS W/MICROSCOPIC [UA W/MICROSCOPIC] [URIN] Stat Assessment:: urinary tract infection Plan: Drink plenty of fluid to help flush your kidneys and bladder. I prescribed Macrobid. Please take 1 tablet by mouth twice a day for 5 days. When you fill your prescription, also get pyridium. This can reduce the burning sensation when you urinate. Take 1 tablet twice a day for up to 3 days. Follow up with your primary doctor in 7-10 days for a recheck of your urine to be sure the infection has cleared. Also see her for any additional symptom management. Please call the hospital with any questions or concerns.
== END 2018-02-24 18:39 | disposition home or self-care (01) ==
LOC: VM.ED 17:27
DX: N39.0 Urinary tract infection, site not specified (principal); I11.0 Hypertensive heart disease with heart failure; E78.00 Pure hypercholesterolemia, unspecified; I50.9 Heart failure, unspecified; Z88.1 Allergy status to other antibiotic agents; Z88.5 Allergy status to narcotic agent; Z88.8 Allergy status to other drugs, medicaments and biological substances; Z79.899 Other long term (current) drug therapy
CPT/HCPCS: 81001; 99283; 99284-GF; A9270-GY

== ENCOUNTER 2019-03-25 09:37 | Emergency (ER) | payer MEDICARE, BC ==
[2019-03-25] MEDS ORDERED: Sodium Chloride 0.9% 10 ML Syringe FLUSH PRN (09:44)
--- NOTE | 2019-03-25 10:32 | EDM.PDOC ---
ED HPI GENERAL MEDICAL PROBLEM - General Chief Complaint: Cardiovascular Problem Stated Complaint: SHORT OF BREATH, INCREASE HEART RATE Time Seen by Provider: 03/25/19 09:43 Source of Information: Reports: Patient History Limitations: Reports: No Limitations - History of Present Illness INITIAL COMMENTS - FREE TEXT/NARRATIVE: Patient arrives from the clinic. She denies any complaints. She did have an echocardiogram today. Tech did notify clinic that visual estimation of EF was 20%, and her heart rate was 140. Her primary Dr. Carrillo requested an ED work up. In reviewing her [place] Chart, her last echo indicated a EF of 40%. This was performed in November of 2017. History of moderate to severe aortic stenosis, mild to moderate mitral valve regurgitation. She denies any more shortness of breath than usual. Respiratory rate is in the low 40's. Denies chest pain, abdominal pain, fever, chills, change in mental status, no urinary frequency or dysuria, no blood in urine or stools. She denies all HPI/ROS complaints. Duration: Intermittent Associated Symptoms: Reports: Shortness of Breath (chronic) - Related Data Allergies Allergy/AdvReac Type Severity Reaction Status Date / Time amoxicillin Allergy Other Verified 03/25/19 10:42 codeine Allergy Hives Verified 03/25/19 10:42 lisinopril Allergy Bronchospas Verified 03/25/19 10:42 ms amoxicillin trihydrate AdvReac Nausea and Verified 03/25/19 10:42 [From Augmentin] Vomiting hydrocodone AdvReac Nausea and Verified 03/25/19 10:42 Vomiting potassium clavulanate AdvReac Nausea and Verified 03/25/19 10:42 [From Augmentin] Vomiting tramadol AdvReac Nausea and Verified 03/25/19 10:42 Vomiting Home Meds: Home Meds Acetaminophen [Acetaminophen Es] 1,000 mg PO BID 03/25/14 [History] Bilberry Fruit Extract [Bilberry] 80 mg PO DAILY 03/25/14 [History] Cranberry Extract [Cranberry] 300 mg PO DAILY 03/25/14 [History] Losartan [Cozaar] 25 mg PO DAILY 03/25/14 [History] Lutein 15 mg PO DAILY 03/25/14 [History] Weston-3 Fatty Acids [Weston-3] 1,200 mg PO DAILY 03/25/14 [History] Pramipexole [Mirapex] 0.125 mg PO DAILY@0800 03/25/14 [History] Pramipexole [Mirapex] 0.25 mg PO DAILY@1700 03/25/14 [History] Vit C/Vit E Ac/Lut/Mineral 1 [Prosight with Lutein] 1 tab PO DAILY 03/25/14 [ History] busPIRone HCl [Buspirone HCl] 30 mg PO BID 03/25/14 [History] ALPRAZolam [Alprazolam] 0.25 mg PO Q12H PRN 08/09/17 [History] Levothyroxine [Synthroid] 50 mcg PO DAILY 08/09/17 [History] Propylene Glycol/Peg 400 [Systane 0.3-0.4% Eye Drops] 1 drop EYEBOTH Q4H PRN 11/21 [History] Multivitamin [Multivitamins] 1 tab PO DAILY 08/12/17 [History] Nystatin/Triamcinolone Crm [Mycolog Crm] 1 applic TOP BID PRN 08/12/17 [History] atorvaSTATin [Lipitor] 20 mg PO BEDTIME 08/12/17 [History] Ferrous Sulfate 325 mg PO DAILY tablet 08/13/17 [Rx] Omeprazole Magnesium 40 mg PO BID 09/06/17 [History] Citalopram Hydrobromide [Celexa] 60 mg PO DAILY 11/17/17 [History] Docusate Sodium [Colace] 100 mg PO DAILY 11/17/17 [History] Azo Yeast Plus 1 tab PO DAILY 02/24/18 [History] Calcium Citrate/Vitamin D2 [Calcium with Vit D Tablet] 1 each PO BID 02/24/18 [ History] Furosemide 80 mg PO DAILY PRN 02/24/18 [History] Furosemide [Lasix] 80 mg PO BIDDIURETIC 02/24/18 [History] Sucralfate [Carafate] 1 gm PO BID 02/24/18 [History] guaiFENesin [Mucinex] 600 mg PO ASDIRECTED PRN 02/24/18 [History] metOLazone [Zaroxolyn] 2.5 mg PO ASDIRECTED 02/24/18 [History] Mirabegron [Myrbetriq] 25 mg PO DAILY 03/25/19 [History] Past Medical History HEENT History: Reports: Macular Degeneration Cardiovascular History: Reports: Heart Failure, Heart Murmur, High Cholesterol, Hypertension, Pulmonary Hypertension Other Cardiovascular History: Heart failure Respiratory History: Reports: COPD, Sleep Apnea, SOB Gastrointestinal History: Reports: GERD Genitourinary History: Reports: None, Urinary Incontinence Musculoskeletal History: Reports: Arthritis, Back Pain, Chronic Other Neuro History: essential tremor. RLS Psychiatric History: Reports: Anxiety Endocrine/Metabolic History: Reports: Obesity/BMI 30+ Hematologic History: Reports: Anemia Immunologic History: Reports: None Oncologic (Cancer) History: Reports: None Dermatologic History: Reports: None - Infectious Disease History Infectious Disease History: Reports: Chicken Pox, Measles - Past Surgical History HEENT Surgical History: Reports: Adenoidectomy, Cataract Surgery, Tonsillectomy GI Surgical History: Reports: Appendectomy Female Surgical History: Reports: Hysterectomy, Other (See Below) Other Female Surgeries/Procedures: bladder surgery Musculoskeletal Surgical History: Reports: Hip Replacement, Joint Replacement, Knee Replacement Social & Family History - Family History Family Medical History: Noncontributory Cardiac: Reports: Heart Failure, [place] Respiratory: Reports: Other (See Below) Other Respiratory Family Hisory: breathing problem has had pneumonia Oncologic: Reports: Other (See Below) Other Oncologic Family History: stomach - Caffeine Use Caffeine Use: Reports: Soda - Living Situation & Occupation Living situation: Reports: , Alone ED ROS GENERAL - Review of Systems Review Of Systems: See Below Constitutional: Reports: No Symptoms HEENT: Reports: No Symptoms Respiratory: Reports: Shortness of Breath (chronic, not worse than usual) Cardiovascular: Reports: No Symptoms Endocrine: Reports: No Symptoms GI/Abdominal: Reports: No Symptoms : Reports: No Symptoms Musculoskeletal: Reports: No Symptoms Skin: Reports: No Symptoms Neurological: Reports: No Symptoms Psychiatric: Reports: No Symptoms Hematologic/Lymphatic: Reports: No Symptoms Immunologic: Reports: No Symptoms ED EXAM, GENERAL - Physical Exam Exam: See Below Exam Limited By: No Limitations General Appearance: Alert, WD/WN, No Apparent Distress Eye Exam: Bilateral Eye: EOMI, Normal Inspection Nose: Normal Inspection, Normal Mucosa, No Blood Throat/Mouth: Normal Inspection, Normal Lips, Normal Teeth, Normal Gums, Normal Oropharynx, Normal Voice, No Airway Compromise Head: Atraumatic, Normocephalic Neck: Normal Inspection, Supple, Non-Tender, Full Range of Motion Respiratory/Chest: No Accessory Muscle Use, Chest Non-Tender, Crackles Cardiovascular: Tachycardia, Systolic Murmur, Irregularly Irregular Peripheral Pulses: 1+: Posterior Tibial (L), Posterior Tibial (R), Dorsalis Pedis (L), Dorsalis Pedis (R) GI/Abdominal: Normal Bowel Sounds, Soft, Non-Tender Extremities: Pedal Edema (3+ pitting, wears darius wraps) Neurological: Alert, Oriented, CN II-XII Intact, Normal Cognition, Normal Gait, Normal Reflexes, No Motor/Sensory Deficits Psychiatric: Normal Affect, Normal Mood Skin Exam: Warm, Dry, Intact, Normal Color, No Rash Lymphatic: No Adenopathy EKG INTERPRETATION EKG Date: 03/25/19 Rhythm: A-Fib Rate (Beats/Min): 140 P-Wave: Absent QRS: LBBB ST-T: Normal QT: Normal Course - Vital Signs Last Recorded V/S: Last Vital Signs Temp 36.6 C 03/25/19 11:05 Pulse 118 H 03/25/19 11:30 Resp 35 H 03/25/19 11:30 BP 102/75 03/25/19 11:30 Pulse Ox 94 L 03/25/19 11:30 - Orders/Labs/Meds Orders: Active Orders 24 hr Category Date Time Status EKG 12 Lead [EKG Documentation Completion] [RC] STAT Care 03/25/19 09:47 Active Chest 1V Frontal [CR] Stat Exams 03/25/19 09:47 Taken Saline Lock Insert [OM.PC] Routine Oth 03/25/19 09:44 Ordered Labs: Laboratory Tests 03/25/19 03/25/19 03/25/19 Range/Units 10:05 10:05 10:05 WBC 7.7 (4.0-10.0) x10^3/uL RBC 3.70 L (4.00-5.50) x10^6/uL Hgb 11.2 L (12.0-16.0) g/dL Hct 37.9 (33.0-47.0) % MCV 102.4 H D (78.0-93.0) fL MCH 30.3 (26.0-32.0) pg MCHC 29.6 L (32.0-36.0) g/dL RDW Coeff of Don 14.9 (10.0-15.0) % Plt Count 163 D (130-400) x10^3/uL Neut % (Auto) 83.0 H (50.0-80.0) % Lymph % (Auto) 7.7 L (25.0-50.0) % [place] % (Auto) 7.2 (2.0-11.0) % Eos % (Auto) 2.0 (0.0-4.0) % Baso % (Auto) 0.1 L (0.2-1.2) % PT 10.3 (10.0-12.8) SEC INR 0.9 L (2.0-3.5) D-Dimer, Quantitative 0.71 H (<=0.58) mg/LFEU Sodium 147 H D (136-145) mmol/L Potassium 3.5 D (3.5-5.1) mmol/L Chloride 102 (98-107) mmol/L Carbon Dioxide 39 H (21-32) mmol/L Anion Gap 9.5 L (10-20) mmol/L BUN 58 H D (7-18) mg/dL Creatinine 2.3 H (0.55-1.02) mg/dL Est Cr Clr Drug Dosing TNP Estimated GFR (MDRD) 20 Glucose 121 H (74-106) mg/dL Calcium 9.2 (8.5-10.1) mg/dL Corrected Calcium 9.84 (8.5-10.1) mg/dL Magnesium 2.2 (1.8-2.4) mg/dL Total Bilirubin 0.6 (0.2-1.0) mg/dL AST 24 (15-37) U/L ALT 35 (14-59) U/L Alkaline Phosphatase 83 (46-116) U/L Troponin I 0.159 H* (<=0.056) ng/mL NT-Pro-B Natriuret Pep 91319 H (<=450) pg/mL Total Protein 7.1 (6.4-8.2) g/dL Albumin 3.2 L (3.4-5.0) g/dL Globulin 3.9 Albumin/Globulin Ratio 0.82 TSH, Ultra Sensitive 1.986 (0.358-3.74) uIU/mL Meds: Medications Discontinued Medications Generic Name Dose Route Start Last Admin Trade Name Freq PRN Reason Stop Dose Admin Furosemide 40 mg 03/25/19 10:52 03/25/19 11:04 Lasix IV 03/25/19 10:53 40 mg ONETIME ONE Administration Sodium Chloride 10 ml 03/25/19 09:44 Saline Flush FLUSH ASDIRECTED PRN Keep Vein Open - Radiology Interpretation Free Text/Narrative:: Chest x-ray indicated CHF exacerbation Departure - Departure Time of Disposition: 12:50 Disposition: DC/Tfer to Acute Hospital 02 Reason for Transfer *Q: Other Condition: Fair Clinical Impression: Congestive heart failure Qualifiers: Heart failure type: combined systolic and diastolic Heart failure chronicity: acute on chronic Qualified Code(s): I50.43 - Acute on chronic combined systolic (congestive) and diastolic (congestive) heart failure Referrals: Violeta Carrillo MD [Primary Care Provider] - Forms: ED Department Discharge, Interfacility Transfer [facility] ED Communication - ED Communication Date/Time Date: 03/25/19 Time Called: 11:15 - Discussed Case With (1) Discussed Case With (1): Admitting Provider (Dr. Laura Mast given report. Will accept patient transfer.) - Problem List & Annotations (1) Congestive heart failure SNOMED Code(s): 20418802 Code(s): I50.9 - HEART FAILURE, UNSPECIFIED Status: Acute Priority: Medium Qualifiers: Heart failure type: combined systolic and diastolic Heart failure chronicity: acute on chronic Qualified Code(s): I50.43 - Acute on chronic combined systolic (congestive) and diastolic (congestive) heart failure - Problem List Review Problem List Initiated/Reviewed/Updated: Yes - My Orders Last 24 Hours: My Active Orders 03/25/19 09:44 Saline Lock Insert [OM.PC] Routine 03/25/19 09:47 EKG 12 Lead [EKG Documentation Completion] [RC] STAT Chest 1V Frontal [CR] Stat - Assessment/Plan Last 24 Hours: My Active Orders 03/25/19 09:44 Saline Lock Insert [OM.PC] Routine 03/25/19 09:47 EKG 12 Lead [EKG Documentation Completion] [RC] STAT Chest 1V Frontal [CR] Stat
[2019-03-25 10:49] LABS: CHLORIDE,CL 102 mmol/L (98-107); SODIUM,NA 147 mmol/L (136-145)
[2019-03-25 10:50] LABS: ANION GAP 9.5 mmol/L (10-20)
[2019-03-25] MEDS ORDERED: Furosemide 40 MG/4 ML VIAL IV ONE (10:52)
--- NOTE | 2019-03-25 14:43 | CR ---
[id number] RAD/RAD Chest PA or AP 1V EXAM: RAD Chest PA or AP 1V INDICATION: SHORTNESS OF BREATH. COMPARISON: November 17, 2017 DISCUSSION: Cardiomegaly and central vascular congestion. Small bilateral pleural effusion superimposed on low lung volumes and bibasal parenchymal opacity. Findings are consistent with CHF exacerbation. Lung bases demonstrate improved aeration compared to the prior examination. IMPRESSION: As above. Ham Dinh MD 03/25/19 [id number] Thank you for allowing us to participate in the care of your patient.
== END 2019-03-25 12:45 | disposition short-term general hospital (02) ==
LOC: VM.ED 09:37
DX: I11.0 Hypertensive heart disease with heart failure (principal); I50.43 Acute on chronic combined systolic (congestive) and diastolic (congestive) heart failure; E78.00 Pure hypercholesterolemia, unspecified; J44.9 Chronic obstructive pulmonary disease, unspecified; F41.9 Anxiety disorder, unspecified; Z88.1 Allergy status to other antibiotic agents; Z88.5 Allergy status to narcotic agent; Z88.8 Allergy status to other drugs, medicaments and biological substances; Z79.899 Other long term (current) drug therapy
CPT/HCPCS: 36415; 71045; 80053; 83735; 83880; 84443; 84484; 85025; 85379; 85610; 93005; 93010; 96374; 99284; 99285; J1940

== ENCOUNTER 2019-05-15 14:23 | Emergency (ER) | payer MEDICARE, BC ==
[2019-05-15 15:38] LABS: CHLORIDE,CL 102 mmol/L (54-184); SODIUM,NA 145 mmol/L (69-191)
[2019-05-15 15:40] LABS: ANION GAP 10.4 mmol/L (10-20)
--- NOTE | 2019-05-26 06:49 | EDM.PDOC ---
ED HPI GENERAL MEDICAL PROBLEM - General Chief Complaint: General Time Seen by Provider: 05/15/19 14:27 Source of Information: Reports: Patient, Family History Limitations: Reports: No Limitations - History of Present Illness INITIAL COMMENTS - FREE TEXT/NARRATIVE: Pt. was told to come to ER by her manager center at [place]. Labs had been ordered in the clinic, and pt. kidney function and potassium were noted to be abnormal. Pt. offers no complaint. She denies any shortness of breath. No lightheadedness. No chest pain, fever, or chills. Denies any palpitations. Onset Date: 05/15/19 - Related Data Allergies Allergy/AdvReac Type Severity Reaction Status Date / Time amoxicillin Allergy Other Verified 05/15/19 16:48 codeine Allergy Hives Verified 05/15/19 16:48 lisinopril Allergy Bronchospas Verified 05/15/19 16:48 ms amoxicillin trihydrate AdvReac Nausea and Verified 05/15/19 16:48 [From Augmentin] Vomiting hydrocodone AdvReac Nausea and Verified 05/15/19 16:48 Vomiting potassium clavulanate AdvReac Nausea and Verified 05/15/19 16:48 [From Augmentin] Vomiting tramadol AdvReac Nausea and Verified 05/15/19 16:48 Vomiting Home Meds: Home Meds Acetaminophen [Acetaminophen Es] 1,000 mg PO BID 03/25/14 [History] Bilberry Fruit Extract [Bilberry] 80 mg PO DAILY 03/25/14 [History] Cranberry Extract [Cranberry] 300 mg PO DAILY 03/25/14 [History] [place]-3 Fatty Acids [[place]-3] 1,200 mg PO DAILY 03/25/14 [History] Pramipexole [Mirapex] 0.125 mg PO DAILY@0800 03/25/14 [History] Pramipexole [Mirapex] 0.25 mg PO DAILY@1700 03/25/14 [History] busPIRone HCl [Buspirone HCl] 30 mg PO BID 03/25/14 [History] Levothyroxine [Synthroid] 50 mcg PO DAILY 08/09/17 [History] Multivitamin [Multivitamins] 1 tab PO DAILY 08/12/17 [History] Nystatin/Triamcinolone Crm [Mycolog Crm] 1 applic TOP BID PRN 08/12/17 [History] atorvaSTATin [Lipitor] 20 mg PO BEDTIME 08/12/17 [History] Ferrous Sulfate 325 mg PO DAILY tablet 08/13/17 [Rx] Omeprazole Magnesium 40 mg PO BID 09/06/17 [History] Citalopram Hydrobromide [Celexa] 60 mg PO DAILY 11/17/17 [History] Calcium Citrate/Vitamin D2 [Calcium with Vit D Tablet] 1 each PO BID 02/24/18 [ History] Sucralfate [Carafate] 1 gm PO BID 02/24/18 [History] guaiFENesin [Mucinex] 600 mg PO ASDIRECTED PRN 02/24/18 [History] Mirabegron [Myrbetriq] 25 mg PO DAILY 03/25/19 [History] Albuterol [Ventolin HFA] 2 puff IH Q4H PRN 05/15/19 [History] Aspirin 81 mg PO DAILY 05/15/19 [History] Biotin 1,000 mcg PO DAILY 05/15/19 [History] Bumetanide [Bumex] 5 mg PO BID 05/15/19 [History] Carvedilol [Coreg] 3.125 mg PO BID 05/15/19 [History] Docusate Sodium [Colace] 100 mg PO DAILY 05/15/19 [History] Isosorbide Dinitrate 10 mg PO TID 05/15/19 [History] Melatonin/Pyridoxine HCl (B6) [Melatonin 3 mg Tablet] 1 each PO BEDTIME [History] Propylene Glycol/PEG 400/Pf [Systane 0.3-0.4% Eye Drops] 1 each OP Q4H 05/15/19 [History] Vit C/Vit E Ac/Lut/Mineral 1 [Prosight with Lutein] 1 each PO DAILY 05/15/19 [ History] hydrALAZINE [Apresoline] 10 mg PO Q8H 05/15/19 [History] Past Medical History HEENT History: Reports: Macular Degeneration Cardiovascular History: Reports: Heart Failure, Heart Murmur, High Cholesterol, Hypertension, Pulmonary Hypertension Other Cardiovascular History: Heart failure Respiratory History: Reports: COPD, Sleep Apnea, SOB Gastrointestinal History: Reports: GERD Genitourinary History: Reports: None, Urinary Incontinence Musculoskeletal History: Reports: Arthritis, Back Pain, Chronic Neurological History: Reports: TIA Other Neuro History: essential tremor. RLS Psychiatric History: Reports: Anxiety Endocrine/Metabolic History: Reports: Obesity/BMI 30+ Hematologic History: Reports: Anemia Immunologic History: Reports: None Oncologic (Cancer) History: Reports: None Dermatologic History: Reports: None - Infectious Disease History Infectious Disease History: Reports: Chicken Pox, Measles - Past Surgical History HEENT Surgical History: Reports: Adenoidectomy, Cataract Surgery, Tonsillectomy GI Surgical History: Reports: Appendectomy Female Surgical History: Reports: Hysterectomy, Other (See Below) Other Female Surgeries/Procedures: bladder surgery Musculoskeletal Surgical History: Reports: Hip Replacement, Joint Replacement, Knee Replacement Social & Family History - Family History Family Medical History: Noncontributory Cardiac: Reports: Heart Failure, [place] Respiratory: Reports: Other (See Below) Other Respiratory Family Hisory: breathing problem has had pneumonia Oncologic: Reports: Other (See Below) Other Oncologic Family History: stomach - Tobacco Use Smoking Status *Q: Never Smoker - Caffeine Use Caffeine Use: Reports: Soda - Living Situation & Occupation Living situation: Reports: , Alone ED ROS GENERAL - Review of Systems Review Of Systems: See Below Constitutional: Reports: No Symptoms HEENT: Reports: No Symptoms Respiratory: Reports: Shortness of Breath (No worse than normal. Scheduled for valve replacement soon.) Cardiovascular: Reports: No Symptoms Endocrine: Reports: No Symptoms GI/Abdominal: Reports: No Symptoms : Reports: No Symptoms Musculoskeletal: Reports: No Symptoms Skin: Reports: No Symptoms Neurological: Reports: No Symptoms Hematologic/Lymphatic: Reports: No Symptoms Immunologic: Reports: No Symptoms ED EXAM, GENERAL - Physical Exam Exam: See Below Exam Limited By: No Limitations General Appearance: Alert, WD/WN, No Apparent Distress Respiratory/Chest: No Respiratory Distress, Lungs Clear, Normal Breath Sounds, No Accessory Muscle Use, Chest Non-Tender Cardiovascular: Normal Peripheral Pulses, Regular Rate, Rhythm, No Edema, No Gallop, No JVD, No Murmur, No Rub GI/Abdominal: Normal Bowel Sounds, Soft, Non-Tender, No Organomegaly, No Distention, No Abnormal Bruit, No Mass, Pelvis Stable Course - Vital Signs Last Recorded V/S: Last Vital Signs Temp 36.9 C 05/15/19 14:25 Pulse 74 05/15/19 14:25 Resp 16 05/15/19 14:25 BP 133/56 L 05/15/19 14:25 Pulse Ox 98 05/15/19 14:25 - Orders/Labs/Meds Labs: Laboratory Tests 05/15/19 05/15/19 Range/Units 15:01 15:01 WBC 5.1 (4.0-10.0) x10^3/uL RBC 2.68 L (4.00-5.50) x10^6/uL Hgb 8.2 L D (12.0-16.0) g/dL Hct 27.0 L (33.0-47.0) % MCV 100.7 H (78.0-93.0) fL MCH 30.6 (26.0-32.0) pg MCHC 30.4 L (32.0-36.0) g/dL RDW Coeff of Don 14.1 (10.0-15.0) % Plt Count 188 (130-400) x10^3/uL Neut % (Auto) 77.3 (50.0-80.0) % Lymph % (Auto) 9.2 L (25.0-50.0) % [place] % (Auto) 10.0 (2.0-11.0) % Eos % (Auto) 3.3 (0.0-4.0) % Baso % (Auto) 0.2 (0.2-1.2) % Sodium 145 (69-191) mmol/L Potassium 4.4 (1.5-9.9) mmol/L Chloride 102 (54-184) mmol/L Carbon Dioxide 37 H (21-32) mmol/L Anion Gap 10.4 (10-20) mmol/L BUN 51 H (7-18) mg/dL Creatinine 3.0 H (0.55-1.02) mg/dL Est Cr Clr Drug Dosing TNP Estimated GFR (MDRD) 15 Glucose 133 H (74-106) mg/dL Calcium 8.1 L (8.5-10.1) mg/dL Corrected Calcium 8.98 (8.5-10.1) mg/dL Phosphorus 4.5 (2.6-4.7) mg/dL Magnesium 2.4 (1.8-2.4) mg/dL Total Bilirubin 0.3 (0.2-1.0) mg/dL AST 18 (15-37) U/L ALT 22 (14-59) U/L Alkaline Phosphatase 81 (46-116) U/L NT-Pro-B Natriuret Pep 58031 H (<=450) pg/mL Total Protein 6.3 L (6.4-8.2) g/dL Albumin 2.9 L (3.4-5.0) g/dL Globulin 3.4 Albumin/Globulin Ratio 0.85 Departure - Departure Time of Disposition: 16:00 Disposition: Home, Self-Care 01 Clinical Impression: CKD (chronic kidney disease) - Discharge Information Instructions: Chronic Kidney Disease, Adult, [id number] Referrals: Violeta Carrillo MD [Primary Care Provider] - Forms: ED Department Discharge Additional Instructions: Return to ER if you have any shortness of breath or chest pain. Follow-up with Dr. Carrillo and your manager center as planned. Continue with your current medications. - Assessment/Plan Plan: Return to ER if you have any shortness of breath or chest pain. Follow-up with Dr. Carrillo and your manager center as planned. Continue with your current medications.
== END 2019-05-15 16:10 | disposition home or self-care (01) ==
LOC: VM.ED 14:23
DX: N18.9 Chronic kidney disease, unspecified (principal); D63.1 Anemia in chronic kidney disease; I50.9 Heart failure, unspecified; J44.9 Chronic obstructive pulmonary disease, unspecified; K21.9 Gastro-esophageal reflux disease without esophagitis; M19.90 Unspecified osteoarthritis, unspecified site; F41.9 Anxiety disorder, unspecified; E66.9 Obesity, unspecified; Z88.1 Allergy status to other antibiotic agents; Z88.5 Allergy status to narcotic agent; Z88.8 Allergy status to other drugs, medicaments and biological substances; Z79.899 Other long term (current) drug therapy; Z79.82 Long term (current) use of aspirin
CPT/HCPCS: 36415; 80053; 83735; 83880; 84100; 85025; 99283

== ENCOUNTER 2019-08-09 19:54 | Emergency (ER) | payer MEDICARE, BC ==
--- NOTE | 2019-08-09 20:07 | EDM.PDOC ---
ED HPI GENERAL MEDICAL PROBLEM - General Chief Complaint: Abdominal Pain Stated Complaint: GASTROINTESTINAL Time Seen by Provider: 08/09/19 19:54 Source of Information: Reports: Patient History Limitations: Reports: No Limitations - History of Present Illness INITIAL COMMENTS - FREE TEXT/NARRATIVE: Patient comes into the emergency department with complaint of abdominal discomfort. Patient was on hospice N did have nursing personnel follow-up today and noticed that the patient had not had a bowel movement in 8 days and decreased bowel sounds. The patient has been complaining about nausea with this and did have a couple episodes of vomiting. They did call the on-call provider in the stated in emergency visit would be warranted for further investigation regarding the above concerns. She denies any fever, chest pain, numbness of breath, or dysuria. Onset: Gradual Quality: Reports: Other Severity: Moderate Improves with: Reports: None Worsens with: Reports: None Associated Symptoms: Reports: Nausea/Vomiting Low Abdominal Pain Pain Score (Numeric/FACES): 5 - Related Data Allergies Allergy/AdvReac Type Severity Reaction Status Date / Time amoxicillin Allergy Other Verified 08/09/19 20:15 codeine Allergy Hives Verified 08/09/19 20:15 lisinopril Allergy Bronchospas Verified 08/09/19 20:15 ms amoxicillin trihydrate AdvReac Nausea and Verified 08/09/19 20:15 [From Augmentin] Vomiting hydrocodone AdvReac Nausea and Verified 08/09/19 20:15 Vomiting potassium clavulanate AdvReac Nausea and Verified 08/09/19 20:15 [From Augmentin] Vomiting tramadol AdvReac Nausea and Verified 08/09/19 20:15 Vomiting Home Meds: Home Meds Acetaminophen [Acetaminophen Es] 1,000 mg PO BID 03/25/14 [History] [place]-3 Fatty Acids [[place]-3] 1,200 mg PO DAILY 03/25/14 [History] Pramipexole [Mirapex] 0.125 mg PO DAILY@0800 03/25/14 [History] Pramipexole [Mirapex] 0.25 mg PO DAILY@1700 03/25/14 [History] busPIRone HCl [Buspirone HCl] 30 mg PO BID 03/25/14 [History] Levothyroxine [Synthroid] 50 mcg PO DAILY 08/09/17 [History] Multivitamin [Multivitamins] 1 tab PO BID 08/12/17 [History] Nystatin/Triamcinolone Crm [Mycolog Crm] 1 applic TOP BID PRN 08/12/17 [History] atorvaSTATin [Lipitor] 20 mg PO BEDTIME 08/12/17 [History] Ferrous Sulfate 325 mg PO DAILY tablet 08/13/17 [Rx] Omeprazole Magnesium 40 mg PO BID 09/06/17 [History] Citalopram Hydrobromide [Celexa] 60 mg PO DAILY 11/17/17 [History] Calcium Citrate/Vitamin D2 [Calcium with Vit D Tablet] 1 each PO BID 02/24/18 [ History] Sucralfate [Carafate] 1 gm PO BID 02/24/18 [History] Mirabegron [Myrbetriq] 25 mg PO BEDTIME 03/25/19 [History] Albuterol [Ventolin HFA] 2 puff IH Q4H PRN 05/15/19 [History] Biotin 1,000 mg PO DAILY 05/15/19 [History] Bumetanide [Bumex] 5 mg PO BID 05/15/19 [History] Carvedilol [Coreg] 6.25 mg PO BID 05/15/19 [History] Docusate Sodium [Colace] 100 mg PO DAILY 05/15/19 [History] Isosorbide Dinitrate 10 mg PO TID 05/15/19 [History] hydrALAZINE [Apresoline] 25 mg PO TID 05/15/19 [History] ALPRAZolam [Xanax] 0.25 mg PO BID PRN 06/07/19 [History] Clindamycin HCl 2 cap PO ASDIRECTED PRN 06/07/19 [History] Formoterol Fumarate [Perforomist] 2 ml INH BID 06/07/19 [History] Loperamide [Imodium] 2 mg PO ASDIRECTED PRN 06/07/19 [History] Lutein/Minerals/Vit A,C & E [Ocuvite] 1 tab PO DAILY 06/07/19 [History] Melatonin 3 mg PO BEDTIME 06/07/19 [History] Non-Formulary Medication [NF Drug] 1 tab PO DAILY 06/07/19 [History] Propylene Glycol/PEG 400/Pf [Systane 0.3-0.4% Eye Drop] 1 each OP Q4H PRN [History] Revefenacin [Yupelri] 3 ml INH DAILY 06/07/19 [History] Sennosides [Senna] 1 tab PO BID PRN 06/07/19 [History] Past Medical History HEENT History: Reports: Cataract, Macular Degeneration Cardiovascular History: Reports: Heart Failure, Heart Murmur, High Cholesterol, Hypertension, Pulmonary Hypertension, SOB on Exertion, Stents Other Cardiovascular History: Heart failure Respiratory History: Reports: COPD, Sleep Apnea, SOB Gastrointestinal History: Reports: GERD Genitourinary History: Reports: Urinary Incontinence Musculoskeletal History: Reports: Arthritis, Back Pain, Chronic Neurological History: Reports: TIA Other Neuro History: essential tremor. RLS Psychiatric History: Reports: Anxiety Endocrine/Metabolic History: Reports: Obesity/BMI 30+ Hematologic History: Reports: Anemia Immunologic History: Reports: None Oncologic (Cancer) History: Reports: None Dermatologic History: Reports: None - Infectious Disease History Infectious Disease History: Reports: Chicken Pox, Measles - Past Surgical History HEENT Surgical History: Reports: Adenoidectomy, Cataract Surgery, Tonsillectomy Cardiovascular Surgical History: Reports: Valve Replacement GI Surgical History: Reports: Appendectomy, Colonoscopy Female Surgical History: Reports: Hysterectomy, Other (See Below) Other Female Surgeries/Procedures: bladder surgery Neurological Surgical History: Reports: Lumbar Spine, Sacral Spine Other Neurological Surgeries/Procedures: L5-S1 Musculoskeletal Surgical History: Reports: Hip Replacement, Joint Replacement, Knee Replacement Social & Family History - Family History Family Medical History: Noncontributory Cardiac: Reports: Heart Failure, [place] Respiratory: Reports: Other (See Below) Other Respiratory Family Hisory: breathing problem has had pneumonia Oncologic: Reports: Other (See Below) Other Oncologic Family History: stomach - Caffeine Use Caffeine Use: Reports: None - Living Situation & Occupation Living situation: Reports: , Alone ED ROS GENERAL - Review of Systems Review Of Systems: See Below Constitutional: Reports: No Symptoms HEENT: Reports: No Symptoms Respiratory: Reports: No Symptoms Cardiovascular: Reports: No Symptoms Musculoskeletal: Reports: No Symptoms Skin: Reports: No Symptoms Neurological: Reports: No Symptoms Psychiatric: Reports: No Symptoms ED EXAM, GENERAL - Physical Exam Exam: See Below Exam Limited By: No Limitations General Appearance: Alert, WD/WN, No Apparent Distress Head: Atraumatic, Normocephalic Neck: Normal Inspection, Supple, Non-Tender, Full Range of Motion Respiratory/Chest: No Respiratory Distress, Normal Breath Sounds, No Accessory Muscle Use, Chest Non-Tender Cardiovascular: Normal Peripheral Pulses, Regular Rate, Rhythm, No Edema, No Gallop, No JVD, No Murmur, No Rub GI/Abdominal: Soft, Tender, Abnormal Bowel Sounds Back Exam: Normal Inspection, Full Range of Motion, NT Extremities: Normal Inspection, Normal Range of Motion, Non-Tender, Normal Capillary Refill, No Pedal Edema Neurological: Alert, Oriented, CN II-XII Intact, Normal Cognition, Normal Gait, Normal Reflexes, No Motor/Sensory Deficits Psychiatric: Normal Affect, Normal Mood Skin Exam: Warm, Dry, Intact, Normal Color, No Rash Course - Vital Signs Last Recorded V/S: Last Vital Signs Temp 36.5 C 08/09/19 20:05 Pulse 71 08/09/19 20:05 Resp 18 08/09/19 20:05 BP 186/91 H 08/09/19 20:05 Pulse Ox 92 L 08/09/19 20:05 - Orders/Labs/Meds Orders: Active Orders 24 hr Category Date Time Status Oxygen Therapy [RC] ASDIRECTED Care 08/09/19 20:10 Active Abdomen Pelvis wo Cont [CT] Stat Exams 08/09/19 19:59 Taken Labs: Laboratory Tests 08/09/19 08/09/19 Range/Units 20:02 20:02 WBC 7.9 (4.0-10.0) x10^3/uL RBC 3.59 L (4.00-5.50) x10^6/uL Hgb 10.9 L D (12.0-16.0) g/dL Hct 35.4 (33.0-47.0) % MCV 98.6 H (78.0-93.0) fL MCH 30.4 (26.0-32.0) pg MCHC 30.8 L (32.0-36.0) g/dL RDW Coeff of Don 14.0 (10.0-15.0) % Plt Count 188 (130-400) x10^3/uL Neut % (Auto) 88.2 H (50.0-80.0) % Lymph % (Auto) 6.1 L (25.0-50.0) % [place] % (Auto) 5.1 (2.0-11.0) % Eos % (Auto) 0.5 (0.0-4.0) % Baso % (Auto) 0.1 L (0.2-1.2) % Sodium 145 (136-145) mmol/L Potassium 4.3 (3.5-5.1) mmol/L Chloride 99 (98-107) mmol/L Carbon Dioxide 37 H (21-32) mmol/L Anion Gap 13.3 (10-20) mmol/L BUN 38 H (7-18) mg/dL Creatinine 1.9 H (0.55-1.02) mg/dL Est Cr Clr Drug Dosing TNP Estimated GFR (MDRD) 25 Glucose 155 H (74-106) mg/dL Calcium 9.2 (8.5-10.1) mg/dL Corrected Calcium 10.00 (8.5-10.1) mg/dL Total Bilirubin 0.5 (0.2-1.0) mg/dL AST 22 (15-37) U/L ALT 23 (14-59) U/L Alkaline Phosphatase 124 H (46-116) U/L Total Protein 7.0 (6.4-8.2) g/dL Albumin 3.0 L (3.4-5.0) g/dL Globulin 4.0 Albumin/Globulin Ratio 0.75 Departure - Departure Time of Disposition: 21:20 Disposition: DC/Tfer to Hospice - Home 50 Condition: Fair Clinical Impression: Diverticulitis - Discharge Information *PRESCRIPTION DRUG MONITORING PROGRAM REVIEWED*: Not Applicable *COPY OF PRESCRIPTION DRUG MONITORING REPORT IN PATIENT [place]: Not Applicable Instructions: Diverticulitis, [id number], Nausea and Vomiting, Adult, Easy-to -Read Forms: ED Department Discharge Additional Instructions: 1. rest 2. increase your water intake 3. Avoid foods that may irritate the colon. See discharge instructions 4. Can take zofran when becoming nauseated 5. Admit to hospice for further management 6. Follow up as needed 7. Call with any questions or concerns Sepsis Event Note - Focused Exam Vital Signs: Vital Signs Temp Pulse Resp BP Pulse Ox Pulse Ox 08/09/19 20:05 36.5 C 71 18 186/91 H 92 L 08/09/19 19:54 92 L Date Exam was Performed: 01/04/20 Time Exam was Performed: 21:12 - My Orders Last 24 Hours: My Active Orders 08/09/19 19:59 Abdomen Pelvis wo Cont [CT] Stat 08/09/19 20:10 Oxygen Therapy [RC] ASDIRECTED - Assessment/Plan Last 24 Hours: My Active Orders 08/09/19 19:59 Abdomen Pelvis wo Cont [CT] Stat 08/09/19 20:10 Oxygen Therapy [RC] ASDIRECTED Assessment:: 1. abdominal pain Plan: 1. Labs completed in ER. Results reviewed with patient 2. CT scan of the abdomen completed in ER. Results reviewed with the patient 3. Pt will return to assisted living under hospice care. Patient/staff is instructed to give Miralax daily for constipation issues, and zofran as needed 4. Education regarding activity, diet, [id number] medication modalities, and follow-up care was provided 5. All questions and concerns were addressed prior to patient's discharge
[2019-08-09 20:31] LABS: CHLORIDE,CL 99 mmol/L (98-107); SODIUM,NA 145 mmol/L (136-145)
[2019-08-09 20:34] LABS: ANION GAP 13.3 mmol/L (10-20)
--- NOTE | 2019-08-10 12:08 | CT ---
[id number] CT/CT Abdomen Pelvis WO IV EXAM: CT Abdomen Pelvis WO IV CLINICAL DATA: LLQ PAIN COMPARISON STUDY: September 28, 2017. FINDINGS: Dense bibasal parenchymal opacities right greater than left. Cardiomegaly. Gallbladder has been resected. Liver, spleen, pancreas, adrenal glands are unremarkable. Punctate nonobstructing right renal calculus. No ureteral calculi or evidence of urinary tract obstruction. Distal left ureter is partially obscured by streak artifact from left hip prosthesis. Extensive diverticulosis in the sigmoid and descending segments of the colon. Mild amount of stranding/edema or reactive change adjacent to the descending segment of the colon with a trace amount of free fluid the pelvis. Early changes of acute diverticulitis or Uterus is been resected. Adnexal regions are unremarkable. No lymphadenopathy. Colitis are possible. No evidence of a bowel obstruction. Small sliding-type hiatus hernia. Advanced changes of spondylosis throughout the spine. Diffuse bone demineralization. Left femoroacetabular arthroplasty. No fracture or osseous lesion. IMPRESSION: Extensive colonic diverticulosis with possible mild changes of acute diverticulitis or less likely colitis involving the descending segment. Trace free fluid the pelvis, nonspecific in etiology. Bibasal parenchymal opacities right greater than left. Correlate for infection as pneumonia is possible. Other findings are described above. Ham Dinh MD 08/10/19 [id number] Thank you for allowing us to participate in the care of your patient.
[2019-08-10] MEDS ORDERED: Take Home: metroNIDAZOLE 500 MG Tab, 4 Tab Pack PO ONE (12:23)
[2019-08-10] MEDS ORDERED: Take Home: Ciprofloxacin 500 MG Tab, 2 Tab Pack PO ONE (12:23)
== END 2019-08-09 21:38 | disposition hospice, home (50) ==
LOC: VM.ED 19:54 → SUPCPDRO 19:54 → VM.ED 21:38
DX: K57.32 Diverticulitis of large intestine without perforation or abscess without bleeding (principal); I11.0 Hypertensive heart disease with heart failure; I50.9 Heart failure, unspecified; E66.9 Obesity, unspecified; F41.9 Anxiety disorder, unspecified; D64.9 Anemia, unspecified; K21.9 Gastro-esophageal reflux disease without esophagitis; Z86.73 Personal history of transient ischemic attack (TIA), and cerebral infarction without residual deficits; Z95.5 Presence of coronary angioplasty implant and graft; Z98.49 Cataract extraction status, unspecified eye; Z98.890 Other specified postprocedural states; Z90.49 Acquired absence of other specified parts of digestive tract; Z90.710 Acquired absence of both cervix and uterus; Z79.899 Other long term (current) drug therapy; Z88.1 Allergy status to other antibiotic agents; Z88.5 Allergy status to narcotic agent; Z88.8 Allergy status to other drugs, medicaments and biological substances
CPT/HCPCS: 74176; 80053; 85025; 99284-GF; 99285-25